=== PATIENT | female | born 1950 | race Caucasian/White ===

== ENCOUNTER → 2020-04-24 11:55 | Outpatient (BNVA) | payer MEDICARE, SELFPAY | PROVIDERS: Family Provider Family Medicine; PCP Family Medicine; Visit Provider Family Medicine | DX: I10 Essential (primary) hypertension (principal) | CPT/HCPCS: 80053; 85025 ==

== ENCOUNTER → 2021-04-24 10:28 | Outpatient (BNVA) | payer MEDICARE, SELFPAY | PROVIDERS: Family Provider Family Medicine; PCP Family Medicine; Visit Provider Family Medicine | DX: Z00.00 Encounter for general adult medical examination without abnormal findings (principal); I10 Essential (primary) hypertension; F41.9 Anxiety disorder, unspecified; M54.42 Lumbago with sciatica, left side; M54.41 Lumbago with sciatica, right side; G89.29 Other chronic pain | CPT/HCPCS: 80053; 85025 ==

== ENCOUNTER 2022-04-22 17:30 | Observation (INO) | payer MEDICARE, SELFPAY ==
[2022-04-22] VITALS (7 sets, daily range): BP systolic 136–197; BP diastolic 62–98; PULSE 62–76; RESP 14–20; TEMP 36.8; O2SAT 95–98; BMI 15.5
--- NOTE | 2022-04-22 17:34 | XR_ITS ---
WS: [id number] XR chest 1V portable [id number] REASON FOR EXAM: chest pain FINDINGS: Thoracic aorta is calcified without significant tortuosity or ectasia. Normal heart size. Calcified granulomatous disease in both hemithoraces. The lungs are hyperexpanded with significant flattening of the hemidiaphragms. Ill-defined areas of l ucency throughout both lungs compatible with central lobar emphysema. No acute pulmonary parenchymal or pleural abnormality. No significant abnormality of the bony thorax. XR/XR chest 1V portable [id number] IMPRESSION: Obstructive lung disease, central lobar emphysema. No acute abnormality.
--- NOTE | 2022-04-22 17:34 | ECG_ITS ---
[facility] Test Date: 2022-04-22 Pat Name: Lyndsay Jerome Department: Room: Gender: Female Coo: : 1950 Requested By: Slime Ch Order Number: [id number] Ilsa MD: Thompson Henriquez M.D. Measurements Intervals [place] Rate: 70 P: 87 CT: 180 QRS: 91 QRSD: 123 T: 74 QT: 408 QTc: 443 Interpretive Statements SINUS RHYTHM RIGHT BUNDLE BRANCH BLOCK [120+ ms QRS DURATION, UPRIGHT V1, 40+ ms S IN I/aVL/V4/V5/V6] INTERPRETATION BASED ON A DEFAULT AGE OF 40 YEARS No previous ECG available for comparison Electronically Signed On 04-22-2022 21:51:07 CDT by Thompson Henriquez M.D. [email or web address].[employer]/store/NU/[id number] f
--- NOTE | 2022-04-22 17:46 | ED_ITS ---
HPI - General Adult General: Chief complaint: Extremity Problem,Nontraumatic Stated complaint: NUMBNESS ON LEFT SIDE Time Seen by Provider: 04/22/22 17:32 History of Present Illness: Patient is a 71-year-old female with a history of hypertension, anxiety and lower back pain who presents the emergency room with complaints of left shoulder/neck pain, L sided facial numbness nausea and vomiting since 3:30 PM. Since then, patient also reports left-sided facial numbness and left-sided neck pain. Patient says that this is sudden onset. Denies any active chest pain, shortness of breath or dyspnea on exertion or pleuritic chest pain. Denies any diaphoresis, nausea/vomiting, diarrhea, melena/hematochezia, abdominal complaints or complaints at this time. NIHSS score of 0 on arrival. Denies any recent trauma or injuries. Onset:3:30pm Duration:ongoing Location:home Severity:moderate Associated symptoms: Deny chest pain, dyspnea, nausea, rash, palpitations or vomiting Review of Systems Const: Denies: fever(s) or chills Eyes: Denies: change in vision ENMT: Denies: mouth pain Card: Denies: chest pain or palpitations Resp: Denies: dyspnea or non-productive cough GI: Denies: abdominal pain, nausea, vomiting or diarrhea : Denies: dysuria Musc: Reports: neck pain (+L sided neck pain) and extremity pain (+L shoulder pain) Skin/Breast: Denies: rash or new lesions Neuro: Reports: other (+L facial numbness); Denies: weakness in extremities Psych: Reports: other (Normal mood) Pro/Lymph: Denies: easy bruising PFS ED PFSH: Medical History Anxiety Chronic low back pain Hypertension Social History Smoking and tobacco status: current every day smoker Alcohol intake: never Physical Exam Const: COMMON NORMALS: alert HENMT: COMMON NORMALS: atraumatic HEAD & SCALP: atraumatic MOUTH: moist mucous membranes not abnormal Eye: COMMON NORMALS: EOMs intact bilaterally and conjunctivae normal CONJUNCTIVA: Yes conjunctivae normal Neck/C-Spine: COMMON NORMALS: full ROM and supple Resp: COMMON NORMALS: normal respiratory effort and clear to auscultation bilaterally AUSCULTATION: clear to auscultation bilaterally Cardio: COMMON NORMALS: regular rate RATE: regular rate GI: COMMON NORMALS: Soft to palpation and non-tender PALPATION: Yes Soft to palpation OTHER: No focal TTP. NO guarding rebound, guarding, rigidity. No CVA tenderness to percussion. Neg Ponce/Neg McBurney's point tenderness, no suprabupic tenderness to palpation. Extremity: COMMON NORMALS: full ROM Neuro: SENSORIUM/ORIENTATION: Yes alert MOTOR EXAM: No Abnormal motor stren gth present and Other motor observations present (no focal motor deficits) OTHER: Mental status? Awake, alert, and oriented to self, year, month, location, and situation.? Following simple axial and appendicular commands.? Has appropriate fund of knowledge, comprehension, and insight.? Able to recall and understands pertinent aspects of medical history and current treatment status.? ? Language? Speech is fluent without word-finding difficulties.? Intact naming, expression, medical receptionist medical assistant, and repetition.? ? Cranial nerves? 2,3,4,6: PERRL, EOMI with no nystagmus. 5: Intact sensation to light touch, symmetric? 7: Smile symmetrical, no facial droop.? 8: Hearing grossly intact.? 9,10: Normal palate movement.? 11: Normal strength in trapezius bilaterally 12: Tongue protrudes midline.? ? Motor examination? Normal bulk & tone. Strength as follows (R/L): Delts (5/5), Biceps (5/5), Triceps (5/5), Wrist ext (5/5), hip flexors (5/5), plantarflexors (5/5), dorsiflexors (5/5). Sensation? Light Touch: Grossly intact and equal in upper and lower extremities bila terally? Romberg: Negative.? Distal joint position sense intact ? Coordination? Xlwjhp-jh-zprj-finger movements intact without dysmetria or past-pointing.? Rapid fingertaps: preserved amplitude without decriment.? No tremor, myoclonus or truncal ataxia.? ? Gait/stance? Steady, normal narrow base gait with appropriate arm swing and turning.? Tandem gait without hesitation or loss of balance. Psych: COMMON NORMALS: speech normal SPEECH: Yes normal speech MOOD & AFFECT: Yes euthymic mood Course Vital Signs: Vital signs: Vital Signs Temperature 97.8 F 04/23/22 14:14 Pulse Rate 88 04/23/22 16:00 Respiratory Rate 14 04/23/22 16:00 Blood Pressure 190/65 04/23/22 16:00 Pulse Oximetry 98 04/23/22 15:36 Oxygen Delivery Me thod 04/23/22 15:36 MDM - General Adult Medical Decision Making 71-year-old female with a history of hypertension lower back pain presenting to the emergency room with left facial numbness, and left-sided neck pain and left shoulder pain. On exam, patient's NIH stroke scale is 0. On ambulation, patient slightly leans towards the left. Rest of neuro exam is unremarkable. Do not suspect acute stroke at this time as patient has NIH stroke scale 0. Patient has no prior history of strokes. Work-up today showed a white count of 8.5. Sodium 128. Patient received a liter of fluid continues to feel lightheadedness upon standing. Patient had intermittent nausea vomiting on arrival. Patient received Zofran feeling symptomatically improved. Troponin x2 with delta less than 5. EKG is nonischemic. Patient continues to have intermittent lightheadedness. Patient admitted to hospital for further work-up. CT head and CT head and neck negative for any signs of dissection. 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 Disposition: admission Lab Data : 04/23/22 01:39 04/23/22 01:39 Radiology Impressions Chest X-Ray 04/22/22 17:34 IMPRESSION: Obstructive lung disease, central lobar emphysema. No acute abnormality. Head/Neck CTA 04/22/22 20:23 IMPRESSION: No large vessel stenosis or occlusion. IMPRESSION: 1. Right: Approximately 77% stenosis of the right internal carotid artery with calcified plaque. Vertebral artery is patent. 2. Left: Approximately 20% stenosis of the left internal carotid artery with calcified plaque. Mild multifocal stenosis of the left vertebral artery with calcified plaque. REFERENCES: NASCET CRITERIA. The degree of stenosis in the cervical segment of the internal carotid artery is based on NASCET criteria. Normal is no stenosis. Mild is less than 50% stenosis. Moderate is 50-69% stenosis. Severe is 70% to 99% stenosis. Total occlusion is no detectable patent lumen. Cervical Spine CT 04/22/22 22:21 IMPRESSION: No acute abnormality. Laboratory Results WBC 8.5 10^3/uL (4.0-10.0) 04/22/22 17:55 RBC 4.90 10^6/uL (4.1-5.3) 04/22/22 17:55 Hgb 15.5 g/dL (11.5-15.3) H 04/22/22 17:55 Hct 45.5 % (37.0-47.0) 04/22/22 17:55 MCV 92.9 fl (81-99) 04/22/22 17:55 MCH 31.6 pg (28.0-34.0) 04/22/22 17:55 MCHC 34.1 g/dL (30.0-36.0) 04/22/22 17:55 RDW 12.4 % (12.1-15.1) 04/22/22 17:55 Plt Count 237 10^3/cmm (130-400) 04/22/22 17:55 MPV 10.5 fL (7.4-10.4) H 04/22/22 17:55 Neut % (Auto) 57.3 % 04/22/22 17:55 Lymph % (Auto) 27.9 % 04/22/22 17:55 [place] % (Auto) 13.3 % 04/22/22 17:55 Eos % (Auto) 0.6 % 04/22/22 17:55 Baso % (Auto) 0.4 % 04/22/22 17:55 Neut # (Auto) 4.85 10^3/uL (1.8-7.7) 04/22/22 17:55 Lymph # (Auto) 2.4 10^3/uL (0.8-4.8) 04/22/22 17:55 [place] # (Auto) 1.1 10^3/uL (0.2-0.9) H 04/22/22 17:55 Eos # (Auto) 0.1 10^3/uL (0.0-0.8) 04/22/22 17:55 Baso # (Auto) 0.0 10^3/uL (0.0-0.1) 04/22/22 17:55 Nucleated RBC % (auto) 0 % 04/22/22 17:55 Nucleated RBCs # 0.0 /100WBC 04/22/22 17:55 D-Dimer 0.39 ug/mIFEU (0-0.59) 04/22/22 17:55 Sodium 128 mmol/L (136-145) L 04/22/22 17:55 Potassium 4.1 mmol/L (3.5-5.1) 04/22/22 17:55 Chloride 92 mmol/L (98-107) L 04/22/22 17:55 Carbon Dioxide 27 mmol/L (22-29) 04/22/22 17:55 Anion Gap 13.1 (5-19) 04/22/22 17:55 BUN 9 mg/dL (8-23) 04/22/22 17:55 Creatinine 0.5 mg/dL (0.5-0.9) 04/22/22 17:55 GFR Calculation 122.0 mL/min (90-130) 04/22/22 17:55 Glucose 132 mg/dL (65-115) H 04/22/22 17:55 Calculated Osmolality 267 mOsm/kg (285-295) L 04/22/22 17:55 Calcium 8.7 mg/dL (8.5-10.5) 04/22/22 17:55 Troponin T Baseline 15 ng/L (0-10) H 04/22/22 17:55 Troponin T 120 Minute 14.08 ng/L (0-10) H 04/22/22 19:32 Delta Troponin T -0.92 ABS# (0-10) L 04/22/22 19:32 Troponin T Hi Sens 6Hr 18.52 ng/L (0-10) H 04/22/22 01:39 Troponin T Hi Sens 6Hr Delta 0.52 ng/L (0-12) 04/22/22 01:39 Imaging Data Other Imaging: Radiologist's impression: [facility] [address] [place] [address] CT Scan Report Signed Patient: Lyndsay Jerome Unit #: [id number] : 1950 Age/Sex: 71 / F ADM Date: 04/22/22 Loc: ER Room/Bed: Attending Dr: Ordering Provider/Ordering MD: Slime Ch MD Date of Service: 04/22/22 Procedure(s): CT angio headneck* [id number] Accession Number(s): [id number] Report Number: [id number] PROCEDURE INFORMATION: Exam: CTA Head With Contrast, Arteriography Exam date and time: 04/22/2022 8:36 PM Age: 71 years old Clinical indication: Cognitive deficit and headache and weakness; Type not specified; Additional info: Possible dissection TECHNIQUE: Imaging protocol: Computed tomographic angiography of the head with contrast. Exam focused on the arteries. 3D rendering (Not supervised by radiologist): MIP and/or 3D reconstructed images were created by the technologist. Radiation optimization: All CT scans at this facility use at least one of these dose optimization techniques: automated exposure control; mA and/or kV adjustment per patient size (includes targeted exams where dose is matched to clinical indication); or iterative reconstruction. Contrast material: OMNIPAQUE 350; Contrast volume: 80 ml; Contrast route: INTRAVENOUS (IV);? COMPARISON: No relevant prior studies available. RADIATION DOSE METRICS: Total DLP (mGy-cm): 430.1 FINDINGS: ANTERIOR CIRCULATION: Right internal carotid artery: Intracranial segment is patent with no significant stenosis. No aneurysm. Right middle cerebral artery: No occlusion or significant stenosis. No aneurysm.? Right anterior cerebral artery: No occlusion or significant stenosis. No aneurysm.? Left internal carotid artery: Intracranial segment is patent with no significant stenosis. No aneurysm. Left middle cerebral artery: No occlusion or significant stenosis. No aneurysm.? Left anterior cerebral artery: No occlusion or significant stenosis. No aneurysm.? POSTERIOR CIRCULATION: Right vertebral artery: No occlusion or significant stenosis. No aneurysm.? Left vertebral artery: No occlusion or significant stenosis. No aneurysm.? Basilar artery: No occlusion or significant stenosis. No aneurysm. Right posterior cerebral artery: No occlusion or significant stenosis. No aneurysm.? Left posterior cerebral artery: No occlusion or significant stenosis. No aneurysm.? Brain: No definite mass, mass effect, or midline shift. Cerebral ventricles: No ventriculomegaly. Bones/joints: Unremarkable. No acute fracture. Soft tissues: Unremarkable. PROCEDURE INFORMATION: Exam: CTA Neck With Contrast Exam date and time: 04/22/2022 8:36 PM Age: 71 years old Clinical indication: Cognitive deficit and headache and weakness; Type not specified; Additional info: Possible dissection TECHNIQUE: Imaging protocol: Computed tomographic angiography of the neck with contrast. 3D rendering (Not supervised by radiologist): MIP and/or 3D reconstructed images were created by the technologist. Radiation optimization: All CT scans at this facility use at least one of these dose optimization techniques: automated exposure control; mA and/or kV adjustment per patient size (includes targeted exams where dose is matched to clinical indication); or iterative reconstruction. Contrast material: OMNIPAQUE 350; Contrast volume: 80 ml; Contrast route: INTRAVENOUS (IV);? COMPARISON: No relevant prior studies available. RADIATION DOSE METRICS: Total DLP (mGy-cm): 430.1 FINDINGS: Right common carotid artery: No stenosis. No dissection or occlusion. Right internal carotid artery: Approximately 77% stenosis of the right internal carotid artery with calcified plaque. Right external carotid artery: No occlusion or stenosis of the origin.? Left common carotid artery: No stenosis. No dissection or occlusion. Left internal carotid artery: Approximately 20% stenosis of the left internal carotid artery with calcified plaque. Left external carotid artery: No occlusion or stenosis of the origin.? Right vertebral artery: No stenosis. No dissection or occlusion. Left vertebral artery: Mild multifocal stenosis of the left vertebral artery with calcified plaque. Soft tissues: Normal. No significant soft tissue swelling. Bones/joints: No acute fracture. Lungs: Emphysematous changes in bilateral visualized lungs. CT/CT angio headneck* [id number] IMPRESSION: No large vessel stenosis or occlusion. ? ? IMPRESSION: 1. Right: Approximately 77% stenosis of the right internal carotid artery with calcified plaque. Vertebral artery is patent. 2. Left: Approximately 20% stenosis of the left internal carotid artery with calcified plaque. Mild multifocal stenosis of the left vertebral artery with calcified plaque. ? REFERENCES: NASCET CRITERIA. The degree of stenosis in the cervical segment of the internal carotid artery is based on NASCET criteria. Normal is no stenosis. Mild is less than 50% stenosis. Moderate is 50-69% stenosis. Severe is 70% to 99% stenosis. Total occlusion is no detectable patent lumen. ? 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
[2022-04-22 18:04] LABS: Basophils % 0.4 %; Eosinophils # 0.1 10^3/uL (0.0-0.8); Eosinophils % 0.6 %; Hematocrit 45.5 % (37.0-47.0); Hemoglobin 15.5 g/dL (11.5-15.3); Lymphocytes # 2.4 10^3/uL (0.8-4.8); Lymphocytes % 27.9 %; Mean Corpuscular HGB Conc 34.1 g/dL (30.0-36.0); Mean Corpuscular Hemoglobin 31.6 pg (28.0-34.0); Mean Corpuscular Volume 92.9 fl (81-99); Mean Platelet Volume 10.5 fL (7.4-10.4); Monocytes # 1.1 10^3/uL (0.2-0.9); Monocytes % 13.3 %; Neutrophils # 4.85 10^3/uL (1.8-7.7); Neutrophils % 57.3 %; Nucleated Red Blood Cells % 0 %; Platelet Count 237 10^3/cmm (130-400); Red Cell Distribution Width 12.4 % (12.1-15.1); White Blood Count 8.5 10^3/uL (4.0-10.0)
[2022-04-22 18:18] LABS: D Dimer 0.39 ug/mIFEU (0-0.59)
[2022-04-22 18:27] LABS: Troponin(5th) Baseline 15 ng/L (0-10)
[2022-04-22 18:28] LABS: Anion Gap 13.1 (5-19); Blood Urea Nitrogen 9 mg/dL (8-23); Calcium 8.7 mg/dL (8.5-10.5); Carbon Dioxide 27 mmol/L (22-29); Chloride 92 mmol/L (98-107); Creatinine Clr Calc Pharmacy 39.8268; Glucose 132 mg/dL (65-115); Osmolality Calculated 267 mOsm/kg (285-295); Potassium 4.1 mmol/L (3.5-5.1); Sodium 128 mmol/L (136-145)
[2022-04-22] MEDS: ondansetron 2 mg/ML SDV 2 mL 4 MG IVP (18:29)
--- NOTE | 2022-04-22 19:34 | ECG_ITS ---
[facility] Test Date: 2022-04-22 Pat Name: Lyndsay Jerome Department: Room: Gender: Female Editor Sound: : 1950 Requested By: Slime Ch Order Number: [id number] Ilsa MD: Thompson Henriquez M.D. Measurements Intervals [place] Rate: 63 P: 86 [place]: 185 QRS: 89 QRSD: 121 T: 76 QT: 442 QTc: 453 Interpretive Statements SINUS RHYTHM POSSIBLE LEFT ATRIAL ENLARGEMENT [-0.1mV P-WAVE IN V1/V2] RIGHT BUNDLE BRANCH BLOCK [120+ ms QRS DURATION, UPRIGHT V1, 40+ ms S IN I/aVL/V4/V5/V6] Compared to ECG 04/22/2022 17:58:50 No significant changes Electronically Signed On 04-22-2022 21:51:51 CDT by Thompson Henriquez M.D. [email or web address].[employer]/store/OM/[id number]
[2022-04-22 20:07] LABS: Troponin 5 2HR 14.08 ng/L (0-10)
[2022-04-22 20:09] LABS: Troponin 5 2HR Delta -0.92 ABS# (0-10)
--- NOTE | 2022-04-22 20:23 | CTR_ITS ---
PROCEDURE INFORMATION: Exam: CTA Head With Contrast, Arteriography Exam date and time: 04/22/2022 8:36 PM Age: 71 years old Clinical indication: Cognitive deficit and headache and weakness; Type not specified; Additional info: Possible dissection TECHNIQUE: Imaging protocol: Computed tomographic angiography of the head with contrast. Exam focused on the arteries. 3D rendering (Not supervised by radiologist): MIP and/or 3D reconstructed images were created by the technologist. Radiation optimization: All CT scans at this facility use at least one of these dose optimization techniques: automated exposure control; mA and/or kV adjustment per patient size (includes targeted exams where dose is matched to clinical indication); or iterative reconstruction. Contrast material: OMNIPAQUE 350; Contrast volume: 80 ml; Contrast route: INTRAVENOUS (IV); COMPARISON: No relevant prior studies available. RADIATION DOSE METRICS: Total DLP (mGy-cm): 430.1 FINDINGS: ANTERIOR CIRCULATION: Right internal carotid artery: Intracranial segment is patent with no significant stenosis. No aneurysm. Right middle cerebral artery: No occlusion or significant stenosis. No aneurysm. Right anterior cerebral artery: No occlusion or significant stenosis. No aneurysm. Left internal carotid artery: Intracranial segment is patent with no significant stenosis. No aneurysm. Left middle cerebral artery: No occlusion or significant stenosis. No aneurysm. Left anterior cerebral artery: No occlusion or significant stenosis. No aneurysm. POSTERIOR CIRCULATION: Right vertebral artery: No occlusion or significant stenosis. No aneurysm. Left vertebral artery: No occlusion or significant stenosis. No aneurysm. Basilar artery: No occlusion or significant stenosis. No aneurysm. Right posterior cerebral artery: No occlusion or significant stenosis. No aneurysm. Left posterior cerebral artery: No occlusion or significant stenosis. No aneurysm. Brain: No definite mass, mass effect, or midline shift. Cerebral ventricles: No ventriculomegaly. Bones/joints: Unremarkable. No acute fracture. Soft tissues: Unremarkable. PROCEDURE INFORMATION: Exam: CTA Neck With Contrast Exam date and time: 04/22/2022 8:36 PM Age: 71 years old Clinical indication: Cognitive deficit and headache and weakness; Type not specified; Additional info: Possible dissection TECHNIQUE: Imaging protocol: Computed tomographic angiography of the neck with contrast. 3D rendering (Not supervised by radiologist): MIP and/or 3D reconstructed images were created by the technologist. Radiation optimization: All CT scans at this facility use at least one of these dose optimization techniques: automated exposure control; mA and/or kV adjustment per patient size (includes targeted exams where dose is matched to clinical indication); or iterative reconstruction. Contrast material: OMNIPAQUE 350; Contrast volume: 80 ml; Contrast route: INTRAVENOUS (IV); COMPARISON: No relevant prior studies available. RADIATION DOSE METRICS: Total DLP (mGy-cm): 430.1 FINDINGS: Right common carotid artery: No stenosis. No dissection or occlusion. Right internal carotid artery: Approximately 77% stenosis of the right internal carotid artery with calcified plaque. Right external carotid artery: No occlusion or stenosis of the origin. Left common carotid artery: No stenosis. No dissection or occlusion. Left internal carotid artery: Approximately 20% stenosis of the left internal carotid artery with calcified plaque. Left external carotid artery: No occlusion or stenosis of the origin. Right vertebral artery: No stenosis. No dissection or occlusion. Left vertebral artery: Mild multifocal stenosis of the left vertebral artery with calcified plaque. Soft tissues: Normal. No significant soft tissue swelling. Bones/joints: No acute fracture. Lungs: Emphysematous changes in bilateral visualized lungs. CT/CT angio headneck* [id number] IMPRESSION: No large vessel stenosis or occlusion. IMPRESSION: 1. Right: Approximately 77% stenosis of the right internal carotid artery with calcified plaque. Vertebral artery is patent. 2. Left: Approximately 20% stenosis of the left internal carotid artery with calcified plaque. Mild multifocal stenosis of the left vertebral artery with calcified plaque. REFERENCES: NASCET CRITERIA. The degree of stenosis in the cervical segment of the internal carotid artery is based on NASCET criteria. Normal is no stenosis. Mild is less than 50% stenosis. Moderate is 50-69% stenosis. Severe is 70% to 99% stenosis. Total occlusion is no detectable patent lumen.
[2022-04-22] MEDS: sodium chloride 0.9% 500 ML IV (20:50)
[2022-04-22] MEDS: iohexol 350 mg/mL 100 mL Btl IV (20:55)
--- NOTE | 2022-04-22 22:21 | CTR_ITS ---
PROCEDURE INFORMATION: Exam: CT Cervical Spine Without Contrast Exam date and time: 04/22/2022 10:36 PM Age: 71 years old Clinical indication: Other: Paresthesia TECHNIQUE: Imaging protocol: Computed tomography of the cervical spine without contrast. Radiation optimization: All CT scans at this facility use at least one of these dose optimization techniques: automated exposure control; mA and/or kV adjustment per patient size (includes targeted exams where dose is matched to clinical indication); or iterative reconstruction. COMPARISON: CT angio headneck* [id number] 04/22/2022 8:36 PM RADIATION DOSE METRICS: Total DLP (mGy-cm): 149.87 FINDINGS: Bones/joints: There is multilevel uncovertebral and facet hypertrophy with neural foramina narrowing. No acute fracture. Lungs: Emphysematous changes in the visualized lung apices. Soft tissues: Unremarkable. CT/CT cervical spin wo con* [id number] IMPRESSION: No acute abnormality.
--- NOTE | 2022-04-22 22:21 | USCV_ITS ---
Lyndsay Jerome Age: 71 Gender: F : 1950 Exam Date: 04/22/2022 22:53 Ordering Phys: Adonay Fatima MD Technologist: FINESSE Exam Location: [facility] [place] Indication: CVA. BP: 141 / 64 HR: 72 Rhythm: Sinus Technical Quality: Adequate MEASUREMENTS (Male / Female) Normal Values 2D ECHO LV Diastolic Diameter PLAX 2.4 cm 4.2 - 5.9 / 3.9 - 5.3 cm LV Systolic Diameter PLAX 1.5 cm IVS Diastolic Thickness 1.3 cm 0.6 - 1.0 / 0.6 - 0.9 cm IVS Systolic Thickness 1.7 cm LVPW Diastolic Thickness 0.8 cm 0.6 - 1.0 / 0.6 - 0.9 cm LVPW Systolic Thickness 1.3 cm LVOT Diameter 1.5 cm LV Ejection Fraction 2D Teich 69.2 % LV Ejection Fraction MOD 2C 73.2 % LV Ejection Fraction 2C AL 73.8 % LA Diameter 2.1 cm LA Width 2.2 cm LA Height 3.5 cm RA Width 2.0 cm RA Height 2.8 cm Aorta at Sinotubular Diameter 2.5 cm IVC Diameter 1.2 cm M-MODE Aortic Annulus Diameter 2.5 cm LA Ao Ratio MM 0.8 MV E Point Septal Separation 0.3 cm DOPPLER AV Peak Velocity 99.0 cm/s LVOT Peak Velocity 100.0 cm/s AV Area Cont Eq vti 2.2 cm squared AV Area Cont Eq pk 1.8 cm squared MV Area PHT 2.7 cm squared Mitral E to A Ratio 1.1 MV E' Velocity 50.0 cm/s Mitral E to MV E' Ratio 24.0 Mitral E to LV E' Lateral Ratio 25.3 Mitral E to LV E' Septal Ratio 23.4 TR Peak Velocity 249.0 cm/s TR Peak Gradient 24.8 mmHg TV Peak E Velocity 52.0 cm/s Right Atrial Pressure 5.0 mmHg Pulmonary Artery Systolic Pressu 29.8 mmHg PV Peak Velocity 74.0 cm/s RV Acceleration Time 0.1 s RV Ejection Time 0.4 s RV AcT/ET 0.3 FINDINGS Left Ventricle Normal left ventricular size, systolic function and wall thickness, with no regional wall motion abnormalities. Left ventricular ejection fraction is estimated at 70 -75 %. Grade II diastolic dysfunction, moderately elevated filling pressures. Right Ventricle Normal right ventricular size and systolic function. Right ventricular systolic pressure 28 mmHg. Right Atrium Normal right atrial size. Left Atrium Normal left atrial size. Mitral Valve Mild mitral annular calcification. Mildly thickened mitral valve. No mitral valve stenosis. No mitral valve regurgitation. Aortic Valve Probably tricuspid aortic valve. No aortic valve stenosis. No aortic valve regurgitation. Tricuspid Valve Structurally normal tricuspid valve. No tricuspid valve stenosis. Mild tricuspid valve regurgitation. Pulmonic Valve Structurally normal pulmonic valve. No pulmonary valve stenosis. Trace pulmonary valve regurgitation. Pericardium No pericardial effusion. Aorta Normal-sized aortic root. IVC Normal IVC dimension with >50% respiratory change of the inferior vena cava. CONCLUSIONS 1. Normal left ventricular size, systolic function and wall thickness, with no regional wall motion abnormalities. Left ventricular ejection fraction is estimated at 70 -75 %. Grade II diastolic dysfunction, moderately elevated filling pressures. 2. Normal right ventricular size and systolic function. 3. Pulmonary pressure estimated at 28 mmHg. 4. Mild tricuspid valve regurgitation. 5. No prior similar studies to compare. Lyn Cardoza MD (Electronically Signed) Final Date: 23 April 2022 12:42 S
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
--- NOTE | 2022-04-22 22:54 | PC.NURSE ---
report to EAMON Tobin on Med surg
[2022-04-23] VITALS (10 sets, daily range): BP systolic 131–190; BP diastolic 65–76; PULSE 65–88; RESP 14–16; TEMP 36.5–36.8; O2SAT 93–98
--- NOTE | 2022-04-23 00:43 | PC.NURSE ---
Patient received from ED via stretcher. Patient transferred to bed x3 assist. Tolerated well. Patient was then assisted up to BSC x1 assist. Patient felt very light. Noted patient to appear very emaciated and frail. Weighed patient and obtained 61.[address] Fatima and received telephone order for dietary consult.
[2022-04-23] MEDS: atorvastatin 40 mg Tablet PO (00:59)
[2022-04-23] MEDS: sodium chloride 0.9% 1,000 ML 75 ML IV (00:59)
[2022-04-23 02:25] LABS: Basophils % 0.2 %; Eosinophils % 0.1 %; Lymphocytes # 1.6 10^3/uL (0.8-4.8); Lymphocytes % 18.6 %; Mean Corpuscular HGB Conc 34.1 g/dL (30.0-36.0); Mean Corpuscular Volume 93.8 fl (81-99); Mean Platelet Volume 11.4 fL (7.4-10.4); Monocytes # 0.9 10^3/uL (0.2-0.9); Monocytes % 10.2 %; Neutrophils # 6.15 10^3/uL (1.8-7.7); Neutrophils % 70.3 %; Nucleated Red Blood Cells % 0 %; Platelet Count 207 10^3/cmm (130-400); Red Blood Count 4.37 10^6/uL (4.1-5.3); Red Cell Distribution Width 12.4 % (12.1-15.1); White Blood Count 8.8 10^3/uL (4.0-10.0)
[2022-04-23 02:54] LABS: Estmated Average Glucose 126
[2022-04-23 02:58] LABS: Troponin 5 6HR 18.52 ng/L (0-10)
[2022-04-23 03:01] LABS: Anion Gap 16.9 (5-19); Blood Urea Nitrogen 9 mg/dL (8-23); Calcium 8.3 mg/dL (8.5-10.5); Carbon Dioxide 22 mmol/L (22-29); Chloride 93 mmol/L (98-107); Chol HDL Ratio 2.38 mg/dL (0.0-4.40); Cholesterol 138 mg/dL (0-200); Glucose 106 mg/dL (65-115); HDL Cholesterol 58 mg/dL (60-100); LDL Cholesterol Calculated 71 mg/dL (50-129); LDL HDL Ratio 1.22 RATIO (0.00-3.22); Osmolality Calculated 265 mOsm/kg (285-295); Potassium 3.9 mmol/L (3.5-5.1); Sodium 128 mmol/L (136-145); Thyroid Stimulating Hormone 1.03 uIU/mL (0.27-4.20); Triglycerides 43 mg/dL (0-150)
[2022-04-23 03:08] LABS: Troponin 5 6HR Delta 0.52 ng/L (0-12)
--- NOTE | 2022-04-23 06:31 | PC.NURSE ---
Assisted patient up to BSC with max assist. Patient continues to favor her left side. No facial droop observed, speech clear and appropriate, however, does c/o dizziness with any movement. Patient is back to bed with max assist x1.
[2022-04-23] MEDS: pantoprazole DR 40 mg Tablet PO (08:51)
--- NOTE | 2022-04-23 10:56 | PC.CHAP ---
Pastoral Care Encounter/Spiritual Assessment Type of Contact [] Declined nurse supervisor visit [] Patient/Family/Request visit [] Outpatient visit [] Follow-up visit [] Physician referral [] Code/Alert x[] Routine visit [] Staff referral [] Actively dying [] Patient sleeping [] Family support [] [] Out of room [] Palliative care [] [] Receiving care in room [] Pre-surgical visit [] Trauma [] Long length of stay [] ICU visit [] Other: Relational/Emotional Strength [x] Patient feels connected with others/family/visitors/staff [] Distress [] Loneliness/isolation [] Abandonment Spirituality of Patient [x] Person of Shereen [] Attends Gnosticism of their Shereen [x] Believes in Prayer [] Reads Bible or Yazidism materials [] There are Spiritual issues to be addressed It Recruiter Interventions [xx] Prayer [] Active listening [] Non-anxious presence [] Spiritual/emotional support [] Crisis/trauma care [] Spiritual counseling [] Bereavement support [] Provided bereavement packet [] Provided Bible/devotional materials [] Provided toy/stuffed animal, coloring book to patient or family member [] Provided Communion [] Anointing/[place] [] Salvation [x] Completed spiritual assessment [] Other: Impact on Illness or Injury [] Angry [] Fearful [] Anxious [] Often cries [] Exhaustion [] Unable to work [] Unable to attend oriental orthodox [] Unable to walk/stand [] Unable to read [] Unable to drive [] Unable to eat/drink [] Unable to sleep [] Unable to be with family [] Patient intubated [] Other: Summary Time spent with patient 10 min
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
--- NOTE | 2022-04-23 13:45 | PC.NURSE ---
Physician requested [address] Stringer. Follow up appointment made for 05/06/22 at 1130.
== END 2022-04-23 16:40 | disposition home or self-care (01) ==
LOC: ER 21:47 → MEDSURG 22:39
PROVIDERS: Admitting Provider Family Medicine; Emergency Provider Emergency Medicine; PCP Family Medicine; Visit Provider Student in an Organized Health Care Education/Training Program
DX: I63.9 Cerebral infarction, unspecified (principal); I65.21 Occlusion and stenosis of right carotid artery; M54.12 Radiculopathy, cervical region; J43.2 Centrilobular emphysema; I10 Essential (primary) hypertension; I34.0 Nonrheumatic mitral (valve) insufficiency; Z88.0 Allergy status to penicillin; Z88.2 Allergy status to sulfonamides; Z88.1 Allergy status to other antibiotic agents
CPT/HCPCS: 36415; 70496; 70498; 71045; 72125; 80048; 80061; 83036; 84443; 84484; 85025; 85378; 93005; 93306; 96361; 96374; 97161; 97165; 97530; 99285; G0378; J2405; J7030; J7040; Q9967

== ENCOUNTER → 2022-05-23 11:07 | Outpatient (BNVA) | payer MEDICARE, SELFPAY | PROVIDERS: PCP Family Medicine; Visit Provider Thoracic Surgery (Cardiothoracic Vascular Surgery) | DX: I65.21 Occlusion and stenosis of right carotid artery (principal); F17.210 Nicotine dependence, cigarettes, uncomplicated | CPT/HCPCS: 99203 ==

== ENCOUNTER → 2022-06-26 13:53 | Outpatient (BNVA) | payer MEDICARE, SELFPAY | PROVIDERS: PCP Family Medicine; Visit Provider Thoracic Surgery (Cardiothoracic Vascular Surgery) | DX: I65.21 Occlusion and stenosis of right carotid artery (principal); F17.210 Nicotine dependence, cigarettes, uncomplicated; I10 Essential (primary) hypertension | CPT/HCPCS: 99213 ==

== ENCOUNTER → 2022-08-22 09:17 | Outpatient (BNVA) | payer MEDICARE, SELFPAY | PROVIDERS: PCP Family Medicine; Visit Provider Nurse Practitioner Family | DX: R19.7 Diarrhea, unspecified (principal); R63.4 Abnormal weight loss | CPT/HCPCS: 80053; 83690; 85025 ==

== ENCOUNTER → 2022-10-01 14:33 | Outpatient (BNVA) | payer MEDICARE, SELFPAY | PROVIDERS: PCP Family Medicine; Visit Provider Thoracic Surgery (Cardiothoracic Vascular Surgery) | DX: I65.21 Occlusion and stenosis of right carotid artery (principal); F17.210 Nicotine dependence, cigarettes, uncomplicated | CPT/HCPCS: 99213 ==

== ENCOUNTER 2022-11-06 12:09 | Outpatient (CLI) | payer MEDICARE, SELFPAY ==
--- NOTE | 2022-11-06 12:29 | CT_ITS ---
WS: [id number] CT ANGIOGRAM CAROTID ARTERIES HISTORY: BILATERAL CAROTID STENOSIS TECHNIQUE: CT angiogram is performed of the carotid arteries. During arterial injection imaging is ob tained from the skull base to the aortic arch in 1.25 mm imaging. Coronal and sagittal reformats are submitted, MIP imaging also reviewed. Additional multiplanar reformats of the carotid arteries are quintana bmitted. NASCET criteria utilized. All CT scans at [facility] use at least one of these dose optimization techniques: automated exposure control; mA and/or kV adjustment per patient size (includ es targeted exams where dose is matched to clinical indication); or iterative reconstruction. CONTRAST: Omnipaque 350; 70 mL IV. DLP: 177.15 mGy.cm COMPARISON: 04/22/2022 Right carotid: Common carotid artery: Arises normally from the innominate. Mild scattered plaque. Internal carotid artery: Focal plaque burden at the bifurcation with narrowing of the lumen high-grad e stenosis involving the bifurcation and origin of the ICA estimated at 86%.. Mild progression since the prior examination of 77%. External carotid artery: Moderate stenosis origin ECA. Left carotid: Common carotid artery: Normally arises from the arch. Scattered plaque and intimal thickening but no high-grade stenosis. Increasing plaque towards the bifurcation. Internal carotid artery: Focal calcified plaque with mild narrowing proximal ICA. External carotid artery: Patent. Right vertebral artery: Unremarkable. Left vertebral artery: Dominant. Scattered intermittently visualized calcified plaque with no high-gr pauline stenosis or occlusion. Subclavian arteries: Atherosclerotic disease but no stenosis. Upper thorax: Chronic emphysema. Thyroid gland: Bilateral subcentimeter thyroid nodules. Calcifications are noted bilaterally also in the thyroid. Osseous structures: Mild cervical spondylosis. Skull base: Negative. CT/CT angio neck 86893 IMPRESSION: 1. RIGHT cervical carotid artery stenosis involving the bifurcation and proxim al ICA 86% with mild progression since the prior study. 2. Less than 50% stenosis LEFT ICA with no progression. 3. Otherwise mild atherosclerotic disease within the vertebral arteries and th e subclavian arteries. No additional high-grade stenoses. 4. Chronic emphysema.
[2022-11-06 13:07] LABS: Blood Urea Nitrogen 8 mg/dL (8-23)
[2022-11-06] MEDS: iohexol 350 mg/mL 500 mL Btl (per mL) IV (13:25)
== END 2022-11-06 12:10 | disposition home or self-care (01) ==
PROVIDERS: PCP Family Medicine; Visit Provider Thoracic Surgery (Cardiothoracic Vascular Surgery)
DX: I65.23 Occlusion and stenosis of bilateral carotid arteries (principal); J43.9 Emphysema, unspecified
CPT/HCPCS: 70498; 82565; 84520; Q9967

== ENCOUNTER → 2022-11-14 13:54 | Outpatient (BNVA) | payer MEDICARE, SELFPAY | PROVIDERS: PCP Family Medicine; Visit Provider Thoracic Surgery (Cardiothoracic Vascular Surgery) | DX: I65.21 Occlusion and stenosis of right carotid artery (principal); F17.210 Nicotine dependence, cigarettes, uncomplicated; I10 Essential (primary) hypertension | CPT/HCPCS: 99213 ==

== ENCOUNTER → 2023-01-21 10:58 | Outpatient (BNVA) | payer MEDICARE, SELFPAY | PROVIDERS: PCP Family Medicine; Visit Provider Family Medicine | DX: I10 Essential (primary) hypertension (principal); I65.21 Occlusion and stenosis of right carotid artery | CPT/HCPCS: 80053; 80061 ==

== ENCOUNTER → 2023-02-13 13:00 | Outpatient (BNVA) | payer MEDICARE, SELFPAY | PROVIDERS: PCP Family Medicine; Visit Provider Thoracic Surgery (Cardiothoracic Vascular Surgery) | DX: I65.21 Occlusion and stenosis of right carotid artery (principal); F17.210 Nicotine dependence, cigarettes, uncomplicated; I10 Essential (primary) hypertension | CPT/HCPCS: 99213 ==

== ENCOUNTER 2023-03-04 10:15 | Inpatient (IN) | payer MEDICARE, SELFPAY ==
[2023-02-27 10:31] VITALS: BMI 13.1
[2023-02-27 11:01] LABS: Basophils % 0.5 %; Eosinophils # 0.1 10^3/uL (0.0-0.8); Eosinophils % 0.7 %; Hematocrit 48.4 % (37.0-47.0); Hemoglobin 16.2 g/dL (11.5-15.3); Lymphocytes # 2.1 10^3/uL (0.8-4.8); Lymphocytes % 25.3 %; Mean Corpuscular HGB Conc 33.5 g/dL (30.0-36.0); Mean Corpuscular Hemoglobin 31.9 pg (28.0-34.0); Mean Corpuscular Volume 95.3 fl (81-99); Mean Platelet Volume 10.8 fL (7.4-10.4); Monocytes # 0.7 10^3/uL (0.2-0.9); Monocytes % 8.5 %; Neutrophils % 64.4 %; Nucleated Red Blood Cells % 0 %; Platelet Count 222 10^3/cmm (130-400); Red Blood Count 5.08 10^6/uL (4.1-5.3); Red Cell Distribution Width 13.5 % (12.1-15.1); White Blood Count 8.1 10^3/uL (4.0-10.0)
[2023-02-27 11:09] LABS: Add Urine Microscopic? NO; Charge for UA Resulting for Rev
[2023-02-27 11:13] LABS: Specific Gravity, Urine 1.005 (1.005-1.030); Urine Appearance Clear (CLEAR); pH Urine 7 (5-7)
[2023-02-27 11:14] LABS: Bilirubin Urine Neg (Negative); Blood Urine Neg (Negative); Glucose Urine UA Norm (Normal); Ketones Urine Negative (Negative); Leukocyte Esterase Urine Negative (Negative); Nitrate Urine Negative (Negative); Protein Urine Neg (Negative); Urine Color Light yellow (Yellow); Urobilinogen Urine Norm (Negative)
[2023-02-27 11:15] LABS: Blood Urea Nitrogen 13 mg/dL (8-23); Calcium 9.4 mg/dL (8.5-10.5); Carbon Dioxide 28 mmol/L (22-29); Chloride 97 mmol/L (98-107); Creatinine Clr Calc Pharmacy 33.2543; Glucose 97 mg/dL (65-115); Osmolality Calculated 278 mOsm/kg (285-295); Sodium 134 mmol/L (136-145)
--- NOTE | 2023-02-27 15:53 | ANES.PREANE2 ---
Pre-Anesthetic Assessment Height/Weight: Height 1.57 m Weight 32.659 kg Operation Date: 03/04/23 07:00 Proposed Procedures p right carotid 54617,I65.29(Right) - Marcus Doty MD Familial anesthetic complications: none Was Beta Chan taken within 24 hours: Yes Was Clonidine taken within 24 hours: N/A Social Tobacco and No alcohol Exam alert, oriented x 3 and regular rate & rhythm rhonchi Airway Submandibular: within normal limits Cervical ROM: within normal limits Mallampati: Class I Dentition: false (upper) Pulmonary Chronic Obstructive Pulmonary Disease CV/HEM Hypertension and Peripheral Vascular Disease CCESSION #: [id number] CT/CT angio neck [id number] IMPRESSION: ? 1.? RIGHT cervical carotid artery stenosis involving the bifurcation and proximal ICA 86% with mild progression since the prior study. 2.? Less than 50% stenosis LEFT ICA with no progression. 3.? Otherwise mild atherosclerotic disease within the vertebral arteries and the subclavian arteries. No additional high-grade stenoses. 4.? Chronic emphysema. Metabolic Hyperlipidemia [facility] [place] Lower Back Pain and Osteoarthritis/DJD Neuropsych Anxiety Anesthetic Plan ASA status: 3 Anesthesia: General Other: A.line Medications/Allergies Home Medications Medication Instructions Recorded Confirmed Last Taken Type cetirizine 10 mg capsule (Zyrtec) 10 mg PO DAILY #90 caps 04/24/21 02/27/23 04/22/22 08:00 Rx diazepam 5 mg tablet 5 mg PO TID PRN sleep 60 days #180 04/30/22 02/27/23 02/26/23 Rx tabs atorvastatin 40 mg tablet 20 mg PO BEDTIME #45 tabs 05/23/22 02/27/23 02/26/23 Rx clopidogrel 75 mg tablet (Plavix) 75 mg PO DAILY #90 tabs 05/23/22 02/27/23 02/26/23 Rx cholestyramine-aspartame 4 gram 1 g PO DAILY #231 grams 10/17/22 02/27/23 Unknown Rx oral powder (Cholestyramine Light) metoprolol tartrate 50 mg tablet 25 mg PO BID #60 tabs 12/16/22 02/27/23 02/27/23 Rx Allergies Allergy/AdvReac Type Severity Reaction Status Date / Time aspirin Allergy NA Verified 02/27/23 10:09 Penicillins Allergy NA Verified 02/27/23 10:09 Sulfa (Sulfonamide Allergy NA Verified 02/27/23 10:09 Antibiotics) tramadol [From Ultram] Allergy ALGY-Hives Verified 02/27/23 10:09 [facility] Anesthesia Medical History Anxiety Chronic low back pain Hypertension Family History Father CAD (coronary artery disease) Mother CAD (coronary artery disease) Hypertension Brother CAD (coronary artery disease) Hypertension Grandmother Stroke Denies family history of Diabetes Cancer Social History Smoking and tobacco status: current every day smoker cigarettes Packs smoked per day: 0.5 Years cigarettes smoked: 55 Alcohol intake: never Substance/Drug Use: never Lives independently: Yes Household members: spouse Housing: House Marital status: Number of children: 1 Pets and animals: No Data Anesthesia 02/27/23 10:40 02/27/23 10:40 Short CBC 02/27/23 Range/Units 10:40 WBC 8.1 (4.0-10.0) 10^3/uL Hgb 16.2 H (11.5-15.3) g/dL Hct 48.4 H (37.0-47.0) % MCV 95.3 (81-99) fl Plt Count 222 (130-400) 10^3/cmm Neut % (Auto) 64.4 % Neut # (Auto) 5.20 (1.8-7.7) 10^3/uL BMP 02/27/23 10:40 Sodium 134 L Potassium 5.0 Chloride 97 L Carbon Dioxide 28 BUN 13 Creatinine 0.7 Glucose 97 Calcium 9.4 Urine 02/27/23 Range/Units 10:55 Urine Color Light yellow (Yellow) Urine Appearance Clear (CLEAR) Urine pH 7 (5-7) Ur Specific [place] 1.005 (1.005-1.030) Urine Protein Neg (Negative) Urine Glucose (UA) Norm (Normal) Urine Ketones Negative (Negative) Urine Nitrate Negative (Negative) Urine Bilirubin Neg (Negative) Ur Leukocyte Esterase Negative (Negative) Blood Bank 02/27/23 10:40 Blood Type A Positive Rho(D) Type Positive Antibody Screen Negative Cardiac Studies: Echocardiogram 04/22/22
[2023-03-04 06:05] VITALS: BP 192/86; PULSE 69; RESP 17; TEMP 36.6; O2SAT 95
--- NOTE | 2023-03-04 06:11 | ECG_ITS ---
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 Measurements Intervals [place] Rate: 68 P: 85 CO: 179 QRS: 16 QRSD: 126 T: 69 QT: 400 QTc: 428 Interpretive Statements SINUS RHYTHM INDETERMINATE AXIS RIGHT BUNDLE BRANCH BLOCK [120+ ms QRS DURATION, UPRIGHT V1, 40+ ms S IN I/aVL/V4/V5/V6] Compared to ECG 04/22/2022 19:34:43 Indeterminate axis now present Electronically Signed On 03-04-2023 17:42:09 CDT by Thompson Henriquez M.D. [id number]
--- NOTE | 2023-03-04 06:15 | P.HPUD_ITS ---
Surgery/Procedure H&P Update DATE OF PROCEDURE: March 04, 2023 DATE H&P PERFORMED: 02/13/23 H&P UPDATE INFORMATION: I have reviewed H&P completed within last 30 days, I have examined patient prior to procedure and Changes to prior documentation as noted here CHANGES TO PREVIOUS DOCUMENTATION: I again carefully discussed with Ms. Bennett and her daughter who has arrived from [place], [place] as well as her , the details, recommendations, and risks of carotid endarterectomy. I specifically discussed the risks for stroke, temporary or permanent hoarseness, deviation of the tongue, asymmetry of the face, infection, major bleeding, pain after surgery, and need for long-term surveillance. They appear to be well versed as to the indication and risk of the surgery. Ms. Jerome and her family wish to proceed. Unfortunately, she c ontinues to smoke. There has been no substantial weight gain since her last visit with us. 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 PLANNED PROCEDURE: Operation Date: 03/04/23 07:00 Proposed Procedures p right carotid 40120,I65.29(Right) - Marcus Doty MD
[2023-03-04] MEDS: sodium chloride 0.9% 1,000 ML 30 ML IV (06:30)
--- NOTE | 2023-03-04 06:42 | P.ANESUD_ITS ---
Pre-Anesthetic Update Pre-Anesthetic Assessment: Date of Surgery/Procedure: 03/04/23 Preop Mariah gnosis: Right carotid artery stenosis Proposed Procedure: Operation Date: 03/04/23 07:00 Proposed Procedures p right carotid 06870,I65.29(Right) - Marcus Doty MD Any changes to Pre-Anesthetic Assessment?: No Last Intake: Intake Last Liquid Date 03/03/23 Last Liquid Time 20:00 Last Solid Date 03/03/23 Last Solid Time 18:00 Vitals: Temperature 97.8 F 03/04/23 06:05 Temperature Source Temporal Artery S can 03/04/23 06:05 Pulse Rate 69 03/04/23 06:05 Respiratory Rate 17 03/04/23 06:05 Blood Pressure 192/86 03/04/23 06:05 Blood Pressure Macey n 121 03/04/23 06:05 Pulse Oximetry 95 03/04/23 06:05 Oxygen Delivery Me thod Room Air 03/04/23 06:05 Exam: Pre-Anes Outpt Exam: alert, oriented x 3, clear to auscultation bilaterally and regular rate & rhythm Cardiac Studies: Echocardiogram 04/22/22
[2023-03-04] MEDS: vancomycin 1,000 MG in sodium chloride 0.9% 250 ML 250 MG IV (06:59)
[2023-03-04] MEDS: vancomycin 1,000 MG SDV 1000 MG (07:53)
[2023-03-04] MEDS: heparin,porcine 1,000 unit/mL INJ 1 mL 1000 UNIT IRRIGATION (07:57)
[2023-03-04] MEDS: lidocaine 2% INJ 20 mL 5 ML INJECTION (07:59)
--- NOTE | 2023-03-04 08:07 | SUR.OPER ---
0700 pre op assessment shows equal upper body strength, equal lower body strength, midline tongue, right pupil reactive, left pupil cloudy and pink, pt states this is normal for her.
[2023-03-04 09:08] VITALS: BP 115/42; PULSE 61; O2SAT 99
--- NOTE | 2023-03-04 11:28 | P.OP_ITS ---
Operative Report Date of procedure: March 04, 2023 Pre-op diagnosis: Preop Diagnosis Right carotid artery stenosis Post-op diagnosis: same Procedure done: Right carotid endarterectomy with patch angioplasty Implants: Hemashield patch Specimens removed/disposition: Carotid plaque Surgeon: Marcus Doty Anesthesia: General Estimated blood loss (mL): 50 Complications: None: Neurologically intact immediately postop Condition: stable Disposition: ICU Brief History: The patient is a very pleasant 72-year-old female with a long history of tobacco use. She had a CVA which was right hemispheric with left-sided weakness in the fall of last year. She was found to have a high-grade right ICA stenosis. With physical therapy she is also recovered to near baseline. We originally radha eduled for endarterectomy in September though she had a substantial gastroenteritis at that time requiring us to delay surgery. Because of the time interval involved, we repeated her CTA which revealed her original lesion had now increased from 77% stenosis to 86% stenosis. Details of risk of carotid endarterectomy were discussed very carefully. The recommendation to consider intervention to reduce her statistical risk related to this high-grade lesion and prior right hemispheric CVA were carefully discussed. All complications were carefully reviewed. She and family wish to proceed. She was therefore likely admitted today for planned endarterectomy. Procedure: Ms. Jerome was placed on the OR table and underwent general endotracheal ane sthesia with a neurological monitoring endotracheal tube as well as placement of a right radial arterial line. Bihemispheric monitoring pads were placed as well as grounding and sensing pads for nerve conduction evaluation during neck dissection.The entire upper chest and right neck were sterilely prepped and draped. Incision was made along the anterior border of the sternomastoid muscle and carried down to the platysma with cautery. Dissection from this point forward was carried out utilizing Metzenbaum scissors and limited use of bipolar cautery. The internal jugular vein was dissected free and the facial vein was ligated, oversewn, and divided. Dissection was continued down through the ansa cervicalis with preservation of major branches. Minor branches were divided if required to allow for adequate exposure. Nerve conduction evaluation was performed throughout the dissection for protection of the recurrent nerve. We subsequently reached the common carotid artery. Dissection was then continued proximally to distally across the bifurcation. Vessel loops were placed around the common carotid artery, internal carotid artery, and external carotid artery. Distally, the base of the hypoglossal nerve could be identified and was protected. Care was taken during this dissection to avoid injury to the vagus nerve. The patient was then heparinized with 10,000 units. The systolic blood pressure was elevated to 160. Following this, in a rapid sequenced fashion, the distal internal carotid artery was clamped followed by clamping of the common carotid artery and external carotid artery. #11 scalpel blade was used to open the common carotid artery proximally. Tafoya scissors were then utilized to extend this arteriotomy across the distal common carotid artery and ulcerated very stenotic plaque and continue this further at the bifurcation across the calcific plaque in the internal carotid artery until we had reached normal intima. The internal carotid artery clamp was briefly flashed with evidence of brisk back bleeding, therefore we elected not to shunt. It should be noted that bi-hemispheric oximetry was recorded throughout the procedure. Next, a freer elevator was utilized to create a dissection plane the plaque from intima at the proximal portion of the arteriotomy. This was then divided with a #11 scalpel blade. This plaque was then further dissected along the intimal plane proximally to distally across the bifurcation. Utilizing an everting technique, plaque was removed from the external carotid artery with brisk flow. This plaque was then dissected free up the internal carotid artery to a feathered edge. Heparinized saline solution was utilized to remove any loose debris. Next, a Hemashield patch was brought into the field and sewn into position utilizing a running 6-0 Prolene suture, thereby completing our patch angioplasty. At the completion of the patch, the external carotid artery was opened followed by the common carotid artery and finally the internal carotid artery, thereby reestablishing cerebral flow. Areas of extravasation were repaired with 6-0 Prolene suture. After 5 minutes, heparin was reversed with protamine. Hemostasis was confirmed. The wound was irrigated with antibiotic solution. A small, flat, Delfin-Azevedo drain was placed in the wound and connected to bulb suction. Sponge and needle count was correct. The wound was then closed in 2 layers of 3-0 Vicryl suture. Skin was reapproximated in a subcuticular manner with 4-0 Monocryl suture. A pressure dressing was then applied. The patient was awakened from anesthesia and spontaneous movement of all extremities as well as movement to command was noted. The patient was then transferred to the ICU in stable condition. I did agency legal counsel with the family at completion of the procedure. Ms. Jerome will be monitored in the ICU for the next 24 hours.
[2023-03-04 11:48] VITALS: PULSE 61; O2SAT 94
[2023-03-04] MEDS: pantoprazole 40 mg SDV IVP (11:58)
--- NOTE | 2023-03-04 12:10 | ANE.PACU2 ---
Inpatient post-anesthesia follow up: Airway intact: Yes Vital signs: Temperature 97.8 F Pulse Rate 61 Respiratory Rate 17 Blood Pressure 115/42 Pulse Oximetry 94 Oxygen Delivery Me thod [ Nasal Cannula Current Rate & Del georgette] Oxygen Delivery Me thod Oxymask Oxygen Flow Rate [ Current Rate 2 & Delivery] Fraction of Inspir ed Oxygen Hydration adequate: Yes Nausea and vomiting: Yes Pain level: 1 Mental status: Baseline
[2023-03-04] MEDS: clopidogrel 75 mg Tablet PO (13:54)
[2023-03-04] MEDS: aspirin 81 mg Chew Tablet PO (13:54)
[2023-03-04 16:40] VITALS: TEMP 36.6
[2023-03-04 22:00] VITALS: PULSE 60
[2023-03-05] MEDS: sodium chloride 0.9% 1,000 ML 100 ML IV (05:39)
--- NOTE | 2023-03-05 06:57 | P.DS_ITS ---
Discharge Providers Date of Admission: 03/04/23 10:15 Date of Discharge: March 05, 2023 Attending Provider at Admission: Marcus Doty MD Attending Provider at Discharge: Marcus Doty MD Primary Care Provider: Jelly Stringer MD Reason for Visit Reason for Visit: I65.29 Brief History: Ms. Jerome is a 72-year-old female with an 86% right ICA stenosis and status post right hemispheric CVA last fall. She did have left-sided weakness which has mostly resolved with physical therapy. Consideration for carotid endarterectomy to reduce her statistical increased risk for stroke related to this high-grade lesion was carefully discussed, particularly in light of her prior CVA. Details and risk of surgery were carefully reviewed with her and her family. She wished to proceed. Hospital Course Hospital Course Ms. Jerome was electively admitted on March 04 and underwent right carotid endarterectomy with patch angioplasty. Postoperatively, she convalesced in the ICU where she remained hemodynamically and neurologically intact. She has had low JACQUES drain output. JACQUES drain was discontinued this morning. Surgical site is clean and dry without evidence for swelling or fluid collection. Face is symmetrical. Voice quality is normal. Tongue is midline with protrusion. She has equal strength bilaterally. She is tolerating a diet well without difficulties. Postop discomfort is under good control. She will be discharged to home later today with activity restrictions. She will be scheduled for follow-up at [facility] in 1 week. At the time of discharge, she is in stable condition. Physical Exam Const: COMMON NORMALS: patient oriented x3 Neck/C-Spine: COMMON NORMALS: full ROM and no lymphadenopathy OTHER: Right neck incision is clean, dry, and intact. There is no fluid collection. No evidence for infection. Resp: COMMON NORMALS: normal respiratory effort and clear to auscultation bilaterally AUSCULTATION: clear to auscultation bilaterally Cardio: COMMON NORMALS: regular rate and S1 normal heart sound present RATE: regular rate HEART SOUNDS: S1 normal heart sound present Extremity: COMMON NORMALS: no clubbing, cyanosis or edema Neuro: COMMON NORMALS: patient oriented x3, moves all extremities, no focal motor deficits and no sensory deficits noted Urinary Catheter Management: Sifuentes: Cath Placed During This Visit: yes, but has since been removed by the nurse Reason for Continuing Indwelling Catheter: Accurate Measurement of Urinary Output in Critically Ill Patients Urinary Catheter Date of Insertion: 03/04/23 Urinary Catheter Time of Insertion: 07:25 Date Urinary Catheter Removed: 03/05/23 Time Urinary Catheter Discontinued: 04:00 Discharge Data Studies Completed and Pending Pending at discharge Category Date Time Status Leukocyte Reduced RBC Routine Lab 02/27/23 10:40 Results Type and Screen - Cardiac Routine Lab 02/27/23 10:40 Results Type and Screen Routine Lab 02/27/23 10:40 Results Pathology: Surgical [PTH] Routine Pth 03/04/23 11:45 Received Laboratory Results WBC 8.1 10^3/uL (4.0-10.0) 02/27/23 10:40 RBC 5.08 10^6/uL (4.1-5.3) 02/27/23 10:40 Hgb 16.2 g/dL (11.5-15.3) H 02/27/23 10:40 Hct 48.4 % (37.0-47.0) H 02/27/23 10:40 MCV 95.3 fl (81-99) 02/27/23 10:40 MCH 31.9 pg (28.0-34.0) 02/27/23 10:40 MCHC 33.5 g/dL (30.0-36.0) 02/27/23 10:40 RDW 13.5 % (12.1-15.1) 02/27/23 10:40 Plt Count 222 10^3/cmm (130-400) 02/27/23 10:40 MPV 10.8 fL (7.4-10.4) H 02/27/23 10:40 Neut % (Auto) 64.4 % 02/27/23 10:40 Lymph % (Auto) 25.3 % 02/27/23 10:40 [place] % (Auto) 8.5 % 02/27/23 10:40 Eos % (Auto) 0.7 % 02/27/23 10:40 Baso % (Auto) 0.5 % 02/27/23 10:40 Neut # (Auto) 5.20 10^3/uL (1.8-7.7) 02/27/23 10:40 Lymph # (Auto) 2.1 10^3/uL (0.8-4.8) 02/27/23 10:40 [place] # (Auto) 0.7 10^3/uL (0.2-0.9) 02/27/23 10:40 Eos # (Auto) 0.1 10^3/uL (0.0-0.8) 02/27/23 10:40 Baso # (Auto) 0.0 10^3/uL (0.0-0.1) 02/27/23 10:40 Nucleated RBC % (auto) 0 % 02/27/23 10:40 Nucleated RBCs # 0.0 /100WBC 02/27/23 10:40 Sodium 134 mmol/L (136-145) L 02/27/23 10:40 Potassium 5.0 mmol/L (3.5-5.1) 02/27/23 10:40 Chloride 97 mmol/L (98-107) L 02/27/23 10:40 Carbon Dioxide 28 mmol/L (22-29) 02/27/23 10:40 Anion Gap 14.0 (5-19) 02/27/23 10:40 BUN 13 mg/dL (8-23) 02/27/23 10:40 Creatinine 0.7 mg/dL (0.5-0.9) 02/27/23 10:40 GFR Calculation Not Reportable 02/27/23 10:40 Glucose 97 mg/dL (65-115) 02/27/23 10:40 Calculated Osmolality 278 mOsm/kg (285-295) L 02/27/23 10:40 Calcium 9.4 mg/dL (8.5-10.5) 02/27/23 10:40 Urine Color Light yellow (Yellow) 02/27/23 10:55 Urine Appearance Clear (CLEAR) 02/27/23 10:55 Urine pH 7 (5-7) 02/27/23 10:55 Ur Specific [place] 1.005 (1.005-1.030) 02/27/23 10:55 Urine Protein Neg (Negative) 02/27/23 10:55 Urine Glucose (UA) Norm (Normal) 02/27/23 10:55 Urine Ketones Negative (Negative) 02/27/23 10:55 Urine Blood Neg (Negative) 02/27/23 10:55 Urine Nitrate Negative (Negative) 02/27/23 10:55 Urine Bilirubin Neg (Negative) 02/27/23 10:55 Urine Urobilinogen Norm mg/dL (Negative) 02/27/23 10:55 Ur Leukocyte Esterase Negative (Negative) 02/27/23 10:55 Blood Type A Positive 02/27/23 10:40 Rho(D) Type Positive 02/27/23 10:40 Antibody Screen Negative 02/27/23 10:40 Crossmatch See Detail 02/27/23 10:40 Procedures Performed Right carotid endarterectomy with patch angioplasty on March 04, 2023 Vitals Last Vital Signs Temp 97.8 F 03/04/23 16:40 Pulse 60 03/04/23 22:00 Resp 17 03/04/23 06:05 BP 115/42 03/04/23 09:08 Pulse Ox 94 03/04/23 11:48 O2 Del Method Nasal Cannula 03/04/23 11:48 O2 Flow Rate 2 03/04/23 11:48 Discharge Plan Discharge Patient Disposition: Home Condition: Stable Prescriptions: New hydrocodone-acetaminophen 5-325 mg Tablet 1 tab PO Q8H PRN (Reason: Moderate Pain) Qty: 12 0RF Continued Zyrtec 10 mg capsule 10 mg PO DAILY Qty: 90 2RF diazepam 5 mg tablet 5 mg PO TID PRN (Reason: sleep) 60 Days Qty: 180 1RF Plavix 75 mg tablet 75 mg PO DAILY Qty: 90 3RF atorvastatin 40 mg tablet 20 mg PO BEDTIME Qty: 45 3RF Cholestyramine Light 4 gram powder 1 g PO DAILY Qty: 231 12RF Rx Instructions: administer w/meal; avoid other meds within 1hr before or 4-6hr after dose metoprolol tartrate 50 mg tablet 25 mg PO BID Qty: 60 2RF Discharge Orders: Discharge Order (Routine); Ordered 03/05/23 Ordered By: Marcus Doty Referrals: Marcus Doty MD [Physician] - 1 week Discharge Diet: Usual diet Discharge Activity: Limit activity as instructed Patient Instructions: Opioid Safety Activity Restrictions/Additional Instructions: May remove bandage in 2 days May begin daily showers in 3 days Dry incision carefully after showers. May re-cover if desired to prevent irritation from clothing. No swimming or tub baths x 2 weeks No ointments on incision Report drainage, redness, heat, increased pain, or swelling to clinic No heavy lifting, pulling, or pushing, x2 weeks Discharge Attestations Time Spent in Discharge Care*: less than 30 min Specific Discharge Activities: educating patient, educating and/or supporting family/caregiver, discussing with insurance case manager/social workers/dc planners, documenting/other paperwork and evaluating patient/reviewing data Time Spent in Smoking Cessation: 3 to 10 minutes Again, discussion concerning her substantial tobacco use was reviewed along with this deleterious effects, particularly early postoperative period. She stated understanding, though it is doubtful that she will substantially abstain. Status at Discharge: Cognitive status at discharge: cognitively intact , Behavioral status at discharge: cooperative , Functional status at discharge: independent ambulation , Overall status at discharge: patient is back to baseline Quality Metrics Clinical Quality Measures [ No reported AMI, CVA or VTE this stay] Coding Level of Care Code Acute Code for Chg Fwd Diagnoses
[2023-03-05 07:56] LABS: Glucose Point of Care 72 mg/dL (70-110)
[2023-03-05 09:44] VITALS: PULSE 60
== END 2023-03-05 09:54 | disposition home or self-care (01) | DRG 38 ==
LOC: ICU 10:15
PROVIDERS: Admitting Provider Thoracic Surgery (Cardiothoracic Vascular Surgery); PCP Family Medicine; Visit Provider Thoracic Surgery (Cardiothoracic Vascular Surgery)
PROC: 03CK0ZZ Extirpation of Matter from Right Internal Carotid Artery, Open Approach (ICD-10-PCS; CPT 35301; principal; 2023-03-04 07:00)
DX: I65.21 Occlusion and stenosis of right carotid artery (principal); I69.954 Hemiplegia and hemiparesis following unspecified cerebrovascular disease affecting left non-dominant side; I10 Essential (primary) hypertension; J43.9 Emphysema, unspecified; G89.29 Other chronic pain; M47.816 Spondylosis without myelopathy or radiculopathy, lumbar region; F17.210 Nicotine dependence, cigarettes, uncomplicated; Z79.02 Long term (current) use of antithrombotics/antiplatelets
CPT/HCPCS: 36415; 36416; 51702; 80048; 81003; 82962; 85025; 86850; 86900; 86920; 88304; 93005; 96376; C9113; J0131; J1100; J1200; J1644; J2371; J2405; J2704; J3010; J3370; J3490; J7030

== ENCOUNTER → 2023-03-13 09:31 | Outpatient (BNVA) | payer MEDICARE, SELFPAY | PROVIDERS: PCP Family Medicine; Visit Provider Thoracic Surgery (Cardiothoracic Vascular Surgery) | DX: I65.23 Occlusion and stenosis of bilateral carotid arteries (principal); Z98.890 Other specified postprocedural states; I10 Essential (primary) hypertension; F17.210 Nicotine dependence, cigarettes, uncomplicated | CPT/HCPCS: 99024 ==

== ENCOUNTER 2023-04-29 12:15 | Outpatient (CLI) | payer MEDICARE, SELFPAY ==
--- NOTE | 2023-04-29 12:45 | USCV_ITS ---
Lyndsay Jerome Age: 72 Gender: F : 1950 Exam Date: 04/29/2023 13:08 Ordering Phys: Marcus Doty MD (Andy) ([email or web address] [place]) Technologist: Exam Location: [facility] [place] Indication: hx of rt endart Risk Factors: Previous Vascular Surgery: Right Brachial BP: / Left Brachial BP: / Right Left Velocity (cm/s) Spectral Plaque Velocity (cm/s) Spectral Plaque Syst/Diast Broadening Syst/Diast Broadening 49.70/ 10.10 Prox CCA 86.20 / 16.30 58.30/ 12.40 Mid CCA 77.70 / 15.50 64.50/ 11.70 Distal CCA 66.80 / 17.90 52.00/ 10.90 Prox ICA 68.35 / 16.30 58.25/ 12.85 Mid ICA 80.80 / 18.60 66.00/ 15.50 Distal ICA 87.00 / 16.30 46.60 ECA 55.90 1.02 ICA/CCA 1.01 Antegrade Vertebral Antegrade 63.70/ 11.70 cm/s 60.60/ 13.20 cm/s Bi Subclavian Juniata 57.50 66.00 CONCLUSIONS Right ICA stenosis <50%. Mild atheromatous plaque right carotid bulb/ICA. Left ICA stenosis <50%. Mild atheromatous plaque left carotid bulb/ICA. Normal antegrade Doppler flow noted in the right vertebral artery. Normal antegrade Doppler flow noted in the left vertebral artery. Jun Ngo MD (Electronically Signed) Final Date: 29 April 2023 15:50 S
== END 2023-04-29 12:16 | disposition home or self-care (01) ==
PROVIDERS: PCP Family Medicine; Visit Provider Thoracic Surgery (Cardiothoracic Vascular Surgery)
DX: I65.23 Occlusion and stenosis of bilateral carotid arteries (principal)
CPT/HCPCS: 93880

== ENCOUNTER → 2023-05-08 10:29 | Outpatient (BNVA) | payer MEDICARE, SELFPAY | PROVIDERS: PCP Family Medicine; Visit Provider Thoracic Surgery (Cardiothoracic Vascular Surgery) | DX: Z98.890 Other specified postprocedural states (principal) | CPT/HCPCS: 99024 ==

== ENCOUNTER 2023-10-20 11:22 | Outpatient (CLI) | payer MEDICARE, SELFPAY ==
--- NOTE | 2023-10-20 11:45 | USCV_ITS ---
Lyndsay Jerome Age: 73 Gender: F : 1950 Exam Date: 10/20/2023 11:34 Ordering Phys: Marcus Doty MD (Andy) ([email or web address] [place]) Technologist: TIFFANI Exam Location: [facility] [place] Indication: bilateral carotid stenosis Risk Factors: Previous Vascular Surgery: Right Brachial BP: / Left Brachial BP: / Right Left Velocity (cm/s) Spectral Plaque Velocity (cm/s) Spectral Plaque Syst/Diast Broadening Syst/Diast Broadening 45.50/ 9.40 Prox CCA 54.10 / 11.80 46.60/ 13.80 Mid CCA 51.30 / 14.70 53.10/ 12.70 Hetro Distal CCA 39.10 / 10.90 Hema 68.40/ 14.90 Prox ICA 56.40 / 17.10 Hema 54.20/ 18.10 Mid ICA 91.40 / 24.00 Hetro 64.90/ 17.00 Distal ICA 83.10 / 18.90 67.30 ECA 63.00 1.30 ICA/CCA 2.30 Antegrade Vertebral Antegrade 55.90/ 10.20 cm/s 56.50/ 14.10 cm/s Tri Subclavian Tri 101.5 68.20 0 FINDINGS Comparison:. 04/29/23 No significant elevation of systolic or diastolic velocities. Diffuse bilateral scattered calcified plaque and intimal thickening throughout the common carotid arteries and extending through the bifurcation. Antegrade vertebral arteries. CONCLUSIONS Bilateral ICA stenosis less than 50%. Dr. Edwige Mak DO (Electronically Signed) Final Date: 21 October 2023 08:58 S
== END 2023-10-20 11:23 | disposition home or self-care (01) ==
LOC: RAD 11:22
PROVIDERS: PCP Family Medicine; Visit Provider Thoracic Surgery (Cardiothoracic Vascular Surgery)
DX: I65.23 Occlusion and stenosis of bilateral carotid arteries (principal)
CPT/HCPCS: 93880

== ENCOUNTER → 2023-12-01 15:24 | Outpatient (BNVA) | payer MEDICARE, SELFPAY | PROVIDERS: PCP Family Medicine; Visit Provider Thoracic Surgery (Cardiothoracic Vascular Surgery) | DX: Z98.890 Other specified postprocedural states (principal); F17.210 Nicotine dependence, cigarettes, uncomplicated | CPT/HCPCS: 99213 ==

== ENCOUNTER → 2024-01-08 10:30 | Outpatient (BNVA) | payer MEDICARE, SELFPAY | PROVIDERS: PCP Family Medicine; Visit Provider Nurse Practitioner Family | DX: I10 Essential (primary) hypertension (principal); F41.9 Anxiety disorder, unspecified; R63.4 Abnormal weight loss; M54.42 Lumbago with sciatica, left side; M54.41 Lumbago with sciatica, right side; G89.29 Other chronic pain; M54.2 Cervicalgia; J44.9 Chronic obstructive pulmonary disease, unspecified; F17.200 Nicotine dependence, unspecified, uncomplicated; E03.9 Hypothyroidism, unspecified; E78.5 Hyperlipidemia, unspecified | CPT/HCPCS: 80053; 80061; 84443; 85025 ==

== ENCOUNTER → 2024-01-20 10:06 | Outpatient (BNVA) | payer MEDICARE, SELFPAY | PROVIDERS: PCP Family Medicine; Visit Provider Nurse Practitioner Family | DX: J44.9 Chronic obstructive pulmonary disease, unspecified (principal) | CPT/HCPCS: 71046 ==

== ENCOUNTER → 2024-08-26 14:32 | Outpatient (BNVA) | payer MEDICARE, SELFPAY | PROVIDERS: PCP Family Medicine; Visit Provider Internal Medicine Cardiovascular Disease | DX: R07.9 Chest pain, unspecified (principal) | CPT/HCPCS: 93005 ==

== ENCOUNTER → 2024-10-19 11:33 | Outpatient (BNVA) | payer OTHER, SELFPAY | PROVIDERS: PCP Family Medicine; Visit Provider Nurse Practitioner Family | DX: I10 Essential (primary) hypertension (principal); F41.9 Anxiety disorder, unspecified; E78.5 Hyperlipidemia, unspecified | CPT/HCPCS: 80053; 80061; 84443; 85025 ==

== ENCOUNTER → 2025-05-26 11:36 | Outpatient (BNVA) | payer OTHER, SELFPAY | PROVIDERS: PCP Family Medicine; Visit Provider Nurse Practitioner Family | DX: J43.9 Emphysema, unspecified (principal); J84.10 Pulmonary fibrosis, unspecified | CPT/HCPCS: 71046 ==

== ENCOUNTER 2025-07-15 09:24 | Inpatient (IN) | payer OTHER, SELFPAY ==
[2025-07-15] VITALS (7 sets, daily range): BP systolic 141–174; BP diastolic 71–88; PULSE 106–122; RESP 15–17; TEMP 36.9–37.7; O2SAT 90–93; BMI 11.3; BMI 11.5
--- OUTSIDE RECORDS SUMMARY | 2025-07-15 09:29 | XMS_ITS | Clinical Summary ---
Author Organization [facility] Address [address] [address] Phone Care Team Providers Care Information Support Project Manager Name Role Phone Jelly Stringer MD Primary Care Provider [phone] Allergies Active Allergy Reactions Criticality Noted Date Comments Aspirin Abdominal Pain Low 10/16/2018 Penicillins Rash Medium 10/16/2018 Sulfa (Sulfonamide Antibiotics) Unknown 03/2019 Tramadol Hives High 10/16/2018 Medications diazePAM (VALIUM) 5 mg tablet Take 5 mg by mouth every 6 hours as needed for Anxiety. 10/16/2018 Active lisinopriL (PRINIVIL) 20 mg tablet Take 20 mg by mouth daily. 10/16/2018 Active baclofen (LIORESAL) 10 mg tablet Take 1 Tablet (10 mg) by mouth 3 times daily as needed for Pain. 30 Tablet 0 10/16/2018 Active Immunizations Immunization Administration Dates Next Due (PFIZER ALLIE)(12 YR UP PRIMA RY SERIES) COVID-19 VACCINE - EMERGENCY USE AUTHORIZATION, MRNA, ALLIE(PF) 30 MCG/0.3 ML IM SUSP 01/29/2022 (PFIZER)(12 YR UP) COVID-19 VACCINE - EMERGENCY USE AUTHORIZATION, MRNA, [id number](PF) 30 MCG/0.3 ML IM SUSP 06/18/2021,11/23/2020,11/02/2020 (Pfizer Bivalent)(12 Yr Up) COVID-19 Vaccine - Emergency Use Authorization, MRNA, Lnp-S(Pf) 30 Mcg/0.3 Ml Susp 06/11/2022 Influenza Seasonal Unspecifi ed Formulation IM 06/20/1999 Social History Tobacco Use Types Packs/Day Years Used Date Smoking Tobacco: Every Day Cigarettes Smokeless Tobacco: Never Alcohol Use Standard Drinks/Week Comments Yes 0 (1 standard drink = 0.6 oz pur e alcohol) Comments Unknown Sex and Gender Information Value Date Recorded Sex Assigned at Not on file Legal Sex Female 2:09 PM ROD GREASER Gender Identity Not on file Sexual Orientation Not on file Last Filed Vital Signs Vital Sign Reading Time Taken Comments Blood Pressure 112/80 10/16/2018 3:40 PM ROD GREASER Pulse 80 10/16/2018 3:40 PM ROD GREASER Temperature 36.8 C (98.2 F) 10/16/2018 3:40 PM ROD GREASER Respiratory Rate 18 10/16/2018 3:40 PM ROD GREASER Oxygen Saturation - - Inhaled Oxygen Concentration - - Weight 39.7 kg (87 lb 9.6 oz) 10/16/2018 1:11 PM ROD GREASER Height 157.5 cm (5' 2 ) 10/16/2018 1:11 PM ROD GREASER Body Mass Index 16.02 10/16/2018 1:11 PM ROD GREASER Plan of Treatment Health Maintenance Due Date Last Done Comments DTAP/TDAP/TD VACCINES (1 - Tdap) 1970 PNEUMOCOCCAL VACCINE 50+ YEA RS (1 of 2 - PCV) 1970 BREAST CANCER SCREENING 1991 COLORECTAL SCREENING 1996 Colorectal Cancer Screening 1996 FIT-DNA Q 3 years 1996 FIT/FOBT Q 1 year 1996 Flex Sig/CT Colonography Q 5 years 1996 ZOSTER VACCINE (1 of 2) 2001 OSTEOPOROSIS SCREENING 2016 INFLUENZA VACCINE (#1) 2025 06/20/1999 COVID-19 Vaccine (5 - 2024-2 6 season) 2025 06/11/2022, 01/29/2022, 06/18/2021, Additional history exists RSV VACCINE (60+ or ) (1 - 1-dose 75+ series) 2026 Insurance [facility] MCR Care Teams Information Support Project Manager Relationship Specialty Start Date End Date Jelly Stringer MD [address] [facility] [address] [place] [address] PCP - General Family Practice 01/29/22
--- OUTSIDE RECORDS SUMMARY | 2025-07-15 09:30 | XMS_ITS | Clinical Summary ---
Author Organization [facility] Address [address] [address] Phone Care Team Providers Care Vocational Nurse Name Role Phone Curtis Wilkinson DO Primary Care Provider [phone] Allergies Active Allergy Reactions Criticality Noted Date Comments Aspirin Abdominal Pain Low 10/16/2018 Penicillins Rash Medium 10/16/2018 Sulfa (Sulfonamide Antibiotics) Unknown 03/2019 Tramadol Hives High 10/16/2018 Medications lisinopril (PRINIVIL) 20 mg tablet Take 20 mg by mouth daily. Active diazePAM (VALIUM) 5 mg tablet Take 5 mg by mouth every 6 hours as needed for Anxiety. Active baclofen (LIORESAL) 10 mg tablet Take 1 Tablet (10 mg) by mouth 3 times daily as needed for Pain. 30 Tablet 10/16/2018 Active Immunizations Immunization Administration Dates Next Due ([employer])(12 YR UP) COVID-19 VACCINE - EMERGENCY USE AUTHORIZATION, MRNA, [id number](PF) 30 MCG/0.3 ML IM SUSP 11/23/2020,11/02/2020 Influenza Seasonal Unspecified Formulation IM Social History Tobacco Use Types Packs/Day Years Used Date Smoking Tobacco: Every Day Cigarettes Smokeless Tobacco: Never Alcohol Use Standard Drinks/Week Comments Yes 0 (1 standard drink = 0.6 oz pur e alcohol) occasional Comments Unknown Sex and Gender Information Value Date Recorded Sex Assigned at Not on file Legal Sex Female 4:23 AM ROUTE SALES PERSON Gender Identity Not on file Sexual Orientation Not on file Last Filed Vital Signs Vital Sign Reading Time Taken Comments Blood Pressure 112/80 10/16/2018 3:40 PM ROUTE SALES PERSON Pulse 80 10/16/2018 3:40 PM ROUTE SALES PERSON Temperature 36.8 C (98.2 F) 10/16/2018 3:40 PM ROUTE SALES PERSON Respiratory Rate 18 10/16/2018 3:40 PM ROUTE SALES PERSON Oxygen Saturation 98% 10/16/2018 3:40 PM ROUTE SALES PERSON Inhaled Oxygen Concentration - - Weight 39.7 kg (87 lb 9.6 oz) 10/16/2018 1:11 PM ROUTE SALES PERSON Height 157.5 cm (5' 2 ) 10/16/2018 1:11 PM ROUTE SALES PERSON Body Mass Index 16.02 10/16/2018 1:11 PM ROUTE SALES PERSON Plan of Treatment Health Maintenance Due Date [...] INFLUENZA VACCINE (#1) 2025 06/20/1999 COVID-19 Vaccine (3 - 2024- season) 2025, 11/02/2020 RSV VACCINE (60+ or ) (1 - 1-dose 75+ series) 2026 Insurance [facility] [address] MCR Care Teams Vocational Nurse Relationship Specialty Start Date End Date Curtis Wilkinson DO [address] [place], [place] [id number] PCP - General Family Practice 09/19/14
--- OUTSIDE RECORDS SUMMARY | 2025-07-15 09:30 | XMS_ITS | Encounter Summary ---
Author Organization [facility] Address [address] [place] [address] Care Team Providers Care Social Research Assistant Name Role Phone Curtis Wilkinson DO Primary Care Provider [phone] Encounter Details Date Type Department Care Team (Late st Contact Info) Description 09/19/2014 Ancillary Orders [facility] [place] Admitting [address] [place] [address] Curtis Wilkinson DO [address] [place] [address] Bronchitis (Primary Dx) Social History Tobacco Use Types Packs/Day Years Used Date Smoking Tobacco: Never Assessed Comments Unknown Sex and Gender Information Value Date Recorded Sex Assigned at Not on file Legal Sex Female 4:23 AM CALL WORKER PERSON Gender Identity Not on file Sexual Orientation Not on file documented as of this encounter Plan of Treatment Not on file documented as of this encounter Results * XR CHEST PA AND LATERAL (09/19/2014 10:51 AM CALL WORKER PERSON) Anatomical Region Laterality Modality Chest Computed Radiogr aphy 09/19/2014 10:4 4 AM CALL WORKER PERSON Narrative 09/19/2014 10:56 AM CALL WORKER PERSON PROCEDURE XR CHEST, 2 views, 19 September 2014 COMPARISON Current: PA and lateral chest Prior: no previous studies available for comparison DESCRIPTION Frontal view of the chest shows no infiltrate or atelectasis and the cardiomediastinal silhouette appears normal. There is hyperinflation with flattening of the diaphragm. There is atherosclerosis of the aortic arch. On the lateral view, no infiltrate or spine sign is seen. Costophrenic angles are blunted by hyperinflation posteriorly. IMPRESSION 1. COPD changes 2. no acute infiltrate or congestion Procedure Note Alfredo Begum MD - 09/19/2014 PROCEDURE XR CHEST, 2 views, 19 September 2014 COMPARISON Current: PA and lateral chest Prior: no previous studies available for comparison DESCRIPTION Frontal view of the chest shows no infiltrate or atelectasis and the cardiomediastinal silhouette appears normal. There is hyperinflation with flattening of the diaphragm. There is atherosclerosis of the aortic arch. On the lateral view, no infiltrate or spine sign is seen. Costophrenic angles are blunted by hyperinflation posteriorly. IMPRESSION 1. COPD changes 2. no acute infiltrate or congestion Curtis Wilkinson DO DIAGNOSTIC IMAGING ORDERABLES Fi nal Result documented in this encounter Visit Diagnoses Diagnosis Bronchitis- Primary Bronchitis, not specified as acute or chronic Bronchitis Bronchitis, not specified as acute or chronic documented in this encounter Care Teams Social Research Assistant Relationship Specialty Start Date End Date Curtis Wilkinson DO [address] [place] [address] PCP - General Family Practice 09/19/14 documented as of this encounter
--- OUTSIDE RECORDS SUMMARY | 2025-07-15 09:30 | XMS_ITS | Encounter Summary ---
Author Organization [facility] Address [address] [place] [address] Care Team Providers Care Silk Screen Cutter Name Role Phone Curtis Wilkinson DO Primary Care Provider [phone] Encounter Details Date Type Department Care Team (Latest Contact Info) Description 06/20/1999 [facility] [address] [place] [address] [place] [address] Cervicalgia (Primary Dx); Need vaccination-viral disease Social History Tobacco Use Types Packs/Day Years Used Date Smoking Tobacco: Never Assessed Comments Unknown Sex and Gender Information Value Date Recorded Sex Assigned at Not on file Legal Sex Female 4:23 AM BOAT WORKER Gender Identity Not on file Sexual Orientation Not on file documented as of this encounter Plan of Treatment Not on file documented as of this encounter Visit Diagnoses Diagnosis Cervicalgia- Primary Need vaccination-viral disease Need for prophylactic vaccination and inoculation against other viral diseases documented in this encounter Care Teams Silk Screen Cutter Relationship Specialty Start Date End Date Curtis Wilkinson DO [address] [place] [address] PCP - General Family Practice 09/19/14 documented as of this encounter
--- OUTSIDE RECORDS SUMMARY | 2025-07-15 09:30 | XMS_ITS | Encounter Summary ---
Author Organization [facility] Address [address] [place] [address] Care Team Providers Care Cyber Operator Name Role Phone Curtis Wilkinson DO Primary Care Provider [phone] Encounter Details Date Type Department Care Team (Late st Contact Info) Description 12/15/2001 Outpatient Historical [facility] [address] [place] [phone] Social History Tobacco Use Types Packs/Day Years Used Date Smoking Tobacco: Never Assessed Comments Unknown Sex and Gender Information Value Date Recorded Sex Assigned at Not on file Legal Sex Female 4:23 AM MANAGER NICU Gender Identity Not on file Sexual Orientation Not on file documented as of this encounter Plan of Treatment Not on file documented as of this encounter Visit Diagnoses Not on filedocumented in this encounter Care Teams Cyber Operator Relationship Specialty Start Date End Date Curtis Wilkinson DO [address] [place] [address] PCP - General Family Practice 09/19/14 documented as of this encounter
--- OUTSIDE RECORDS SUMMARY | 2025-07-15 09:30 | XMS_ITS | Encounter Summary ---
Author Organization [facility] Address [address] [place] [address] Care Team Providers Care Turfgrass Technician Name Role Phone Curtis Wilkinson DO Primary Care Provider [phone] Encounter Details Date Type Department Care Team (Late st Contact Info) Description 01/29/2016 Ancillary Orders [facility] Admitting [address] [place] [phone] Curtis Wilkinson DO [address] [place] [address] Social History Tobacco Use Types Packs/Day Years Used Date Smoking Tobacco: Never Assessed Comments Unknown Sex and Gender Information Value Date Recorded Sex Assigned at Not on file Legal Sex Female 4:23 AM IT INFRASTRUCTURE ARCHITECT Gender Identity Not on file Sexual Orientation Not on file documented as of this encounter Plan of Treatment Not on file documented as of this encounter Visit Diagnoses Not on filedocumented in this encounter Care Teams Turfgrass Technician Relationship Specialty Start Date End Date Curtis Wilkinson DO [address] [place], [place] [address] PCP - General Family Practice 09/19/14 documented as of this encounter
--- NOTE | 2025-07-15 10:08 | CTR_ITS ---
PROCEDURE INFORMATION: Exam: CT Abdomen And Pelvis With Contrast Exam date and time: 07/15/2025 11:12 AM Age: 74 years old Clinical indication: Abdominal pain; Generalized; Prior surgery; Surgery date: 6+ months; Surgery type: Appy; PT arrives pov w C/O 'staggering around' yesterday and was worried that she had another stroke. PT was did not notice any slurring or loss of words yesterday at time of event. PT states that today she is hurting in her back, shaking, and nauseated, states that she has been stubling around d/t her back pain. PT has equal charge preparation technician strength and facial symmetry. PT denies new loss of vision, PT is blind in left eye; Additional info: Abdominal pain, can't eat, nausea, weight loss TECHNIQUE: Imaging protocol: Computed tomography of the abdomen and pelvis with contrast. Radiation optimization: All CT scans at this facility use at least one of these dose optimization techniques: automated exposure control; mA and/or kV adjustment per patient size (includes targeted exams where dose is matched to clinical indication); or iterative reconstruction. Contrast material: OMNI 350; Contrast volume: 100 ml; Contrast route: INTRAVENOUS (IV); COMPARISON: CR XR chest 1V portable [id number] 07/15/2025 10:50 AM RADIATION DOSE METRICS: Total DLP (mGy-cm): 278.37 FINDINGS: Lungs: Lungs appear hyperinflated suggestive of COPD. There are dependent hypoventilatory changes and atelectasis lower lobes no pleural effusions. Calcified granulomas demonstrated right lower lobe. Coronary arteries: Coronary artery calcification is present Liver: Liver demonstrates a 9 mm cysts segment 1 had a 8 mm cyst in the posteroinferior right liver lobes. Gallbladder and biliary ducts: Unremarkable. No calcified stones. No ductal dilation. Pancreas: Unremarkable. No ductal dilation. Spleen: Unremarkable. No splenomegaly. Adrenal glands: Normal. No mass. Kidneys and ureters: Unremarkable. No hydronephrosis. Stomach and bowel: Stomach is fluid-filled and distended. There is demonstration of a distal partial obstruction pattern transition appears to be within the pelvic loops of small bowel. There is demonstration of a concentric area of swirling of the small bowel mesentery on image 23 series 5 coronal image on axial image 57 series 3 past this point of apparent transition there is decompressed appearance to the distal small bowel including terminal ileum and colon. Appendix: No evidence of appendicitis. Intraperitoneal space: The possibility of a distal small bowel obstruction related to internal hernia can not be excluded and should be considered. Further surgical evaluation recommended. There is small amount of free fluid present in the pelvis no free air. Vasculature: Unremarkable. No abdominal aortic aneurysm. Lymph nodes: Unremarkable. No enlarged lymph nodes. Urinary bladder: Unremarkable as visualized. Reproductive: There are findings of myomatous uterus. Bones/joints: Unremarkable. No acute fracture. Soft tissues: Unremarkable. CT/CT abdomen pelvis w con* [id number] IMPRESSION: Findings most suggestive of a distal high-grade small bowel obstruction secondary to but could represent an internal hernia in the right pelvis involving the pelvic ileum as above noted with decompressed appearance of the terminal ileum colon further surgical evaluation recommended Findings of hyperinflation and emphysema with atelectasis lower lobes Findings of liver cysts. Myomatous uterus
--- NOTE | 2025-07-15 10:08 | XR_ITS ---
WS: [id number] Exam: XR chest 1V portable [id number] Date/Time of Exam: 07/15/2025 10:20 AM Reason For Exam: sob/weight loss Comparison 05/26/2025. Lungs are hyperinflated and clear. Normal cardiomediastinal silhouette. No pleural effusion. Bony structures are intact. Surgical clips in the RIGHT neck. XR/XR chest 1V portable [id number] IMPRESSION: 1. Marked pulmonary hyperinflation. No acute process.
--- NOTE | 2025-07-15 10:09 | ED_ITS ---
Documented by User: SOURAV Jimenez 07/15/25 13:44 HPI - General Adult 2 General: Chief complaint: Back Pain/Injury Stated complaint: NV / low rt abd pain Time Seen by Provider: 07/15/25 09:58 Source: patient and family () Mode of arrival: wheelchair Limitations: no limitations History of Present Illness: Patient is a 74-year-old female presents to ED today along with her for medical evaluation. When asked what brings her to the emergency department today-she looks at her who tells me that she continues to lose weight and won't eat anything . She saw her PCP Dr. Stringer back in February for malnutrition. She was placed on Mirtazapine but states this medication does not help. She states she does not eat because she feels nauseous and often times has abdominal pain with eating. She did have some vomiting this morning. also states that patient, over the past week or so, has been intermittently staggering around their house. Patient states this is intermittent and sometimes she seems to ambulate normally. She tells me it is because when she stands up her legs feel like Jell-O. She is not having any acute neurologic or motor deficits upon arrival. Patient tells me she is an everyday smoker. She states she feels short of breath when she attempts to smoke but otherwise has not noticed dyspnea. She has been encouraged to wear oxygen in the past but refuses. She tells me she takes [place] breathing treatments for COPD. Onset (ago): week(s) Pain Consistency: intermittent Exacerbating factors: eating Associated symptoms: Reports dyspnea ( only when attempting to smoke ) and nausea; Deny chest pain, confusion, headache(s), rash, palpitations, syncope or vomiting Treatments prior to arrival: none Related Data Home Medications ?Medication ?Instructions ?Recorded ?Confirmed metoprolol tartrate 50 mg tablet 25 mg PO BID PRN high blood 07/15/25 07/15/25 pressure mirtazapine 15 mg tablet 15 mg PO BEDTIME PRN rest/ap petite 07/15/25 07/15/25 Previous Rx's ?Medication ?Instructions ?Recorded amlodipine 5 mg tablet 5 mg PO DAILY high blood pre ssure 10/19/24 #90 tabs diazepam 5 mg tablet 5 mg PO TID PRN sleep 30 day s #90 07/03/25 tabs hydrocodone 5 mg-acetaminophen 325 0.5 tab PO Q6H PRN Moderate Pain 05/17/25 mg tablet 30 days #60 tabs ipratropium bromide 0.02 % 2.5 ml inhalation QID PRN C OPD 05/26/25 solution for inhalation #150 mL ipratropium bromide 17 2 puff inhalation QID #12.9 grams 05/26/25 mcg/actuation HFA aerosol inhaler (Atrovent HFA) tiotropium bromide 18 mcg capsule 1 cap inhalation GENOVEVA LY COPD #120 05/26/25 with inhalation device (Spiriva inhalations with HandiHaler) Allergies Allergy/AdvReac Type Severity Reaction Status Date / Time aspirin Allergy NA Verified 07/15/25 09:27 Penicillins Allergy NA Verified 07/15/25 09:27 Sulfa (Sulfonamide Allergy NA Verified 07/15/25 09:27 Antibiotics) tramadol (From Ultram) Allergy ALGY-Hives Verified 07/15/25 09:27 Review of Systems 2 Const: Reports: change in appetite and change in weight; Denies: fever(s), chills or body aches Eyes: Denies: change in vision, blurry vision, photophobia, floaters or seeing flashes Card: Denies: chest pain, palpitations, irregular heart rhythm, lightheadedness, syncope or dyspnea on exertion Resp: Reports: dyspnea ( only when attempting to smoke ); Denies: productive cough, non-productive cough, wheezing or pain on inspiration GI: Reports: abdominal pain and nausea; Denies: vomiting, hematemesis, heartburn, diarrhea or change in bowel habits : Denies: flank pain, dysuria or hematuria Musc: Denies: neck pain, back pain, extremity pain, extremity swelling or joint pain Skin/Breast: Denies: rash Neuro: Denies: headache(s), numbness in extremities, weakness in extremities, sensory changes, dizziness, confusion, Slurred speech present or difficulty communicating thoughts PFSH ED 2 PFSH: Medical History Right-sided extracranial carotid artery stenosis Anxiety Chronic low back pain Hypertension Family History Father CAD (coronary artery disease) Mother CAD (coronary artery disease) Hypertension Brother CAD (coronary artery disease) Hypertension Grandmother Stroke Denies family history of Diabetes Cancer Social History Smoking and tobacco/nicotine status: current every day tobacco/nicotine user cigarettes Packs smoked per day: 0.5 Years cigarettes smoked: 55 Alcohol intake: never Substance/Drug Use: never Lives independently: Yes Household members: spouse Housing: House Marital status: Number of children: 1 Pets and animals: No Physical Exam 2 Const: COMMON NORMALS: no acute distress, patient oriented x3, no limitations and alert GENERAL APPEARANCE: cooperative and frail appearing NUTRITIONAL APPEARANCE: cachectic ORIENTATION/CONSCIOUSNESS: Yes awake, Yes oriented to person, Yes oriented to place and Yes oriented to time OTHER: pt weighs 61 pounds-she is extremely cachectic appearing HENMT: COMMON NORMALS: normocephalic and atraumatic HEAD & SCALP: normal to inspection, normocephalic and atraumatic FACE & SINUS: normal facial exam and face symmetric Neck/C-Spine: COMMON NORMALS: no lymphadenopathy Resp: COMMON NORMALS: normal respiratory effort and clear to auscultation bilaterally AUSCULTATION: clear to auscultation bilaterally Cardio: COMMON NORMALS: regular rhythm RATE: tachycardic RHYTHM: regular rhythm GI: COMMON NORMALS: Soft to palpation INSPECTION: Yes normal to inspection AUSCULTATION: Yes Hypoactive bowel sounds present PALPATION: Yes Soft to palpation, Yes Tenderness to palpation present (GI) (diffusely), No Guarding due to palpation present (GI) and No Rigid due to palpation : COMMON NORMALS: Yes no CVA tenderness BLADDER/KIDNEY EXAM: Yes no CVA tenderness Back/Pelvis: COMMON NORMALS: no CVA tenderness THORACIC SPINE/UPPER BACK: N o thoracic spinal tenderness LUMBAR SPINE/LOWER BACK: Yes lumbar spinal tenderness (chronic-at baseline) Extremity: COMMON NORMALS: normal to inspection and capillary refill normal GENERAL: Yes normal exam except as noted Neuro: MONICA COMA SCALE: document GCS findings [place] coma scale eye opening: Spontaneous Monica coma scale verbal response: Orientated [place] coma scale motor response: Obey commands [place] coma scale total score: 15 COMMON NORMALS: patient oriented x3, CN's II-XII intact bilaterally, moves all extremities, no focal motor deficits and no sensory deficits noted S ENSORIUM/ORIENTATION: Yes alert, Yes oriented to person, Yes oriented to place and Yes oriented to time Skin: COMMON NORMALS: no rashes or lesions noted GENERAL SKIN EXAM: no rashes or lesions noted Course 2 Vital Signs: Vital signs: Vital Signs Temperature 98.5 F 07/15/25 09:27 Pulse Rate 111 H 07/15/25 12:53 Respiratory Rate 16 07/15/25 09:27 Blood Pressure 152/71 07/15/25 12:53 Pulse Oximetry 92 07/15/25 12:53 Oxygen Delivery Me thod Room Air 07/15/25 12:53 MDM - General Adult Medical Decision Making Patient is a 74-year-old extremely frail and cachectic appearing patient here with her with a main complaint that she is not able to eat secondary to nausea and abdominal pain. She did have a few episodes of vomiting this morning. She has reported decreased flatulence. She has had an issue with malnutrition and difficulty eating in the past. She has had a steady weight loss over the course of the year. CT scan was obtained today for further evaluation based on her complaint and physical findings of abdominal pain. She was found to have a distal high-grade bowel obstruction. Dr. Nichole has been consulted on and is evaluating patient here in the emergency department. Requested admission to hospitalist so I have spoken to Dr. Smith who will admit. CXR showing hyperinflation. Blood work showing a white count of 14.2. Her lactic is normal. Chemistry nonactionable. UA does not appear infected. Dr. Phillips aware of patient and will place admit orders. NG tube has been ordered at the request of general surgery. Medical Records I reviewed the patient's medical records. Lab Data I reviewed the patient's lab results. 07/15/25 10:03 07/15/25 10:03 Radiology Impressions Abdomen/Pelvis CT 07/15/25 10:08 IMPRESSION: Findings most suggestive of a distal high-grade small bowel obstruction secondary to but could represent an internal hernia in the right pelvis involving the pelvic ileum as above noted with decompressed appearance of the terminal ileum colon further surgical evaluation recommended Findings of hyperinflation and emphysema with atelectasis lower lobes Findings of liver cysts. Myomatous uterus ADDENDUM: 07/15/25 1233 COMMENT: THIS REPORT CONTAINS FINDINGS THAT MAY BE CRITICAL TO PATIENT CARE. The exam findings were verbally communicated by me to AMMON BECKFORD via telephone conference at 12:29 PM FILTER TENDER on 07/15/2025. The findings were acknowledged and understood. For findings are also suggestive of heavy calcification of the origin of the celiac artery and superior mesenteric artery suggesting a component of focal stenoses in this mesenteric branches therefore chronic mesenteric insufficiency should be a diagnosis of consideration. Chest X-Ray 07/15/25 13:38 IMPRESSION: 1. Enteric tube enters the stomach but the tip is not visible. The chest is otherwise unchanged since the most recent exam performed on the same day. Laboratory Results WBC 14.20 10^3/uL (3.29-11.43) H 07/15/25 10:03 RBC 5.50 10^6/uL (3.85-5.65) 07/15/25 10:03 Hgb 16.80 g/dL (11.27-16.99) 07/15/25 10:03 Hct 49.8 % (36-47) H 07/15/25 10:03 MCV 90.5 fl (85-98) 07/15/25 10:03 MCH 30.5 pg (27-33) 07/15/25 10:03 MCHC 33.7 g/dL (30-55) 07/15/25 10:03 RDW 13.9 % (12.1-15.1) 07/15/25 10:03 Plt Count 185 10^3/cmm (157-399) 07/15/25 10:03 MPV 10.4 fL (7.4-10.4) 07/15/25 10:03 Neut % (Auto) 86.5 % 07/15/25 10:03 Lymph % (Auto) 4.9 % 07/15/25 10:03 [place] % (Auto) 7.9 % 07/15/25 10:03 Eos % (Auto) 0.0 % 07/15/25 10:03 Baso % (Auto) 0.2 % 07/15/25 10:03 Neut # (Auto) 12.28 10^3/uL (1.8-7.7) H 07/15/25 10:03 Lymph # (Auto) 0.7 10^3/uL (0.8-4.8) L 07/15/25 10:03 [place] # (Auto) 1.1 10^3/uL (0.2-0.9) H 07/15/25 10:03 Eos # (Auto) 0.0 10^3/uL (0.0-0.8) 07/15/25 10:03 Baso # (Auto) 0.0 10^3/uL (0.0-0.1) 07/15/25 10:03 Nucleated RBC % (auto) 0 % 07/15/25 10:03 Nucleated RBCs # 0.0 /100WBC 07/15/25 10:03 Sodium 130 mmol/L (136-145) L 07/15/25 10:03 Potassium 4.9 mmol/L (3.5-5.1) 07/15/25 10:03 Chloride 90 mmol/L (98-107) L 07/15/25 10:03 Carbon Dioxide 26 mmol/L (22-29) 07/15/25 10:03 Anion Gap 18.9 (5-19) 07/15/25 10:03 BUN 21 mg/dL (8-23) 07/15/25 10:03 Creatinine 0.6 mg/dL (0.5-0.9) 07/15/25 10:03 GFR Calculation Not Reportable 07/15/25 10:03 Glucose 154 mg/dL (65-115) H 07/15/25 10:03 Calculated Osmolality 276 mOsm/kg (285-295) L 07/15/25 10:03 Lactic Acid 1.8 mmol/L (0.5-2.2) 07/15/25 10:03 Calcium 9.9 mg/dL (8.5-10.5) 07/15/25 10:03 Total Bilirubin 0.7 mg/dL (0.15-1.2) 07/15/25 10:03 AST 33 U/L (0-32) H 07/15/25 10:03 ALT 11 U/L (0-33) 07/15/25 10:03 Alkaline Phosphatase 86 U/L (35-105) 07/15/25 10:03 Total Protein 7.9 g/dL (6.6-8.7) 07/15/25 10:03 Albumin 4.1 g/dL (3.5-5.2) 07/15/25 10:03 Globulin 3.8 g/dL (1.3-4.6) 07/15/25 10:03 Lipase 14 U/L (13-60) 07/15/25 10:03 Procalcitonin 0.21 ng/mL (0-0.5) 07/15/25 10:03 Urine Color Yellow (Yellow) 07/15/25 10:49 Urine Appearance Clear (CLEAR) 07/15/25 10:49 Urine pH 7.0 (5-7) 07/15/25 10:49 Ur Specific [place] 1.017 (1.005-1.030) 07/15/25 10:49 Urine Protein 2+ (Negative) A 07/15/25 10:49 Urine Glucose (UA) Trace (Normal) H 07/15/25 10:49 Urine Ketones Trace (Negative) 07/15/25 10:49 Urine Blood Non-haemolysed trace (Negative) 07/15/25 10:49 Urine Nitrate Negative (Negative) 07/15/25 10:49 Urine Bilirubin Negative (Negative) 07/15/25 10:49 Urine Urobilinogen 1.0 mg/dL (Negative) 07/15/25 10:49 Ur Leukocyte Esterase Negative (Negative) 07/15/25 10:49 Urine RBC 0-2 /hpf (0-2) 07/15/25 10:49 Urine WBC 0-5 /hpf (0-5) 07/15/25 10:49 Ur Squamous Epith Cells 0-5 /hpf (0-5) 07/15/25 10:49 Amorphous Sediment Not Reportable 07/15/25 10:49 Urine Bacteria None seen /hpf (NONE) 07/15/25 10:49 Hyaline Casts 2.05 /lpf 07/15/25 10:49 All radiology interpretation(s) finalized by discharge Discharge Plan Discharge Patient Disposition: Admitted As Inpatient Admit Provider: Jennifer Smith Clinical Impression: SBO (small bowel obstruction) Condition: Stable Coding Level of Care Code ED Kick Press Operator for Chg Fwd Documented by User: Rogelio Phillips MD 07/15/25 15:17 HPI - General Adult 2 General: Chief complaint: Back Pain/Injury Stated complaint: NV / low rt abd pain Time Seen by Provider: 07/15/25 09:58 Related Data Home Medications ?Medication ?Instructions ?Recorded ?Confirmed metoprolol tartrate 50 mg tablet 25 mg PO BID PRN high blood 07/15/25 07/15/25 pressure mirtazapine 15 mg tablet 15 mg PO BEDTIME PRN rest/ap petite 07/15/25 07/15/25 Previous Rx's ?Medication ?Instructions ?Recorded amlodipine 5 mg tablet 5 mg PO DAILY high blood pre ssure 10/19/24 #90 tabs diazepam 5 mg tablet 5 mg PO TID PRN sleep 30 day s #90 02/10/25 tabs hydrocodone 5 mg-acetaminophen 325 0.5 tab PO Q6H PRN Moderate Pain 05/17/25 mg tablet 30 days #60 tabs ipratropium bromide 0.02 % 2.5 ml inhalation QID PRN C OPD 05/26/25 solution for inhalation #150 mL ipratropium bromide 17 2 puff inhalation QID #12.9 grams 05/26/25 mcg/actuation HFA aerosol inhaler (Atrovent HFA) tiotropium bromide 18 mcg capsule 1 cap inhalation GENOVEVA LY COPD #120 05/26/25 with inhalation device (Spiriva inhalations with HandiHaler) Allergies Allergy/AdvReac Type Severity Reaction Status Date / Time aspirin Allergy NA Verified 07/15/25 09:27 Penicillins Allergy NA Verified 07/15/25 09:27 Sulfa (Sulfonamide Allergy NA Verified 07/15/25 09:27 Antibiotics) tramadol (From Ultram) Allergy ALGY-Hives Verified 07/15/25 09:27 PFSH ED 2 PFSH: Medical History Right-sided extracranial carotid artery stenosis Anxiety Chronic low back pain Hypertension Family History Father CAD (coronary artery disease) Mother CAD (coronary artery disease) Hypertension Brother CAD (coronary artery disease) Hypertension Grandmother Stroke Denies family history of Diabetes Cancer Social History Smoking and tobacco/nicotine status: current every day tobacco/nicotine user cigarettes Packs smoked per day: 0.5 Years cigarettes smoked: 55 Alcohol intake: never Substance/Drug Use: never Lives independently: Yes Household members: spouse Housing: House Marital status: Number of children: 1 Pets and animals: No Physical Exam 2 Neuro: MONICA COMA SCALE: document GCS findings [place] coma scale total score: 15 Course 2 Vital Signs: Vital signs: Vital Signs Temperature 98.5 F 07/15/25 09:27 Pulse Rate 111 H 07/15/25 12:53 Respiratory Rate 16 07/15/25 09:27 Blood Pressure 152/71 07/15/25 12:53 Pulse Oximetry 92 07/15/25 12:53 Oxygen Delivery Me thod Room Air 07/15/25 12:53 MDM - General Adult Medical Decision Making Patient is a 74-year-old extremely frail and cachectic appearing patient here with her with a main complaint that she is not able to eat secondary to nausea and abdominal pain. She did have a few episodes of vomiting this morning. She has reported decreased flatulence. She has had an issue with malnutrition and difficulty eating in the past. She has had a steady weight loss over the course of the year. CT scan was obtained today for further evaluation based on her complaint and physical findings of abdominal pain. She was found to have a distal high-grade bowel obstruction. Dr. Nichole has been consulted on and is evaluating patient here in the emergency department. Requested admission to hospitalist so I have spoken to Dr. Smith who will admit. CXR showing hyperinflation. Blood work showing a white count of 14.2. Her lactic is normal. Chemistry nonactionable. UA does not appear infected. Dr. Phillips aware of patient and will place admit orders. NG tube has been ordered at the request of general surgery. Saw patient with above midlevel agree with her history and physical will admit this time for small bowel obstruction. Lab Data 07/15/25 10:03 07/15/25 10:03 Radiology Impressions Abdomen/Pelvis CT 07/15/25 10:08 IMPRESSION: Findings most suggestive of a distal high-grade small bowel obstruction secondary to but could represent an internal hernia in the right pelvis involving the pelvic ileum as above noted with decompressed appearance of the terminal ileum colon further surgical evaluation recommended Findings of hyperinflation and emphysema with atelectasis lower lobes Findings of liver cysts. Myomatous uterus ADDENDUM: 07/15/25 1233 COMMENT: THIS REPORT CONTAINS FINDINGS THAT MAY BE CRITICAL TO PATIENT CARE. The exam findings were verbally communicated by me to AMMON BECKFORD via telephone conference at 12:29 PM FILTER TENDER on 07/15/2025. The findings were acknowledged and understood. For findings are also suggestive of heavy calcification of the origin of the celiac artery and superior mesenteric artery suggesting a component of focal stenoses in this mesenteric branches therefore chronic mesenteric insufficiency should be a diagnosis of consideration. Chest X-Ray 07/15/25 13:38 IMPRESSION: 1. Enteric tube enters the stomach but the tip is not visible. The chest is otherwise unchanged since the most recent exam performed on the same day. Laboratory Results WBC 14.20 10^3/uL (3.29-11.43) H 07/15/25 10:03 RBC 5.50 10^6/uL (3.85-5.65) 07/15/25 10:03 Hgb 16.80 g/dL (11.27-16.99) 07/15/25 10:03 Hct 49.8 % (36-47) H 07/15/25 10:03 MCV 90.5 fl (85-98) 07/15/25 10:03 MCH 30.5 pg (27-33) 07/15/25 10:03 MCHC 33.7 g/dL (30-55) 07/15/25 10:03 RDW 13.9 % (12.1-15.1) 07/15/25 10:03 Plt Count 185 10^3/cmm (157-399) 07/15/25 10:03 MPV 10.4 fL (7.4-10.4) 07/15/25 10:03 Neut % (Auto) 86.5 % 07/15/25 10:03 Lymph % (Auto) 4.9 % 07/15/25 10:03 [place] % (Auto) 7.9 % 07/15/25 10:03 Eos % (Auto) 0.0 % 07/15/25 10:03 Baso % (Auto) 0.2 % 07/15/25 10:03 Neut # (Auto) 12.28 10^3/uL (1.8-7.7) H 07/15/25 10:03 Lymph # (Auto) 0.7 10^3/uL (0.8-4.8) L 07/15/25 10:03 [place] # (Auto) 1.1 10^3/uL (0.2-0.9) H 07/15/25 10:03 Eos # (Auto) 0.0 10^3/uL (0.0-0.8) 07/15/25 10:03 Baso # (Auto) 0.0 10^3/uL (0.0-0.1) 07/15/25 10:03 Nucleated RBC % (auto) 0 % 07/15/25 10:03 Nucleated RBCs # 0.0 /100WBC 07/15/25 10:03 Sodium 130 mmol/L (136-145) L 07/15/25 10:03 Potassium 4.9 mmol/L (3.5-5.1) 07/15/25 10:03 Chloride 90 mmol/L (98-107) L 07/15/25 10:03 Carbon Dioxide 26 mmol/L (22-29) 07/15/25 10:03 Anion Gap 18.9 (5-19) 07/15/25 10:03 BUN 21 mg/dL (8-23) 07/15/25 10:03 Creatinine 0.6 mg/dL (0.5-0.9) 07/15/25 10:03 GFR Calculation Not Reportable 07/15/25 10:03 Glucose 154 mg/dL (65-115) H 07/15/25 10:03 Calculated Osmolality 276 mOsm/kg (285-295) L 07/15/25 10:03 Lactic Acid 1.8 mmol/L (0.5-2.2) 07/15/25 10:03 Calcium 9.9 mg/dL (8.5-10.5) 07/15/25 10:03 Total Bilirubin 0.7 mg/dL (0.15-1.2) 07/15/25 10:03 AST 33 U/L (0-32) H 07/15/25 10:03 ALT 11 U/L (0-33) 07/15/25 10:03 Alkaline Phosphatase 86 U/L (35-105) 07/15/25 10:03 Total Protein 7.9 g/dL (6.6-8.7) 07/15/25 10:03 Albumin 4.1 g/dL (3.5-5.2) 07/15/25 10:03 Globulin 3.8 g/dL (1.3-4.6) 07/15/25 10:03 Lipase 14 U/L (13-60) 07/15/25 10:03 Procalcitonin 0.21 ng/mL (0-0.5) 07/15/25 10:03 Urine Color Yellow (Yellow) 07/15/25 10:49 Urine Appearance Clear (CLEAR) 07/15/25 10:49 Urine pH 7.0 (5-7) 07/15/25 10:49 Ur Specific [place] 1.017 (1.005-1.030) 07/15/25 10:49 Urine Protein 2+ (Negative) A 07/15/25 10:49 Urine Glucose (UA) Trace (Normal) H 07/15/25 10:49 Urine Ketones Trace (Negative) 07/15/25 10:49 Urine Blood Non-haemolysed trace (Negative) 07/15/25 10:49 Urine Nitrate Negative (Negative) 07/15/25 10:49 Urine Bilirubin Negative (Negative) 07/15/25 10:49 Urine Urobilinogen 1.0 mg/dL (Negative) 07/15/25 10:49 Ur Leukocyte Esterase Negative (Negative) 07/15/25 10:49 Urine RBC 0-2 /hpf (0-2) 07/15/25 10:49 Urine WBC 0-5 /hpf (0-5) 07/15/25 10:49 Ur Squamous Epith Cells 0-5 /hpf (0-5) 07/15/25 10:49 Amorphous Sediment Not Reportable 07/15/25 10:49 Urine Bacteria None seen /hpf (NONE) 07/15/25 10:49 Hyaline Casts 2.05 /lpf 07/15/25 10:49 Discharge Plan Discharge Patient Disposition: Admitted As Inpatient Admit Provider: Jennifer Smith Clinical Impression: SBO (small bowel obstruction) Condition: Stable Coding Level of Care Code ED Kick Press Operator for Hong Gupta
[2025-07-15 10:13] LABS: Hematocrit 49.8 % (36-47); Hemoglobin 16.80 g/dL (11.27-16.99); Mean Corpuscular HGB Conc 33.7 g/dL (30-55); Mean Corpuscular Hemoglobin 30.5 pg (27-33); Mean Corpuscular Volume 90.5 fl (85-98); Nucleated Red Blood Cells % 0 %; Platelet Count 185 10^3/cmm (157-399); Red Blood Count 5.50 10^6/uL (3.85-5.65); White Blood Count 14.20 10^3/uL (3.29-11.43)
--- NOTE | 2025-07-15 10:35 | ECG_ITS ---
[employer] Test Date: 2025-07-15 Pat Name: Lyndsay Jerome Department: Room: Gender: Female Piano Case Maker: : 1950 Requested By: Francie Retana Order Number: [id number] Rosenbaum MD: Fanny Angel M.D. Measurements Intervals [place] Rate: 106 P: 84 AR: 128 QRS: 261 QRSD: 119 T: 78 QT: 330 QTc: 439 Interpretive Statements SINUS TACHYCARDIA POSSIBLE RIGHT ATRIAL ENLARGEMENT [0.25mV P-WAVE] LEFT ATRIAL ENLARGEMENT [-0.15mV P-WAVE IN V1/V2] INDETERMINATE AXIS RIGHT BUNDLE BRANCH BLOCK [120+ ms QRS DURATION, UPRIGHT V1, 40+ ms S IN I/aVL/V4/V5/V6] LEFT POSTERIOR FASCICULAR BLOCK [QRS AXIS > 109, INFERIOR Q] POSSIBLE ANTERIOR MYOCARDIAL INFARCTION , OF INDETERMINATE AGE [30 ms Q WAVE IN V3/V4, OR R < 0.2 mV IN V4].Compared to ECG 08/26/2024 14:41:51 Left posterior fascicular block now present. Myocardial infarct finding now present. Sinus rhythm no longer present Electronically Signed On 07-15-2025 18:49:34 CLEAN ROOM ASSEMBLER by Fanny Angel M.D. [email or web address]
[2025-07-15 10:36] LABS: Lactic Sepsis W/Reflex 1.8 mmol/L (0.5-2.2)
[2025-07-15 10:47] LABS: Procalcitonin 0.21 ng/mL (0-0.5)
[2025-07-15 10:55] LABS: Glucose Urine UA Trace (Normal); Nitrate Urine Negative (Negative); Specific Gravity, Urine 1.017 (1.005-1.030)
[2025-07-15 10:57] LABS: Add Urine Microscopic? YES
[2025-07-15 10:58] LABS: Alanine Aminotransferase 11 U/L (0-33); Albumin Level 4.1 g/dL (3.5-5.2); Alkaline Phosphatase 86 U/L (35-105); Anion Gap 18.9 (5-19); Aspartate Amino Transferase 33 U/L (0-32); Blood Urea Nitrogen 21 mg/dL (8-23); Calcium 9.9 mg/dL (8.5-10.5); Carbon Dioxide 26 mmol/L (22-29); Chloride 90 mmol/L (98-107); Globulin 3.8 g/dL (1.3-4.6); Glucose 154 mg/dL (65-115); Lipase 14 U/L (13-60); Osmolality Calculated 276 mOsm/kg (285-295); Potassium 4.9 mmol/L (3.5-5.1); Sodium 130 mmol/L (136-145); Total Protein 7.9 g/dL (6.6-8.7)
[2025-07-15] MEDS: iohexol 350 mg/mL 500 mL Btl (per mL) IV (11:15)
--- NOTE | 2025-07-15 13:37 | P.CONIM_ITS ---
Providers/Reason For Consult 2 Consulting Physician/Specialty*: General Surgery Reason for Consult*: Small bowel obstruction Primary Care Provider: Jelly Stringer MD History of Present Illness History of Present Illness Lyndsay Jerome is a 74 year old female who presented to the hospital with abdominal pain nausea and vomiting for the last week. Has continued to have small bowel movements, she has been losing weight over the last 3 to 6 months. Has history of COPD, hypertension, chronic low back pain and she does take opiates for this. CT scan in the ER showed evidence of a possible high-grade SBO with a transition point distal ileum and the possibility of a internal hernia at the level of the pelvis. Review of Systems 2 General: Reports: 10 or more systems reviewed and unremarkable except in HPI and below Medications/Allergies Home Medications ?Medication ?Instructions ?Recorded ?Confirmed ?Last Taken ?Type amlodipine 5 mg tablet 5 mg PO DAILY high blood pre ssure 10/19/24 07/15/25 07/14/25 Rx #90 tabs diazepam 5 mg tablet 5 mg PO TID PRN sleep 30 day s #90 02/10/25 07/15/25 Unknown Rx tabs hydrocodone 5 mg-acetaminophen 325 0.5 tab PO Q6H PRN Moderate Pain 05/17/25 07/15/25 Unknown Rx mg tablet 30 days #60 tabs ipratropium bromide 0.02 % 2.5 ml inhalation QID PRN C OPD 05/26/25 07/15/25 Unknown Rx solution for inhalation #150 mL ipratropium bromide 17 2 puff inhalation QID #12.9 grams 05/26/25 07/15/25 Unknown Rx mcg/actuation HFA aerosol inhaler (Atrovent HFA) tiotropium bromide 18 mcg capsule 1 cap inhalation GENOVEVA LY COPD #120 05/26/25 07/15/25 Unknown Rx with inhalation device (Spiriva inhalations with HandiHaler) metoprolol tartrate 50 mg tablet 25 mg PO BID PRN high blood 07/15/25 07/15/25 Unknown History pressure mirtazapine 15 mg tablet 15 mg PO BEDTIME PRN rest/ap petite 07/15/25 07/15/25 Unknown History Allergies Allergy/AdvReac Type Severity Reaction Status Date / Time aspirin Allergy NA Verified 07/15/25 09:27 Penicillins Allergy NA Verified 07/15/25 09:27 Sulfa (Sulfonamide Allergy NA Verified 07/15/25 09:27 Antibiotics) tramadol (From Ultram) Allergy ALGY-Hives Verified 07/15/25 09:27 PFSH Acute 2 PFSH: Medical History (Updated 07/15/25 @ 13:38 by SOURAV Jimenez) Right-sided extracranial carotid artery stenosis Anxiety Chronic low back pain Hypertension Family History Father CAD (coronary artery disease) Mother CAD (coronary artery disease) Hypertension Brother CAD (coronary artery disease) Hypertension Grandmother Stroke Denies family history of Diabetes Cancer Social History Smoking and tobacco/nicotine status: current every day tobacco/nicotine user cigarettes Packs smoked per day: 0.5 Years cigarettes smoked: 55 Alcohol intake: never Substance/Drug Use: never Lives independently: Yes Household members: spouse Housing: House Marital status: Number of children: 1 Pets and animals: No Vitals/I&O/Wt Last Vital Signs Temp 98.5 F 07/15/25 09:27 Pulse 111 H 07/15/25 12:53 Resp 16 07/15/25 09:27 BP 152/71 07/15/25 12:53 Pulse Ox 92 07/15/25 12:53 O2 Del Method Room Air 07/15/25 12:53 07/14/25 07/15/25 07/15/25 22:59 06:59 14:59 Intake Total 0 / 0 Balance 0 / 0 Weight last 48 hrs Weight 62 lb Physical Exam 2 Narrative: Abdominal exam is benign abdomen soft very mildly distended minimally tender especially in the lower abdomen Data 07/15/25 10:03 07/15/25 10:03 A&P Assessment and plan 1. SBO (small bowel obstruction): Plan: After complete history, physical examination and review of all available clinical data the following is my assessment. Patient has had evidence of SBO. Per my personal interpretation of the imaging I do not see any significant amount of decompressed bowel in the pelvis the small bowel to me looks almost globally dilated, and NG tube was placed at the bedside obtaining some bilious output and undigested food. Her vitals are stable except for mild tachycardia that has resolved by the time of my evaluation. She does have a white count of 14 but a normal lactate level. With this findings I think we should start with conservative management of SBO, we will proceed with NG tube decompression. After 24 to 48 hours of NG tube decompression I will plan to do a Gastrografin trial to see if there is any evidence of small bowel obstruction depending on the results we will decide if the patient is in need of surgery. Will continue to monitor white count continue to monitor the lactate will replace electrolytes as needed and proceed with antibiotic therapy for prophylaxis of bacterial translocation. Patient shows understanding agrees with plan PDMP PDMP Reviewed: Not Reviewed Coding Level of Care Code Acute Code for Chg Fwd Diagnoses SBO (small bowel obstruction) K56.609
--- NOTE | 2025-07-15 13:38 | XR_ITS ---
WS: [id number] Exam: XR chest 1V portable [id number] Date/Time of Exam: 07/15/2025 1:38 PM Reason For Exam: ng placement Comparison with the latest exam on the same day at 10:53 a.m. An enteric tube has been placed and enters the stomach but the tip is not visible. The lungs are hyperinflated and clear. Normal cardiomediastinal silhouette. Bony structures are intact. Radiographic contrast seen in the kidneys. XR/XR chest 1V portable [id number] IMPRESSION: 1. Enteric tube enters the stomach but the tip is not visible. The chest is oth erwise unchanged since the most recent exam performed on the same day.
--- NOTE | 2025-07-15 14:41 | P.HP_ITS ---
Providers/Chief Complaint 2 Admitting Physician: Jennifer Smith MD Primary Care Provider: Jelly Stringer MD Chief Complaint: NV / low rt abd pain History of Present Illness Lyndsay Jerome is a 74 year old female with PMH of HTN, carotid artery disease, CVA, COPD, current tobacco use and chronic pain. Patient presented to the ED on 07/15/2025 with a 3-4 day history of progressive abdominal pain, nausea and vomiting (x3 episodes). Abdominal discomfort localized to right aspect of the abdomen. Last BM 2 days ago. Unable to account for flatus. Denies prior history of bowel obstruction or inflammatory bowel disease. Abdominal surgeries included appendectomy. Denies fever, chills, chest pain, shortness of breath, hematemesis, rectal bleeding and dysuria. ED records / work-up reviewed Labs, 07/15/2025 1003 Infection/Inflammation LA 1.8 PCT 0.21 Hemogram WBC 14.2 RBC 5.50 PLT 185 HGB 16.8 HCT 49.8 Chemistry Na 130 K 4.9 Cl 90 Ca 9.9 Glu 154 CO2 26 AG 18.9 BUN 21 Cr 0.6 Liver AST 33 ALT 11 ALP 86 T.Bili 0.7 Alb 4.1 T.Protein 7.9 Pancreas Lipase 14 Urinalysis SG 1.017 protein (2+) glucose (trace) EKG: ST (v-rate 106). QTc 439. CXR, 07/15/25 1020, marked pulmonary hyperinflation. CXR, 07/15/25 1338, enteric tube enters the stomach but the tip is not visible. The chest is otherwise unchanged since the most recent exam performed on the same day. Review of Systems 2 General: Reports: 10 or more systems reviewed and unremarkable except in HPI and below Medications/Allergies Home Medications ?Medication ?Instructions ?Recorded ?Confirmed ?Last Taken ?Type amlodipine 5 mg tablet 5 mg PO DAILY high blood pre ssure 10/19/24 07/15/25 07/14/25 Rx #90 tabs diazepam 5 mg tablet 5 mg PO TID PRN sleep 30 day s #90 02/10/25 07/15/25 Unknown Rx tabs hydrocodone 5 mg-acetaminophen 325 0.5 tab PO Q6H PRN Moderate Pain 05/17/25 07/15/25 Unknown Rx mg tablet 30 days #60 tabs ipratropium bromide 0.02 % 2.5 ml inhalation QID PRN C OPD 05/26/25 07/15/25 Unknown Rx solution for inhalation #150 mL ipratropium bromide 17 2 puff inhalation QID #12.9 grams 05/26/25 07/15/25 Unknown Rx mcg/actuation HFA aerosol inhaler (Atrovent HFA) tiotropium bromide 18 mcg capsule 1 cap inhalation GENOVEVA LY COPD #120 05/26/25 07/15/25 Unknown Rx with inhalation device (Spiriva inhalations with HandiHaler) metoprolol tartrate 50 mg tablet 25 mg PO BID PRN high blood 07/15/25 07/15/25 Unknown History pressure mirtazapine 15 mg tablet 15 mg PO BEDTIME PRN rest/ap petite 07/15/25 07/15/25 Unknown History bisacodyl 5 mg tablet,delayed 5 - 10 mg (1 - 2 x 5 mg) PO BID 07/18/25 Unknown Rx release (Dulcolax (bisacodyl)) PRN constipation #30 ta bs Allergies Allergy/AdvReac Type Severity Reaction Status Date / Time aspirin Allergy NA Verified 07/15/25 09:27 Penicillins Allergy NA Verified 07/15/25 09:27 Sulfa (Sulfonamide Allergy NA Verified 07/15/25 09:27 Antibiotics) tramadol (From Ultram) Allergy ALGY-Hives Verified 07/15/25 09:27 PFSH Acute 2 PFSH: Medical History Right-sided extracranial carotid artery stenosis Anxiety Chronic low back pain Hypertension Family History Father CAD (coronary artery disease) Mother CAD (coronary artery disease) Hypertension Brother CAD (coronary artery disease) Hypertension Grandmother Stroke Denies family history of Diabetes Cancer Social History Smoking and tobacco/nicotine status: current every day tobacco/nicotine user cigarettes Packs smoked per day: 0.5 Years cigarettes smoked: 55 Alcohol intake: never Substance/Drug Use: never Lives independently: Yes Household members: spouse Housing: House Marital status: Number of children: 1 Pets and animals: No Vitals/I&O/Wt Last Vital Signs Temp 98.5 F 07/15/25 09:27 Pulse 111 H 07/15/25 12:53 Resp 16 07/15/25 09:27 BP 152/71 07/15/25 12:53 Pulse Ox 92 07/15/25 12:53 O2 Del Method Room Air 07/15/25 12:53 07/14/25 07/15/25 07/15/25 22:59 06:59 14:59 Intake Total 0 / 0 Balance 0 / 0 Weight last 48 hrs Weight 28.123 kg Physical Exam 2 Narrative: Constitutional: NAD Neurorogic: Awake and alert. Oriented x3. No facial asymmetry, unilateral weakness or speech deficits. Head NC/AT Eyes PERRLA. EOMI. Sclera anicteric. ENT Normal external ears. Hearing intact to normal voice. Normal external nose. No epistaxis. MMM. Respiratory CTAB. No accessory muscle use. On room air. Heart / CV Regular. No murmur. Extremities No edema bilaterally Abdomen / GI Soft. NT. ND. +BS Genitourinary No swanson catheter Musculoskeletal Skin: Data 07/18/25 03:27 07/18/25 03:27 A&P Assessment and plan 1. SBO (small bowel obstruction): 2. Hyponatremia: Plan: # SBO - general surgery consulted in ED (evaluated patient) no surgical intervention at this time We should start with conservative management of SBO, we will proceed with NG tube decompression. After 24 to 48 hours of NG tube decompression I will plan to do a Gastrografin trial to see if there is any evidence of small bowel obstruction depending on the results we will decide if the patient is in need of surgery. - Keep NPO - NGT to LIS - General surgery recommends abx ppx of bacterial translocation will start on ceftriaxone and metronidazole - mIVF NS at 75 - Trend and correct electrolyte abnormalites accordingly - Pain control with IV analgesia sparingly - Anti-emetics # leukocytosis # hyponatremia # COPD # Tobacco dependence with current use Currently smokes 1/2 PPD or less - declined nicotine patch VTE PPx: SCDs, Lovenox PDMP PDMP Reviewed: Not Reviewed Attestations 2 Medical Necessity Statement*: Patient admitted under observation status. Patient will require less than two midnights to manage SBO Coding Level of Care Code 51449 Diagnoses SBO (small bowel obstruction) K56.609 Hyponatremia E87.1
[2025-07-15] MEDS: metroNIDAZOLE IV 500 MG/100 ML PREMIX 100 MG IV ×2 (17:04→23:42)
[2025-07-15] MEDS: cefTRIAXone 1,000 mg SDV 1000 MG IVP (17:04)
--- NOTE | 2025-07-15 17:06 | XRR_ITS ---
PROCEDURE INFORMATION: Exam: XR Abdomen Exam date and time: 07/15/2025 6:33 PM Age: 74 years old Clinical indication: Device placement; Gi device; Nasogastric tube; Additional info: Can be portable for ng position TECHNIQUE: Imaging protocol: Radiologic exam of the abdomen. Views: Frontal supine view of the abdomen. 1 View. Total images: 3 COMPARISON: 1. CT abdomen pelvis w con* [id number] 07/15/2025 11:12 AM 2. CR XR chest 1V portable [id number] 07/15/2025 1:50 PM 3. CR XR chest 1V portable [id number] 07/15/2025 10:50 AM 4. CR XR chest 2V* [id number] 05/26/2025 11:39 AM FINDINGS: Tubes, catheters and devices: Enteric tube projects over the stomach, the intended location. Heart/Mediastinum: Normal heart size. Lungs: Marked hyperaerated-hyperlucent lungs suggesting generalized emphysema. Pleural spaces: No pathologic pleural thickening, significant pleural effusion or pneumothorax. Gastrointestinal tract: No pathologic bowel distension or bowel wall thickening. Vasculature: Vascular structures demonstrate atherosclerosis. Bones/joints: Moderate generalized degenerative changes of the vertebral column, including multilevel osteophytes, degenerative disc height loss, and facet arthrosis, consistent with patient age. Qualitative demineralization of bones (osteopenia) limiting evaluation for nondisplaced fractures. Soft tissues: Soft tissues are normal as visualized, demonstrating no masses or swelling/induration. XR/XR abdomen 1V* [id number] IMPRESSION: 1. Enteric tube projects over the stomach, the intended location. No adjustment recommended. 2. Moderate age-appropriate degenerative spinal changes. Other chronic/non-acute findings as described above. COMMENTS: Qualitative demineralization of bones (osteopenia) limiting evaluation for nondisplaced fractures.
[2025-07-16] VITALS (7 sets, daily range): BP systolic 101–179; BP diastolic 58–75; PULSE 77–97; RESP 13–16; TEMP 36.8–37.4; O2SAT 91–95
--- NOTE | 2025-07-16 00:01 | XRR_ITS ---
PROCEDURE INFORMATION: Exam: XR Chest Exam date and time: 07/16/2025 1:24 AM Age: 74 years old Clinical indication: Device placement; Ng tube; Check S/P ng placement; Additional info: Ng tube placement TECHNIQUE: Imaging protocol: Radiologic exam of the chest. Views: 1 view. COMPARISON: CR XR chest 1V portable [id number] 07/15/2025 1:50 PM FINDINGS: Tubes, catheters and devices: Enteric feeding tube terminates in the stomach. Lungs: Emphysema with hyperinflation, concerning for COPD. Pleural spaces: Unremarkable. No pleural effusion. No pneumothorax. Heart/Mediastinum: Unremarkable. No cardiomegaly. Bones/joints: Unremarkable. XR/XR chest 1V portable [id number] IMPRESSION: 1. Emphysema with hyperinflation, concerning for COPD. 2. Enteric feeding tube terminates in the stomach.
[2025-07-16] MEDS: morphine 4 mg/mL SDV 1 mL 2 MG IVP (00:34)
[2025-07-16] MEDS: acetaminophen 1,000 MG/100 ML PIGGYBACK 400 MG IV ×3 (01:20→16:28)
[2025-07-16 04:22] LABS: Hematocrit 38.7 % (36-47); Hemoglobin 13.10 g/dL (11.27-16.99); Mean Corpuscular HGB Conc 33.9 g/dL (30-55); Mean Corpuscular Hemoglobin 30.8 pg (27-33); Mean Corpuscular Volume 91.1 fl (85-98); Nucleated Red Blood Cells % 0 %; Platelet Count 176 10^3/cmm (157-399); Red Blood Count 4.25 10^6/uL (3.85-5.65); White Blood Count 9.93 10^3/uL (3.29-11.43)
[2025-07-16 04:43] LABS: Anion Gap 14.5 (5-19); Blood Urea Nitrogen 15 mg/dL (8-23); Calcium 7.9 mg/dL (8.5-10.5); Carbon Dioxide 25 mmol/L (22-29); Chloride 95 mmol/L (98-107); Glucose 92 mg/dL (65-115); Lactate (Lactic Acid level) 0.7 mmol/L (0.5-2.2); Magnesium 1.6 mg/dL (1.7-2.3); Osmolality Calculated 272 mOsm/kg (285-295); Potassium 3.5 mmol/L (3.5-5.1); Sodium 131 mmol/L (136-145)
[2025-07-16] MEDS: metroNIDAZOLE IV 500 MG/100 ML PREMIX 100 MG IV ×2 (07:47→16:28)
--- NOTE | 2025-07-16 09:23 | P.PN_ITS ---
Subjective 2 Subjective: Patient doing better this morning, output from the NG tube still looks like intestinal effluent although the effluent has been low. Abdominal pain has improved she says she passed some gas this morning. Vitals/I&O/Wt Last Vital Signs Temp 98.3 F 07/16/25 08:00 Pulse 88 07/16/25 08:28 Resp 14 07/16/25 08:28 BP 116/68 07/16/25 08:00 Pulse Ox 92 07/16/25 08:28 O2 Del Method Room Air 07/16/25 08:28 O2 Flow Rate 2 07/16/25 04:00 07/15/25 07/16/25 07/16/25 22:59 06:59 14:59 Intake Total 600 / 600 1365 / 1965 200.000 / 200.000 Output Total 850 / 850 300 / 1150 Balance -250 / -250 1065 / 815 200.000 / 200.000 Weight last 48 hrs Weight 63 lb Weight 63 lb Weight 62 lb Physical Exam 2 Narrative: Abdominal exam is benign the abdomen is soft mildly tender to palpation there is bowel sounds Data 07/16/25 03:55 07/16/25 03:55 A&P Assessment and plan 1. SBO (small bowel obstruction): Plan: Patient appears to be improving with conservative management of small bowel obstruction, we will continue decompression for additional 24 hours and I will plan to do a Gastrografin trial tomorrow morning to evaluate for GI patency. Patient shows understanding and agrees with the plan. She is cleared to ambulate if the patient wants to ambulate the tube can be disconnected from the wall while she is walking PDMP PDMP Reviewed: Not Reviewed Attestations 2 Medical Necessity Statement*: Per medical team Coding Level of Care Code Acute Code for Chg Fwd Diagnoses SBO (small bowel obstruction) K56.609
--- NOTE | 2025-07-16 09:56 | P.PN_ITS ---
Subjective 2 Subjective: Patient is seen this morning on the medical floor. She is a 74-year-old female who presented to the ER yesterday with complaint of nausea and vomiting. Found to have SBO, NG tube was placed, with intermittent suctioning. Upon seeing her this morning, she reports feeling fairly better. She denies any more vomiting, and reports passing gas. She is looking forward to the NG tube removed, so that she could be sent home. Otherwise, she denies any new complaints. General surgery is currently following, and expertly directing care. Vitals/I&O/Wt Last Vital Signs Temp 98.3 F 07/16/25 08:00 Pulse 88 07/16/25 08:28 Resp 14 07/16/25 08:28 BP 116/68 07/16/25 08:00 Pulse Ox 92 07/16/25 08:28 O2 Del Method Room Air 07/16/25 08:28 O2 Flow Rate 2 07/16/25 04:00 07/15/25 07/16/25 07/16/25 22:59 06:59 14:59 Intake Total 600 / 600 1365 / 1965 526.250 / 526.250 Output Total 850 / 850 300 / 1150 Balance -250 / -250 1065 / 815 526.250 / 526.250 Weight last 48 hrs Weight 28.576 kg Weight 28.576 kg Weight 28.123 kg Physical Exam 2 Narrative: General: Very skinny patient lying quietly in bed. Awake and alert. Cooperative. NG tube in place. Chest/Resp: Normal respiratory chest movts; no obvious respiratory distress. CVS: Regular heart rate and rhythm. GI: Non-distended; No obvious organomegaly. Extremities: No obvious pitting pedal edema. Skin: Moderately dry mucous membrane. No obvious new rashes or new skin lesions. Data 07/16/25 03:55 07/16/25 03:55 CXR: Radiologist's impression: IMPRESSION: 1. Emphysema with hyperinflation, concerning for COPD. 2. Enteric feeding tube terminates in the stomach. A&P Assessment and plan 1. SBO (small bowel obstruction): 2. Dehydration determined by examination: 3. Body mass index (BMI) less than 19 in adult: 4. Emphysema of lung: Plan: Currently stable patient. Given apparent dehydration, I will increase the IV fluid rate from 75 cc/h w/ normal saline to 80 cc/h at this time. Continue ongoing intermittent suctioning with NG tube. Otherwise, defer to the general surgeon for continued expert advice. Further plans to be adjusted as clinical picture evolves. Treat concomitant symptoms empirically. PDMP PDMP Reviewed: Not Reviewed Attestations 2 Medical Necessity Statement*: Patient admitted for apparent severe clinical condition, as outlined in the Assessment & Plan section above. Patient will need up to 2 midnight stay, estimated, at least, to adequately and appropriately treat and optimally control above-named clinical conditions,. Coding Level of Care Code Acute Code for Chg Fwd Diagnoses SBO (small bowel obstruction) K56.609 Dehydration determined by examination E86.0 Body mass index (BMI) less than 19 in adult Z68.1 Emphysema of lung J43.9
--- NOTE | 2025-07-16 12:22 | PC.CHAP ---
Pastoral Care Encounter/Spiritual Assessment Type of Contact [] Declined online merchandising coordinator visit [] Patient/Family/Request visit [] Outpatient visit [] Follow-up visit [] Physician referral [] Code/Alert [] Routine visit [] Staff referral [] Actively dying [x] Patient sleeping [] Family support [] [] Out of room [] Palliative care [] [] Receiving care in room [] Pre-surgical visit [] Trauma [] Long length of stay [] ICU visit [] Other: Relational/Emotional Strength [] Patient feels connected with others/family/visitors/staff [] Distress [] Loneliness/isolation [] Abandonment Spirituality of Patient [] Person of Shereen [] Attends Catholic of their Shereen [] Believes in Prayer [] Reads Bible or Rastafarian materials [] There are Spiritual issues to be addressed Warehouse Consultant Interventions [] Prayer [] Active listening [] Non-anxious presence [] Spiritual/emotional support [] Crisis/trauma care [] Spiritual counseling [] Bereavement support [] Provided bereavement packet [] Provided Bible/devotional materials [] Provided toy/stuffed animal, coloring book to patient or family member [] Provided Communion [] Anointing/[place] [] Salvation [] Completed spiritual assessment [] Other: Impact on Illness or Injury [] Angry [] Fearful [] Anxious [] Often cries [] Exhaustion [] Unable to work [] Unable to attend jewish [] Unable to walk/stand [] Unable to read [] Unable to drive [] Unable to eat/drink [] Unable to sleep [] Unable to be with family [] Patient intubated [] Other: Summary Time spent with patient
[2025-07-16] MEDS: ondansetron 2 mg/ML SDV 2 mL 4 MG IVP (13:29)
[2025-07-16] MEDS: cefTRIAXone 1,000 mg SDV 1000 MG IVP (16:26)
[2025-07-17] VITALS (7 sets, daily range): BP systolic 117–148; BP diastolic 57–71; PULSE 76–93; RESP 14–17; TEMP 36.4–36.9; O2SAT 90–99; BMI 11.5
[2025-07-17] MEDS: metroNIDAZOLE IV 500 MG/100 ML PREMIX 100 MG IV ×3 (00:40→16:13)
[2025-07-17 08:38] LABS: Hematocrit 40.5 % (36-47); Hemoglobin 12.90 g/dL (11.27-16.99); Mean Corpuscular HGB Conc 31.9 g/dL (30-55); Mean Corpuscular Hemoglobin 30.6 pg (27-33); Mean Corpuscular Volume 96.0 fl (85-98); Nucleated Red Blood Cells % 0 %; Platelet Count 214 10^3/cmm (157-399); Red Blood Count 4.22 10^6/uL (3.85-5.65); White Blood Count 10.80 10^3/uL (3.29-11.43)
--- NOTE | 2025-07-17 08:46 | P.PN_ITS ---
Subjective 2 Subjective: Patient doing well this morning, has passed some gas abdominal pain is improving. Otherwise stable Vitals/I&O/Wt Last Vital Signs Temp 97.6 F 07/17/25 07:31 Pulse 80 07/17/25 08:08 Resp 16 07/17/25 08:08 BP 117/62 07/17/25 07:31 Pulse Ox 92 07/17/25 08:08 O2 Del Method Nasal Cannula 07/17/25 08:08 O2 Flow Rate 2 07/17/25 08:36 07/16/25 07/17/25 07/17/25 22:59 06:59 14:59 Intake Total 852.000 / 1378.250 100 / 1478.250 998.667 / 998.667 Output Total Balance 852.000 / 1378.250 99 / 1477.250 998.667 / 998.667 Weight last 48 hrs Weight 63 lb Weight 63 lb Weight 63 lb Weight 62 lb Physical Exam 2 Narrative: Abdomen is soft nontender nondistended there is decreased bowel sounds. Data 07/17/25 08:29 07/16/25 03:55 A&P Assessment and plan 1. SBO (small bowel obstruction): Plan: Patient showing adequate progression, labs are unremarkable. I have administered Gastrografin this morning at 8 AM we will obtain follow-up x-rays at noon and at 6 PM. Depending on patient progression we might be able to remove the NG tube and allow her to eat Gastrografin trial is negative we will have to discuss the possibility of surgery PDMP PDMP Reviewed: Not Reviewed Attestations 2 Medical Necessity Statement*: Per medical team Coding Level of Care Code Acute Code for Chg Fwd Diagnoses SBO (small bowel obstruction) K56.609
[2025-07-17 08:59] LABS: Anion Gap 21.7 (5-19); Blood Urea Nitrogen 20 mg/dL (8-23); Calcium 8.1 mg/dL (8.5-10.5); Carbon Dioxide 17 mmol/L (22-29); Chloride 102 mmol/L (98-107); Osmolality Calculated 283 mOsm/kg (285-295); Potassium 3.7 mmol/L (3.5-5.1); Sodium 137 mmol/L (136-145)
[2025-07-17 09:23] LABS: Glucose 39 mg/dL (65-115)
--- NOTE | 2025-07-17 10:19 | P.PN_ITS ---
Subjective 2 Subjective: Patient seen again this morning in the company of the daughter. The nurse reports that she had an episode of hypoglycemia, therefore getting some dextrose infusion. She complains of nothing new. General surgery is giving patient some Gastrografin, after which a plain abdominal x-ray is planned. NG tube is still in place, and barely producing any aspirates. Vitals/I&O/Wt Last Vital Signs Temp 97.6 F 07/17/25 07:31 Pulse 80 07/17/25 08:08 Resp 16 07/17/25 08:08 BP 117/62 07/17/25 07:31 Pulse Ox 92 07/17/25 08:08 O2 Del Method Nasal Cannula 07/17/25 08:08 O2 Flow Rate 2 07/17/25 08:36 07/16/25 07/17/25 07/17/25 22:59 06:59 14:59 Intake Total 852.000 / 1378.250 100 / 3895.946 3032.334 / 1181.334 Output Total Balance 852.000 / 1378.250 99 / 1605.926 4229.334 / 1181.334 Weight last 48 hrs Weight 28.576 kg Weight 28.576 kg Weight 28.576 kg Physical Exam 2 Narrative: General: Awake and alert. NG tube in place. Chest/Resp: Normal respiratory chest movts; no obvious respiratory distress. CVS: Regular heart rate and rhythm. GI: Non-distended; No obvious organomegaly. Extremities: No obvious pitting pedal edema. Skin: No obvious new rashes or new skin lesions. Data 07/17/25 08:29 07/17/25 08:29 A&P Assessment and plan 1. SBO (small bowel obstruction): 2. Hypoglycemia: 3. Dehydration determined by examination: 4. Body mass index (BMI) less than 19 in adult: 5. Hyperlipidemia: 6. Emphysema of lung: Plan: Currently stable patient. For the hyperglycemia, change the IV fluid from normal saline to D5 and half saline +20 mEq of KCl. Continue other ongoing treatment plans. Awaiting further advice from the general surgeon regarding the SBO. Anticipate discharge tomorrow. PDMP PDMP Reviewed: Not Reviewed Attestations 2 Medical Necessity Statement*: Patient admitted for apparent severe clinical condition, as outlined in the Assessment & Plan section above. Patient will need up to 1 more midnight stay, estimated, at least, to adequately and appropriately treat and optimally control above-named clinical conditions,. Coding Level of Care Code Acute Code for Chg Fwd Diagnoses SBO (small bowel obstruction) K56.609 Hypoglycemia E16.2 Dehydration determined by examination E86.0 Body mass index (BMI) less than 19 in adult Z68.1 Hyperlipidemia E78.5 Emphysema of lung J43.9
--- NOTE | 2025-07-17 11:34 | XRR_ITS ---
PROCEDURE INFORMATION: Exam: XR Abdomen Exam date and time: 07/17/2025 12:36 PM Age: 74 years old Clinical indication: Abdominal tenderness and bloating and nausea; Additional info: Sbo; Follow up gastrograffin trial; 4hr film; 120ml gastrograffin administered through ng tube @ [address] Nichole TECHNIQUE: Imaging protocol: Radiologic exam of the abdomen. Views: Frontal supine view of the abdomen. 1 View. COMPARISON: CR (ABDOMEN, ) 07/15/2025 6:33 PM FINDINGS: Tubes, catheters and devices: Enteric feeding tube is identified with side port above the gastroesophageal junction and may require advancement. Gastrointestinal tract: Contrast is seen throughout the large bowel loops. Bones/joints: Degenerative changes of the visualized spine. XR/XR KUB portable [id number] IMPRESSION: As above.
[2025-07-17] MEDS: D5-NS 0.45% + KCL 20 mEq 20 MEQ/1,000 ML BAG 75 MEQ IV (12:38)
--- NOTE | 2025-07-17 14:36 | PM.MISC ---
Miscellaneous Note Purpose of Documentation: Update on patient care Note: I evaluated the patient at the bedside today, she has had bowel movements doing okay no significant abdominal pain no distention. We did a x-ray of the abdomen 4 hours after Gastrografin administration and the Gastrografin was in the colon no evidence of actual bowel obstruction. NG tube has been removed patient will be allowed to have clears will advance to full liquid diet and then to GI soft tomorrow morning. I have explained to the patient that would like her to be on a once a day MiraLAX in the long-term and to continue on a GI soft diet once she leaves the hospital. She shows understanding agrees with plan
[2025-07-17] MEDS: cefTRIAXone 1,000 mg SDV 1000 MG IVP (16:12)
[2025-07-18] VITALS (7 sets, daily range): BP systolic 135–151; BP diastolic 66–80; PULSE 82–101; RESP 15–17; TEMP 36.4–37.1; O2SAT 90–94; BMI 12.9
[2025-07-18] MEDS: D5-NS 0.45% + KCL 20 mEq 20 MEQ/1,000 ML BAG 75 MEQ IV (00:04)
[2025-07-18 03:57] LABS: Hematocrit 38.8 % (36-47); Hemoglobin 12.90 g/dL (11.27-16.99); Mean Corpuscular HGB Conc 33.2 g/dL (30-55); Mean Corpuscular Hemoglobin 30.6 pg (27-33); Mean Corpuscular Volume 91.9 fl (85-98); Nucleated Red Blood Cells % 0 %; Platelet Count 200 10^3/cmm (157-399); Red Blood Count 4.22 10^6/uL (3.85-5.65); White Blood Count 10.63 10^3/uL (3.29-11.43)
[2025-07-18 04:20] LABS: Anion Gap 10.7 (5-19); Blood Urea Nitrogen 8 mg/dL (8-23); Calcium 7.7 mg/dL (8.5-10.5); Carbon Dioxide 25 mmol/L (22-29); Chloride 104 mmol/L (98-107); Glucose 124 mg/dL (65-115); Osmolality Calculated 284 mOsm/kg (285-295); Sodium 137 mmol/L (136-145)
[2025-07-18] MEDS: polyethylene glycol 3350 Pkt 17 gm PO (04:22)
[2025-07-18 04:28] LABS: Potassium 2.7 mmol/L (3.5-5.1)
[2025-07-18] MEDS: metroNIDAZOLE IV 500 MG/100 ML PREMIX 100 MG IV ×2 (08:24)
--- NOTE | 2025-07-18 09:09 | P.DS_ITS ---
Discharge Providers Date of Admission: 07/15/25 14:47 Date of Discharge: July 18, 2025 Attending Provider at Admission: Jennifer Smith MD Attending Provider at Discharge: Ger Dougherty MD Primary Care Provider: Jelly Stringer MD Diagnoses at Discharge Discharge Diagnosis 1. SBO (small bowel obstruction): 2. Hypoglycemia: 3. Dehydration determined by examination: 4. Body mass index (BMI) less than 19 in adult: 5. Hyperlipidemia: 6. Emphysema of lung: Reason for Visit Reason for Visit: NV / low rt abd pain Brief History: Patient is a five 74-year-old female who presented with abdominal pain. Imaging studies revealed apparent SBO. NG tube was passed, with intermittent suctioning. She was rehydrated with normal saline, while general surgery was consulted. Other symptoms were treated empirically. Hospital Course Hospital Course With remarkable return of bowel sounds, NG tube was clamped. Gastrografin was injected into the GI yesterday by general surgery, which showed positive result. Her diet was advanced, which she tolerated. She was able to have remarkable bowel movements between yesterday and today. Patient's hospital stay was complicated by an episode of hypoglycemia, which is probably because of 0 oral intake during the first 48 hours of hospital stay. This was corrected with IV dextrose. Also, this morning, she was hypokalemic, with potassium of 2.7. She will be given 40 mEq of potassium chloride IV, which have escalated the hypokalemia. Given resolution of all other above-mentioned problems, patient is therefore discharged today. Physical Exam Narrative: General: Awake and alert patient. Resp: No obvious respiratory distress or difficulty breathing. Abdomen: Soft. Not distended. Normal bowel sounds. Skin: No obvious rashes or new skin lesions. All other physical findings essentially within normal limits. Discharge Data Studies Completed and Pending Completed Studies During Hospitalization Category Date Time Status CT abdomen pelvis w con* [id number] Urgent Cat Scan 07/15/25 10:08 Completed XR KUB portable [id number] Stat Exams 07/17/25 11:34 Completed XR abdomen 1V* [id number] Routine Exams 07/15/25 17:06 Completed XR chest 1V portable [id number] Stat Exams 07/15/25 13:38 Completed XR chest 1V portable [id number] Stat Exams 07/16/25 00:01 Completed XR chest 1V portable [id number] Urgent Exams 07/15/25 10:08 Completed Pending at discharge Category Date Time Status Basic Metabolic Panel AM LABS Lab 07/19/25 04:00 Ordered CBC Auto Diff [Complete Blood Count w/Auto] AM LABS Lab 07/19/25 04:00 Ordered Radiology Impressions Abdomen/Pelvis CT 07/15/25 10:08 IMPRESSION: Findings most suggestive of a distal high-grade small bowel obstruction second maximilian to but could represent an internal hernia in the right pelvis involving the pelvic ileum as above noted with decompressed appearance of the terminal ileum. Findings of hyperinflation and emphysema with atelectasis lower lobes. Findings of liver cysts. Myomatous uterus . Abdomen X-Ray 07/15/25 17:06 IMPRESSION: Enteric tube projects over the stomach, the intended location. No adjustment recommended. Moderate age-appropriate degenerative spinal changes. Chest X-Ray 07/16/25 00:01 IMPRESSION: Emphysema with hyperinflation, concerning for COPD. Enteric feeding tube terminates in the stomach. KUB X-Ray 07/17/25 11:34 IMPRESSION: Contrast is seen throughout the large bowel loops. Vitals Last Vital Signs Temp 98.6 F 07/18/25 07:22 Pulse 101 H 07/18/25 08:05 Resp 16 07/18/25 08:05 BP 135/66 07/18/25 07:22 Pulse Ox 91 07/18/25 08:05 O2 Del Method Room Air 07/18/25 08:05 O2 Flow Rate 1 07/18/25 04:00 Discharge Plan Discharge Patient Disposition: Home Condition: Stable Prescriptions: New bisacodyl [Dulcolax (bisacodyl)] 5 mg tablet,delayed release (DR/EC) 5 - 10 mg PO BID PRN (Reason: constipation) Qty: 30 0RF Continued ipratropium bromide 0.02 % solution 2.5 ml inhalation QID PRN (Reason: COPD) Qty: 150 2RF Atrovent HFA 17 mcg/actuation HFA aerosol inhaler 2 puff inhalation QID Qty: 12.9 1RF Rx Instructions: use this inhaler until you can get a nebulizer tiotropium bromide [Spiriva with HandiHaler] 18 mcg capsule, w/inhalation device 1 cap inhalation DAILY Qty: 120 3RF Rx Instructions: puncture 1 cap using device; one dose = 2 inhalations amlodipine 5 mg tablet 5 mg PO DAILY Qty: 90 3RF diazepam 5 mg tablet 5 mg PO TID PRN (Reason: sleep) 30 Days Qty: 90 5RF hydrocodone-acetaminophen 5-325 mg tablet 0.5 tab PO Q6H PRN (Reason: Moderate Pain) 30 Days Qty: 60 0RF metoprolol tartrate 50 mg tablet 25 mg PO BID PRN (Reason: high blood pressure) mirtazapine 15 mg tablet 15 mg PO BEDTIME PRN (Reason: rest/appetite) Dining Room Supervisor OK for DC: Surgery Discharge Order = DC NOW: Discharge Order (Routine); Ordered 07/18/25 Ordered By: Ger Dougherty Referrals: Curtis Nichole MD [Physician, General Surgery] - 07/27/25 9:15 am Jelly Stringer MD [Primary Care Provider, Family Practice] Referral Note: We have notified your physician's clinic of the need for a follow-up appointment to be scheduled. If you have not heard from them within the next 2 business days, please call them directly. Discharge Diet: Advance as tolerated and Usual diet Discharge Activity: Resume usual activity Patient Instructions: Opioid Safety, Pain Management, Patient Portal & [facility] Instructions Activity Restrictions/Additional Instructions: Follow-up with your primary care provider within the next 1 to 2 weeks/as needed. May return to ER if symptoms recur, and if is an emergency. Discharge Attestations Time Spent in Discharge Care*: less than 30 min Status at Discharge: Cognitive status at discharge: cognitively intact , Behavioral status at discharge: cooperative , Quality Metrics Clinical Quality Measures [ No reported AMI, CVA or VTE this stay] Coding Level of Care Code Acute Code for Chg Fwd Diagnoses SBO (small bowel obstruction) K56.609 Hypoglycemia E16.2 Dehydration determined by examination E86.0 Body mass index (BMI) less than 19 in adult Z68.1 Hyperlipidemia E78.5 Emphysema of lung J43.9
--- NOTE | 2025-07-18 09:52 | PC.SOCIAL ---
IMM Updated Updated pt on IMM. No questions voiced. Provided pt a copy. Initialed, dated, & timed a copy & placed in chart.
--- NOTE | 2025-07-18 10:00 | P.PN_ITS ---
Subjective 2 Subjective: 74-year-old female admitted with SBO. C urrently doing well gastroenteritis anesthesia was positive patient has had multiple bowel movements since. No abdominal pain, Eliquis doing well Vitals/I&O/Wt Last Vital Signs Temp 98.6 F 07/18/25 07:22 Pulse 101 H 07/18/25 08:05 Resp 16 07/18/25 08:05 BP 135/66 07/18/25 07:22 Pulse Ox 91 07/18/25 08:05 O2 Del Method Room Air 07/18/25 08:05 O2 Flow Rate 1 07/18/25 04:00 07/17/25 07/18/25 07/18/25 22:59 06:59 14:59 Intake Total 160 / 1591.334 957.5 / 2548.834 220 / 220 Output Total 0 / 500 Balance 160 / 1091.334 957.5 / 2048.834 220 / 220 Weight last 48 hrs Weight 70 lb 12.8 oz Weight 63 lb Physical Exam 2 Narrative: Soft nontender nondistended Data 07/18/25 03:27 07/18/25 03:27 A&P Assessment and plan 1. SBO (small bowel obstruction): Plan: Excellent progression from the surgical standpoint. Only if concern this morning was some hypokalemia noted on labs that has been replaced by medical team. From the surgical standpoint after the patient eats lunch and if she tolerates she is cleared for discharge. She should continue on a GI soft diet and she will continue on daily MiraLAX for the next 30 days. I will see her in the office in 2 weeks for a follow-up PDMP PDMP Reviewed: Not Reviewed Attestations 2 Medical Necessity Statement*: Per medical team Coding Level of Care Code Acute Code for Chg Fwd Diagnoses SBO (small bowel obstruction) K56.609
== END 2025-07-18 13:03 | disposition home or self-care (01) | DRG 389 ==
LOC: ER 13:42 → MEDSURG 14:47
PROVIDERS: Emergency Medicine; Nurse Practitioner Gerontology; Surgery; Admitting Provider Internal Medicine; Emergency Provider Physician Assistant; PCP Family Medicine; Visit Provider Family Medicine
DX: K56.609 Unspecified intestinal obstruction, unspecified as to partial versus complete obstruction (principal); E87.1 Hypo-osmolality and hyponatremia; E16.2 Hypoglycemia, unspecified; E86.0 Dehydration; E78.5 Hyperlipidemia, unspecified; J43.9 Emphysema, unspecified; E87.6 Hypokalemia; I10 Essential (primary) hypertension; G89.29 Other chronic pain; M54.50 Low back pain, unspecified; I65.21 Occlusion and stenosis of right carotid artery; F41.9 Anxiety disorder, unspecified; F17.210 Nicotine dependence, cigarettes, uncomplicated
CPT/HCPCS: 36415; 36416; 71045; 74018; 74177; 80048; 80053; 81001; 82962; 83605; 83690; 83735; 84145; 85025; 93005; 94664; 96360; 96372; 99285; J0131; J0696; J1650; J2270; J2405; J3490; J7030; J7040; J7060; J9999; Q9963

== ENCOUNTER → 2025-07-26 11:38 | Outpatient (BNVA) | payer OTHER, SELFPAY | PROVIDERS: PCP Family Medicine; Visit Provider Nurse Practitioner Family | DX: E87.1 Hypo-osmolality and hyponatremia (principal) | CPT/HCPCS: 80048 ==

== ENCOUNTER → 2025-07-27 11:12 | Outpatient (BNVA) | payer OTHER, SELFPAY | PROVIDERS: PCP Family Medicine; Visit Provider Surgery | DX: K56.609 Unspecified intestinal obstruction, unspecified as to partial versus complete obstruction (principal) | CPT/HCPCS: 99214 ==

== ENCOUNTER 2025-08-04 11:55 | Inpatient (IN) | payer OTHER, SELFPAY ==
[2025-08-04] VITALS (12 sets, daily range): BP systolic 144–180; BP diastolic 73–106; PULSE 91–106; RESP 17–18; TEMP 36.6–36.7; O2SAT 90–98; BMI 11.5
--- OUTSIDE RECORDS SUMMARY | 2025-08-04 11:59 | XMS_ITS | Clinical Summary ---
Author Organization [facility] Address [address] [address] Phone Care Team Providers Care Yeast Culture Operator Name Role Phone Jelly Stringer MD Primary Care Provider Allergies Active Allergy Reactions Criticality Noted Date [...] COVID-19 VACCINE - EMERGENCY USE AUTHORIZATION, MRNA, [id number](PF) 30 MCG/0.3 ML IM SUSP 06/18/2021,11/23/2020,11/02/2020 (Pfizer [...] on file Legal Sex Female 2:09 PM TACKER OFF Gender Identity Not on file Sexual Orientation Not on file Last Filed Vital Signs Vital Sign Reading Time Taken Comments Blood Pressure 112/80 10/16/2018 3:40 PM TACKER OFF Pulse 80 10/16/2018 3:40 PM TACKER OFF Temperature 36.8 C (98.2 F) 10/16/2018 3:40 PM TACKER OFF Respiratory Rate 18 10/16/2018 3:40 PM TACKER OFF Oxygen Saturation - - Inhaled Oxygen Concentration - - Weight 39.7 kg (87 lb 9.6 oz) 10/16/2018 1:11 PM TACKER OFF Height 157.5 cm (5' 2 ) 10/16/2018 1:11 PM TACKER OFF Body Mass Index 16.02 10/16/2018 1:11 PM TACKER OFF Plan of Treatment Health Maintenance Due Date [...] (1 - 1-dose 75+ series) 2026 Insurance [facility] MCR Care Teams Yeast Culture Operator Relationship Specialty Start Date End Date Jelly Stringer MD [address] [facility] [address] [place] [address] PCP - General Family Practice 01/29/22
--- OUTSIDE RECORDS SUMMARY | 2025-08-04 11:59 | XMS_ITS | Encounter Summary ---
Author Organization [facility] Address [address] [place] [address] Care Team Providers Care Air Tool Operator Name Role Phone Curtis iWlkinson DO Primary Care Provider [phone] Encounter Details Date Type Department Care Team (Latest Contact Info) Description 06/20/1999 Outpatient [facility] [address] [place] [address] [place] [address] Cervicalgia (Primary Dx); Need vaccination-viral disease Social History Tobacco Use Types Packs/Day Years Used Date Smoking Tobacco: Never Assessed Comments Unknown Sex and Gender Information Value Date Recorded Sex Assigned at Not on file Legal Sex Female 4:23 AM DISABILITY LIAISON OFFICER Gender Identity Not on file Sexual Orientation Not on file documented as of this encounter Plan of Treatment Not on file documented as of this encounter Visit Diagnoses Diagnosis Cervicalgia- Primary Need vaccination-viral disease Need for prophylactic vaccination and inoculation against other viral diseases documented in this encounter Care Teams Air Tool Operator Relationship Specialty Start Date End Date Curtis Wilkinson DO [address] [place] [address] PCP - General Family Practice 09/19/14 documented as of this encounter
--- OUTSIDE RECORDS SUMMARY | 2025-08-04 11:59 | XMS_ITS | Encounter Summary ---
Author Organization [facility] Address [address] [place] [address] Care Team Providers Care Electric Trucker Name Role Phone Curtis Wilkinson DO Primary Care Provider [phone] Encounter Details Date Type Department Care Team (Late st Contact Info) Description 09/19/[address] [facility] Admitting [address] [place] [address] Curtis Wilkinson DO [address] [place] [address] Bronchitis (Primary Dx) Social History Tobacco Use Types Packs/Day Years Used Date Smoking Tobacco: Never Assessed Comments Unknown Sex and Gender Information Value Date Recorded Sex Assigned at Not on file Legal Sex Female 4:23 AM FRENCH CORD BINDER Gender Identity Not on file Sexual Orientation Not on file documented as of this encounter Plan of Treatment Not on file documented as of this encounter Results * XR CHEST PA AND LATERAL (09/19/2014 10:51 AM FRENCH CORD BINDER) Anatomical Region Laterality Modality Chest Computed Radiogr aphy 09/19/2014 10:4 4 AM FRENCH CORD BINDER Narrative 09/19/2014 10:56 AM FRENCH CORD BINDER PROCEDURE XR CHEST, 2 views, 19 September [...] chronic documented in this encounter Care Teams Electric Trucker Relationship Specialty Start Date End Date Curtis Wilkinson DO [address] [place] [address] PCP - General Family Practice 09/19/14 documented as of this encounter
--- OUTSIDE RECORDS SUMMARY | 2025-08-04 11:59 | XMS_ITS | Encounter Summary ---
Author Organization [facility] Address [address] [place] [address] Care Team Providers Care Manager Diesel Name Role Phone Curtis Wilkinson DO Primary Care Provider [phone] Encounter Details Date Type Department Care Team (Late st Contact Info) Description 12/15/[address] [facility] Rheumatology- [facility] [address] [place] [id number] Social History Tobacco Use Types Packs/Day Years Used Date Smoking Tobacco: Never Assessed Comments Unknown Sex and Gender Information Value Date Recorded Sex Assigned at Not on file Legal Sex Female 4:[address]RI[address] Gender Identity Not on file Sexual Orientation Not on file documented as of this encounter Plan of Treatment Not on file documented as of this encounter Visit Diagnoses Not on filedocumented in this encounter Care Teams Manager Diesel Relationship Specialty Start Date End Date Curtis Wilkinson DO [address] [place] [address] PCP - General Family Practice 09/19/14 documented as of this encounter
--- OUTSIDE RECORDS SUMMARY | 2025-08-04 11:59 | XMS_ITS | Clinical Summary ---
Author Organization [facility] Address [address] [address] Phone Care Team Providers Care Community Manager Name Role Phone Curtis Wilkinson DO Primary Care Provider [phone] Allergies Active Allergy Reactions Criticality Noted Date [...] Active Immunizations Immunization Administration Dates Next Due ([employer])(12 YR UP) COVID-19 VACCINE - EMERGENCY USE AUTHORIZATION, MRNA, [id number](PF) 30 MCG/0.3 ML IM SUSP 11/23/2020,11/02/2020 Influenza [...] on file Legal Sex Female 4:23 AM SENIOR EMBEDDED SOFTWARE ENGINEER Gender Identity Not on file Sexual Orientation Not on file Last Filed Vital Signs Vital Sign Reading Time Taken Comments Blood Pressure 112/80 10/16/2018 3:40 PM SENIOR EMBEDDED SOFTWARE ENGINEER Pulse 80 10/16/2018 3:40 PM SENIOR EMBEDDED SOFTWARE ENGINEER Temperature 36.8 C (98.2 F) 10/16/2018 3:40 PM SENIOR EMBEDDED SOFTWARE ENGINEER Respiratory Rate 18 10/16/2018 3:40 PM SENIOR EMBEDDED SOFTWARE ENGINEER Oxygen Saturation 98% 10/16/2018 3:40 PM SENIOR EMBEDDED SOFTWARE ENGINEER Inhaled Oxygen Concentration - - Weight 39.7 kg (87 lb 9.6 oz) 10/16/2018 1:11 PM SENIOR EMBEDDED SOFTWARE ENGINEER Height 157.5 cm (5' 2 ) 10/16/2018 1:11 PM SENIOR EMBEDDED SOFTWARE ENGINEER Body Mass Index 16.02 10/16/2018 1:11 PM SENIOR EMBEDDED SOFTWARE ENGINEER Plan of Treatment Health Maintenance Due Date [...] (1 - 1-dose 75+ series) 2026 Insurance [facility] MCR Care Teams Community Manager Relationship Specialty Start Date End Date Curtis Wilkinson DO [address] [place], [place] [address] PCP - General Family Practice 09/19/14
--- OUTSIDE RECORDS SUMMARY | 2025-08-04 11:59 | XMS_ITS | Encounter Summary ---
Author Organization [facility] Address [address] [place] [address] Care Team Providers Care Rn Traveling Name Role Phone Curtis Wilkinson DO Primary Care Provider [phone] Encounter Details Date Type Department Care Team (Late st Contact Info) Description 01/29/2016 Ancillary Orders [facility] Admitting [address] [place] [phone] Curtis Wilkinson DO [address] [place] [address] Social History Tobacco Use Types Packs/Day Years Used Date Smoking Tobacco: Never Assessed Comments Unknown Sex and Gender Information Value Date Recorded Sex Assigned at Not on file Legal Sex Female 4:23 AM TIE BUYER Gender Identity Not on file Sexual Orientation Not on file documented as of this encounter Plan of Treatment Not on file documented as of this encounter Visit Diagnoses Not on filedocumented in this encounter Care Teams Rn Traveling Relationship Specialty Start Date End Date Curtis Wilkinson DO [address] [place], [place] [address] PCP - General Family Practice 09/19/14 documented as of this encounter
--- NOTE | 2025-08-04 12:34 | XRR_ITS ---
PROCEDURE INFORMATION: Exam: XR Abdomen Exam date and time: 08/04/2025 12:39 PM Age: 74 years old Clinical indication: Abdominal pain; Generalized; Additional info: Abd pain TECHNIQUE: Imaging protocol: Radiologic exam of the abdomen. Views: Frontal supine view of the abdomen. 1 View. COMPARISON: CR (ABDOMEN, ) 07/17/2025 12:36 PM FINDINGS: Lungs: Evaluation of the lung bases is limited by radiographic technique. Gastrointestinal tract: Air distended bowel loops are again noted. Organs: Calcification of the pelvis is likely related to uterine fibroid seen on prior CT. Vasculature: No pneumatosis intestinalis or portal venous gas. Atherosclerotic vascular disease. Bones/joints: Unremarkable. XR/XR abdomen 1V* [id number] IMPRESSION: Dilated distal small bowel loops with some air noted in the colon. Partial small bowel obstruction versus ileus.
--- NOTE | 2025-08-04 12:34 | ED_ITS ---
HPI - Abdominal Pain 2 General: Chief Complaint: Abdominal Pain Stated Complaint: abd pain Time Seen by Provider: 08/04/25 12:34 History of Present Illness: 74-year-old female with a history of sma ll bowel obstruction with admission and recently which resolved with conservative management, anxiety, chronic low back pain, hypertension, hyperlipidemia, hypothyroidism, COPD, and history of CVA who presents to the emergency room with abdominal pain. She says this time she is having a burning in her epigastrium. She is quite tender in her epigastric area. She does not appear distended. She has had nausea and vomiting. She is quite cachectic appearing. Family member who is present says she has lost quite a bit of weight recently Related Data Home Medications ?Medication ?Instructions ?Recorded ?Confirmed metoprolol tartrate 50 mg tablet 25 mg PO BID PRN high blood 07/15/25 08/04/25 pressure mirtazapine 15 mg tablet 15 mg PO BEDTIME PRN rest/ap petite 07/15/25 08/04/25 budesonide-formoterol HFA 80 2 puff inhalation BID 08/04/25 mcg-4.5 mcg/actuation aerosol inhaler (Symbicort) Previous Rx's ?Medication ?Instructions ?Recorded amlodipine 5 mg tablet 5 mg PO DAILY high blood pre ssure 10/19/24 #90 tabs diazepam 5 mg tablet 5 mg PO TID PRN sleep 30 day s #90 02/10/25 tabs hydrocodone 5 mg-acetaminophen 325 0.5 tab PO Q6H PRN Moderate Pain 05/17/25 mg tablet 30 days #60 tabs ipratropium bromide 0.02 % 2.5 ml inhalation QID PRN C OPD 05/26/25 solution for inhalation #150 mL ipratropium bromide 17 2 puff inhalation QID #12.9 grams 05/26/25 mcg/actuation HFA aerosol inhaler (Atrovent HFA) bisacodyl 5 mg tablet,delayed 5 - 10 mg (1 - 2 x 5 mg) PO BID 07/18/25 release (Dulcolax (bisacodyl)) PRN constipation #30 ta bs Allergies Allergy/AdvReac Type Severity Reaction Status Date / Time aspirin Allergy NA Verified 08/04/25 12:12 Penicillins Allergy NA Verified 08/04/25 12:12 Sulfa (Sulfonamide Allergy NA Verified 08/04/25 12:12 Antibiotics) tramadol (From Ultram) Allergy ALGY-Hives Verified 08/04/25 12:12 Review of Systems 2 Narrative: Constitutional symptoms: Negative except as documented in HPI. Skin symptoms: Negative except as documented in HPI. Eye symptoms: Negative except as documented in HPI. ENMT symptoms: Negative except as documented in HPI. Respiratory symptoms: Negative except as documented in HPI. Cardiovascular symptoms: Negative except as documented in HPI. Gastrointestinal symptoms: Negative except as documented in HPI. Genitourinary symptoms: Negative except as documented in HPI. Musculoskeletal symptoms: Negative except as documented in HPI. Neurologic symptoms: Negative except as documented in HPI. Psychiatric symptoms: Negative except as documented in HPI. Endocrine symptoms: Negative except as documented in HPI. PFSH ED 2 PFSH: Medical History (Updated 08/04/25 @ 17:38 by Vidhi Morejon MD) Right-sided extracranial carotid artery stenosis Anxiety Chronic low back pain Hypertension Family History Father CAD (coronary artery disease) Mother CAD (coronary artery disease) Hypertension Brother CAD (coronary artery disease) Hypertension Grandmother Stroke Denies family history of Diabetes Cancer Social History Smoking and tobacco/nicotine status: current every day tobacco/nicotine user cigarettes Packs smoked per day: 0.5 Years cigarettes smoked: 55 Alcohol intake: never Substance/Drug Use: never Lives independently: Yes Household members: spouse Housing: House Marital status: Number of children: 1 Pets and animals: No Physical Exam 2 Narrative: EXAM NARRATIVE: general: Alert, no acute distress. Patient does appear quite cachectic Skin: Warm, dry. Head: Normocephalic, atraumatic. Neck: Supple, trachea midline. Eye: Extraocular movements are intact. Ears, nose, mouth and throat: mucosa moist. Cardiovascular: Regular, Normal peripheral perfusion. Respiratory: Lungs are clear to auscultation, respirations are non-labored, breath sounds are equal, Symmetrical chest wall expansion. Gastrointestinal: Soft, quite tender in epigastric region, Non distended Musculoskeletal: Normal ROM, no deformity. Neurological: Alert and oriented, No focal neurological deficit observed. Psychiatric: Cooperative, appropriate mood & affect. Course 2 Vital Signs: Vital signs: Vital Signs Temperature 98.1 F 08/04/25 12:08 Pulse Rate 97 08/04/25 16:25 Respiratory Rate 18 08/04/25 12:08 Blood Pressure 178/87 08/04/25 16:25 Pulse Oximetry 93 08/04/25 16:25 Oxygen Delivery Me thod Room Air 08/04/25 16:25 MDM - Abdominal Pain Medical Decision Making Medical decision making Patient's reason for coming to the emergency room: Abdominal pain Social determinants: Retired I reviewed the patient's medical record. Recent admission for small bowel obstruction. She had a follow-up on the with Dr. Lopez I reviewed the patient's current home meds no anticoagulation Alternate historians: None Differential diagnosis including but not limited to and based on the above HPI, review of systems and physical exam: In this patient with epigastric pain differential would include cholelithiasis or cholecystitis. Hepatitis. Diverticulitis. Constipation. UTI. colitis. small bowel obstruction. Crohn's flare. pancreatitis. gastritis. peptic ulcer. also concern for acute cardiac event. Orders placed to evaluate differential diagnosis based on the above differential, HPI and physical exam Acute abdominal series: No acute lung process. Dilated small bowel loops indicating partial small bowel obstruction versus ileus. This was reviewed and interpreted by myself the emergency room physician. I also reviewed the radiology report. CT of the abdomen pelvis: Small bowel obstruction with concern for volvulus. This was reviewed and interpreted by myself the emergency room physician. I also reviewed the radiology report. Lab Review: Laboratory results were reviewed and interpreted by myself the emergency room physician. No leukocytosis. No anemia. No renal failure. Urinalysis is negative for infection. Assessment of risk: Level of risk: High risk patient. Elderly. Multiple comorbidities. Hospitalization considerations: Is being admitted. Reexamination: Patient remained stable. No increased work of breathing. No altered mental status. No focal motor deficits. Patient tolerated NG tube fairly well. Consultation: I spoke with Dr. Winn who is on-call for general surgery who saw the patient and agrees with NG tube placement and recommends serial x-rays with Gastrografin. Consultation: I spoke with Dr. Jovel who is on-call for the hospitalist service and who agrees to admission. Assessment and plan: Small bowel obstruction ?NG tube, Zofran. -I discussed the patient with the hospitalist on-call who is admitting the patient. - Discussed findings and plan with patient. Answered any questions. - All laboratory values were reviewed and interpreted personally by myself, the ER physician - All imaging was reviewed and interpreted personally by myself, the ER physician. - Evaluation and treatment of this problem were appropriate in the emergency setting Lab Data 08/04/25 12:41 08/04/25 12:41 Labs/Radiology: Radiology Impressions Abdomen X-Ray 08/04/25 12:34 IMPRESSION: Dilated distal small bowel loops with some air noted in the colon. Partial small bowel obstruction versus ileus. Abdomen/Pelvis CT 08/04/25 13:03 IMPRESSION: 1. Twisting of mesenteric vessels in the right lower quadrant resulting in small bowel volvulus. Dilated small bowel loops consistent with at least partial obstruction. 2. Abdominal aortic aneurysm measuring 1.7 x 1.6 cm. 3. Marked atherosclerotic vascular disease with luminal narrowing of the origin of the celiac axis and SMA . COMMENT: THIS REPORT CONTAINS FINDINGS THAT MAY BE CRITICAL TO PATIENT CARE. The exam findings were verbally communicated by me to VIDHI MOREJON via telephone conference at 01:42 PM CABINETMAKER SUPERVISOR on 08/04/2025. The findings were acknowledged and understood. ADDENDUM: 08/04/25 1415 Addendum: Results were discussed with Dr. Miller regarding the twisting of small bowel in the right lower quadrant. Further evaluation with oral contrast and either sequential radiographs or follow-up CT was discussed to further evaluate the possible obstruction. Chest X-Ray 08/04/25 15:16 IMPRESSION: 1. NG tube is in adequate position. 2. Small bowel distension with air-fluid levels consistent with element of obstruction Laboratory Results WBC 9.07 10^3/uL (3.29-11.43) 08/04/25 12:41 RBC 4.83 10^6/uL (3.85-5.65) 08/04/25 12:41 Hgb 14.90 g/dL (11.27-16.99) 08/04/25 12:41 Hct 45.9 % (36-47) 08/04/25 12:41 MCV 95.0 fl (85-98) 08/04/25 12:41 MCH 30.8 pg (27-33) 08/04/25 12:41 MCHC 32.5 g/dL (30-55) 08/04/25 12:41 RDW 15.0 % (12.1-15.1) 08/04/25 12:41 Plt Count 230 10^3/cmm (157-399) 08/04/25 12:41 MPV 11.4 fL (7.4-10.4) H 08/04/25 12:41 Neut % (Auto) 75.8 % 08/04/25 12:41 Lymph % (Auto) 12.8 % 08/04/25 12:41 [place] % (Auto) 10.4 % 08/04/25 12:41 Eos % (Auto) 0.1 % 08/04/25 12:41 Baso % (Auto) 0.3 % 08/04/25 12:41 Neut # (Auto) 6.88 10^3/uL (1.8-7.7) 08/04/25 12:41 Lymph # (Auto) 1.2 10^3/uL (0.8-4.8) 08/04/25 12:41 [place] # (Auto) 0.9 10^3/uL (0.2-0.9) 08/04/25 12:41 Eos # (Auto) 0.0 10^3/uL (0.0-0.8) 08/04/25 12:41 Baso # (Auto) 0.0 10^3/uL (0.0-0.1) 08/04/25 12:41 Nucleated RBC % (auto) 0 % 08/04/25 12:41 Nucleated RBCs # 0.0 /100WBC 08/04/25 12:41 Sodium 134 mmol/L (136-145) L 08/04/25 12:41 Potassium 4.8 mmol/L (3.5-5.1) 08/04/25 12:41 Chloride 95 mmol/L (98-107) L 08/04/25 12:41 Carbon Dioxide 28 mmol/L (22-29) 08/04/25 12:41 Anion Gap 15.8 (5-19) 08/04/25 12:41 BUN 21 mg/dL (8-23) 08/04/25 12:41 Creatinine 0.7 mg/dL (0.5-0.9) 08/04/25 12:41 GFR Calculation Not Reportable 08/04/25 12:41 Glucose 111 mg/dL (65-115) 08/04/25 12:41 Calculated Osmolality 282 mOsm/kg (285-295) L 08/04/25 12:41 Lactic Acid 1.4 mmol/L (0.5-2.2) 08/04/25 12:41 Calcium 9.8 mg/dL (8.5-10.5) 08/04/25 12:41 Total Bilirubin 0.7 mg/dL (0.15-1.2) 08/04/25 12:41 AST 26 U/L (0-32) 08/04/25 12:41 ALT 12 U/L (0-33) 08/04/25 12:41 Alkaline Phosphatase 63 U/L (35-105) 08/04/25 12:41 C-Reactive Protein 3.0 mg/L (0.0-4.9) 08/04/25 12:41 Total Protein 7.9 g/dL (6.6-8.7) 08/04/25 12:41 Albumin 4.3 g/dL (3.5-5.2) 08/04/25 12:41 Globulin 3.6 g/dL (1.3-4.6) 08/04/25 12:41 Lipase 17 U/L (13-60) 08/04/25 12:41 Urine Color Yellow (Yellow) 08/04/25 13:05 Urine Appearance Clear (CLEAR) 08/04/25 13:05 Urine pH 7.0 (5-7) 08/04/25 13:05 Ur Specific [place] 1.016 (1.005-1.030) 08/04/25 13:05 Urine Protein Trace (Negative) A 08/04/25 13:05 Urine Glucose (UA) Negative (Normal) 08/04/25 13:05 Urine Ketones Trace (Negative) 08/04/25 13:05 Urine Blood Negative (Negative) 08/04/25 13:05 Urine Nitrate Negative (Negative) 08/04/25 13:05 Urine Bilirubin Negative (Negative) 08/04/25 13:05 Urine Urobilinogen 0.2 mg/dL (Negative) 08/04/25 13:05 Ur Leukocyte Esterase 1+ (Negative) A 08/04/25 13:05 Urine RBC 0-2 /hpf (0-2) 08/04/25 13:05 Urine WBC 11-20 /hpf (0-5) H 08/04/25 13:05 Ur Squamous Epith Cells 0-5 /hpf (0-5) 08/04/25 13:05 Amorphous Sediment Not Reportable 08/04/25 13:05 Urine Bacteria None seen /hpf (NONE) 08/04/25 13:05 Hyaline Casts 11.16 /lpf 08/04/25 13:05 All radiology interpretation(s) finalized by discharge Discharge Plan Discharge Patient Disposition: Admitted As Inpatient Admit Provider: Darinel Jovel Clinical Impression: Small bowel obstruction Condition: Stable Coding Level of Care Code ED Gps Field Data Collector for Hong Gupta
--- NOTE | 2025-08-04 12:55 | PC.NURSE ---
attempted to obtain urine sample. pt requesting to use bedside commode. no commode available. EVS notified and working on getting commode.
--- NOTE | 2025-08-04 13:03 | CTR_ITS ---
PROCEDURE INFORMATION: Exam: CT Abdomen And Pelvis With Contrast Exam date and time: 08/04/2025 01:16 PM Age: 74 years old Clinical indication: Abdominal tenderness; Prior surgery; Surgery date: 6+ months; Surgery type: Appy; Additional info: Sbo TECHNIQUE: Imaging protocol: Computed tomography of the abdomen and pelvis with contrast. Radiation optimization: All CT scans at this facility use at least one of these dose optimization techniques: automated exposure control; mA and/or kV adjustment per patient size (includes targeted exams where dose is matched to clinical indication); or iterative reconstruction. Contrast material: OMNIPAQUE 350; Contrast volume: 100 ml; Contrast route: INTRAVENOUS (IV); COMPARISON: CT abdomen pelvis w con* [id number] 07/15/2025 11:12 AM RADIATION DOSE METRICS: Total DLP (mGy-cm): 270.75 FINDINGS: Coronary arteries: Coronary artery calcifications. Liver: Two stable low-attenuation lesions in the liver, similar to the study from 07/15/2025. Gallbladder and biliary ducts: Partially contracted gallbladder. Pancreas: Mild dilatation of the pancreatic duct. Spleen: Normal. No splenomegaly. Adrenal glands: Normal. No mass. Kidneys and ureters: Normal. No hydronephrosis. Stomach and bowel: Dilated small bowel loops, secondary to at least partial obstruction. Appendix: No evidence of appendicitis. Intraperitoneal space: Unremarkable. No free air. No significant fluid collection. Vasculature: Abdominal aortic aneurysm measuring 1.7 x 1.6 cm. Twisting of mesenteric vessels in the right lower quadrant consistent with volvulus. Atherosclerotic vascular disease. Calcification of the origin of the celiac axis and SMA resulting in luminal narrowing. Calcification of the origin of the right and left renal arteries, resulting in a degree of luminal narrowing. Lymph nodes: Unremarkable. No enlarged lymph nodes. Urinary bladder: Unremarkable as visualized. Reproductive: Unremarkable as visualized. Bones/joints: Unremarkable. No acute fracture. Soft tissues: Unremarkable. CT/CT abdomen pelvis w con* [id number] IMPRESSION: 1. Twisting of mesenteric vessels in the right lower quadrant resulting in small bowel volvulus. Dilated small bowel loops consistent with at least partial obstruction. 2. Abdominal aortic aneurysm measuring 1.7 x 1.6 cm. 3. Marked atherosclerotic vascular disease with luminal narrowing of the origin of the celiac axis and SMA . COMMENT: THIS REPORT CONTAINS FINDINGS THAT MAY BE CRITICAL TO PATIENT CARE. The exam findings were verbally communicated by me to AUBRIE CHENEY via telephone conference at 01:42 PM EMPLOYMENT SECURITY OFFICER on 08/04/2025. The findings were acknowledged and understood.
[2025-08-04 13:21] LABS: Hematocrit 45.9 % (36-47); Hemoglobin 14.90 g/dL (11.27-16.99); Mean Corpuscular HGB Conc 32.5 g/dL (30-55); Mean Corpuscular Hemoglobin 30.8 pg (27-33); Mean Corpuscular Volume 95.0 fl (85-98); Nucleated Red Blood Cells % 0 %; Platelet Count 230 10^3/cmm (157-399); Red Blood Count 4.83 10^6/uL (3.85-5.65); White Blood Count 9.07 10^3/uL (3.29-11.43)
[2025-08-04 13:23] LABS: Glucose Urine UA Negative (Normal); Nitrate Urine Negative (Negative); Specific Gravity, Urine 1.016 (1.005-1.030)
[2025-08-04] MEDS: iohexol 350 mg/mL 500 mL Btl (per mL) IV (13:26)
[2025-08-04 13:33] LABS: Alanine Aminotransferase 12 U/L (0-33); Albumin Level 4.3 g/dL (3.5-5.2); Alkaline Phosphatase 63 U/L (35-105); Aspartate Amino Transferase 26 U/L (0-32); Blood Urea Nitrogen 21 mg/dL (8-23); Calcium 9.8 mg/dL (8.5-10.5); Carbon Dioxide 28 mmol/L (22-29); Chloride 95 mmol/L (98-107); Globulin 3.6 g/dL (1.3-4.6); Glucose 111 mg/dL (65-115); Lipase 17 U/L (13-60); Osmolality Calculated 282 mOsm/kg (285-295); Sodium 134 mmol/L (136-145); Total Protein 7.9 g/dL (6.6-8.7)
[2025-08-04 13:34] LABS: Anion Gap 15.8 (5-19); Lactic Sepsis W/Reflex 1.4 mmol/L (0.5-2.2); Potassium 4.8 mmol/L (3.5-5.1)
[2025-08-04 13:40] LABS: UA Slide Review UA Slide Review Perf
--- NOTE | 2025-08-04 15:16 | XRR_ITS ---
PROCEDURE INFORMATION: Exam: XR Chest Exam date and time: 08/04/2025 3:18 PM Age: 74 years old Clinical indication: Device placement; Ng tube; Prior surgery; Surgery date: 6+ months; Surgery type: Right carotid, appendectomy; Additional info: Ng tube placement confirmation TECHNIQUE: Imaging protocol: Radiologic exam of the chest. Views: 1 view. COMPARISON: CR (CHEST, ) 07/16/2025 1:24 AM FINDINGS: Lungs: Unremarkable. No consolidation. Pleural spaces: Unremarkable. No pleural effusion. No pneumothorax. Heart/Mediastinum: Unremarkable. No cardiomegaly. Bones/joints: Right convexity thoracolumbar scoliosis with degenerative changes. Upper abdomen: NG tube present with the side port in the area of the fundus of the stomach and its tip in the area of the body of the stomach. Adequate location. Distended small bowel measuring up to 3.8 cm in diameter with air-fluid levels. XR/XR chest 1V portable [id number] IMPRESSION: 1. NG tube is in adequate position. 2. Small bowel distension with air-fluid levels consistent with element of obstruction
[2025-08-04] MEDS: diatrizoate meglumine 120 mL Sol PO (16:39)
--- NOTE | 2025-08-04 16:48 | P.CONIM_ITS ---
Providers/Reason For Consult 2 Consulting Physician/Specialty*: tim felix MD general surgery Reason for Consult*: SBO and possible SB volvulus on CT scan Requesting Physician: Vidhi Morejon ER provider Attending Physician: Darinel Jovel MD Primary Care Provider: Jelly Stringer MD History of Present Illness History of Present Illness Lyndsay Jerome is a 74 year old female who was admitted for RLQ partial SBO with possible SB volvulus and mesenteric artery calcification c/w possible stenosis. She is quite thin but this is nothing new with stable weight at 63 pounds. She takes miralax daily. She responded to conservative management with NG tube decompression with gastrograffin tube studay done two days later showing contrast in colon within a couple hours. SHe feels this episode is not any worse and probably not as severe as on 09/15/24. She currently denies pain and hears gurgling. She states she has burning sensation in RLQ. She tried to eat roast beef last night and this resulted. She has been trying to eat just soft food and introduced mores solid roast beef yesterday. No F/C/S. She had a couple of episodes of N/V but no blood last night. Last time her WBC was elevated to 14K but today it is normal so far. SHe had right CEA for what sounds like TIA and takes plavix every other day. She has HTN. She smokes daily. SHe lives with her . Only surgery was appy open when she was around 17 yo. 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 She has had back fracture when she hit back area trying to move mattress by herself. She is on daily narcotic for back pain. CT is showing solid stool in distal colon. NG was placed in ER and not much coming out with lightly bile stained fluid. Review of Systems 2 Narrative: Constitutional: denies rigors, singnificant weight gain, increased appetite HEENT: denies chronic cough, blurry vision, excessive tearing, eye pain, flashing lights, odynophagia, painful mastication, change in voice, change in taste, chronic sore throat, hypersalivation Heart: denies racing heart, palpitations, othropnea, PND Lungs: denies hemoptysis, pain with deep inspiration, chronic bronchitis GI: denies hematemesis, hematochezia, dysphagia, tenesmus : denies polyuria, hematuria, painful micturation Musculoskeletal: denies hemarthrosis, Muscle wasting, change in amubation Neuro: denies new onset syncope, dysesthesia, dysequilibrium, ptosis eyelid or face SKin: denies new onset hyperalgia, new rash new cyanosis Endocrine: denies new polyuria, polydipsia, polyphagia, heat intolerance, excessive energy Hem/Onc: denies new petechiae, swollen glands, new excessive epstaxis Psych: denies racing thought Medications/Allergies Home Medications ?Medication ?Instructions ?Recorded ?Confirmed ?Last Taken ?Type amlodipine 5 mg tablet 5 mg PO DAILY high blood pre ssure 10/19/24 08/04/25 08/03/25 Rx #90 tabs diazepam 5 mg tablet 5 mg PO TID PRN sleep 30 day s #90 02/10/25 08/04/25 08/03/25 Rx tabs hydrocodone 5 mg-acetaminophen 325 0.5 tab PO Q6H PRN Moderate Pain 05/17/25 08/04/25 Unknown Rx mg tablet 30 days #60 tabs ipratropium bromide 0.02 % 2.5 ml inhalation QID PRN C OPD 05/26/25 08/04/25 08/03/25 Rx solution for inhalation #150 mL ipratropium bromide 17 2 puff inhalation QID #12.9 grams 05/26/25 08/04/25 Unknown Rx mcg/actuation HFA aerosol inhaler (Atrovent HFA) metoprolol tartrate 50 mg tablet 25 mg PO BID PRN high blood 07/15/25 08/04/25 Unknown History pressure mirtazapine 15 mg tablet 15 mg PO BEDTIME PRN rest/ap petite 07/15/25 08/04/25 Unknown History bisacodyl 5 mg tablet,delayed 5 - 10 mg (1 - 2 x 5 mg) PO BID 07/18/25 08/04/25 08/03/25 Rx release (Dulcolax (bisacodyl)) PRN constipation #30 ta bs budesonide-formoterol HFA 80 2 puff inhalation BID 08/04/25 08/03/25 History mcg-4.5 mcg/actuation aerosol inhaler (Symbicort) Allergies Allergy/AdvReac Type Severity Reaction Status Date / Time aspirin Allergy NA Verified 08/04/25 12:12 Penicillins Allergy NA Verified 08/04/25 12:12 Sulfa (Sulfonamide Allergy NA Verified 08/04/25 12:12 Antibiotics) tramadol (From Ultram) Allergy ALGY-Hives Verified 08/04/25 12:12 PFSH Acute 2 PFSH: Medical History (Updated 08/04/25 @ 17:00 by Chau Felix MD) Right-sided extracranial carotid artery stenosis Anxiety Chronic low back pain Hypertension Family History Father CAD (coronary artery disease) Mother CAD (coronary artery disease) Hypertension Brother CAD (coronary artery disease) Hypertension Grandmother Stroke Denies family history of Diabetes Cancer Social History Smoking and tobacco/nicotine status: current every day tobacco/nicotine user cigarettes Packs smoked per day: 0.5 Years cigarettes smoked: 55 Alcohol intake: never Substance/Drug Use: never Lives independently: Yes Household members: spouse Housing: House Marital status: Number of children: 1 Pets and animals: No Vitals/I&O/Wt Last Vital Signs Temp 98.1 F 08/04/25 12:08 Pulse 97 08/04/25 16:25 Resp 18 08/04/25 12:08 BP 178/87 08/04/25 16:25 Pulse Ox 93 08/04/25 16:25 O2 Del Method Room Air 08/04/25 16:25 08/04/25 08/04/25 08/04/25 06:59 14:59 22:59 Intake Total 0 / 0 Balance 0 / 0 Weight last 48 hrs Weight 63 lb Physical Exam 2 Narrative: Patient is a well developed well nourished and in NAD and is afebrile with vitals stable and is answering questions appropriately with a normal affect and is alert and oriented x3 HEENT: normocephalic with normal external ears and nonicteric, oral mucosa moist and dentition normal for age, trachea midline with no large masses visualized Heart: RRR, no gallops murmurs or rubs, normal PMI with no thrills Lungs: normal excursions, no loud audible wheezing, no subcutaneous emphysema Abdomen: nondistended, no gross hepatosplenomegaly, no masses, no rigidity or rebound, positive loud borborygmi, very skinny and scaphoid abdomen, slightly tender RLQ and no masses and no rebound. Neuro: nonfocal, ORTIZ, grossly normal sensation Musculoskeletal: good muscle tone, no fasciculations, normal gait Skin: pink warm and dry with no rashes or ecchymosis Vascular: good radial pulses, no ulceration, less than 2 second capillary refill in hand : deferred Data 08/04/25 12:41 08/04/25 12:41 Micro: Microbiology 08/04/25 12:41 Blood Culture - Preliminary Blood SPECIMEN COLLECTED 08/04/25 12:43 Blood Culture - Preliminary Blood SPECIMEN COLLECTED A&P Assessment and plan 1. Volvulus of intestine: Plan: Patient is clinically not as symptomatic from volvulus as just 3 weeks ago. She initially was going to leave AMA but daughter and talked patient into staying. Will keep bowel at rest with NG and get repeat xrays with gastrograffin to see it it extends distally. If not then will re evaluate for possible ex lap. I talked to radiologist and she does not see any edema in wall of bowel and sees air and stool in colon. She recommends getting gastrograffin study with delayed film 4 and 8 and 24 hours later to see if it progresses. PDMP PDMP Reviewed: Not Reviewed Coding Level of Care Code 06539 Diagnoses Volvulus of intestine K56.2
[2025-08-04] MEDS: ondansetron 2 mg/ML SDV 2 mL 8 MG IVP (17:25)
--- NOTE | 2025-08-04 19:34 | P.HP_ITS ---
Providers/Chief Complaint 2 Admitting Physician: Darinel Jovel MD Primary Care Provider: Jelly Stringer MD Chief Complaint: abd pain History of Present Illness Lyndsay Jerome is a 74 year old female with prior medical history of HTN, HLD, COPD, SBO, CVA, chronic low back pain, status post carotid endarterectomy, chronic ear pain, tobacco use disorder, anxiety, emphysema, and vision loss presenting with complaints of abdominal pain. Pain is described as epigastric burning and tenderness. Endorses nausea, vomiting, and unexpected weight loss. Pain is still a 9/10 despite reciving medication in the ED. Nausea still persists despite zofran. Will adjust medications conservatively with attention to age and weight considerations as well as GI considerations. Patient is a full code. In the ED, BP 179/84, HR 91, RR 18, T98.1, O2 92% on room air. WBC 9.07, Hgb 14.9, PLT 230. Potassium 4.8. Sodium 134. Chloride 95. AST/ALT WNL. CRP WNL. CXR; NG tube in adequate position, small bowel distention with air-fluid levels consistent with element of obstruction. Abdomen/pelvis CT; twisting of mesenteric vessels in the right lower quadrant resulting in small bowel volvulus, dilated small bowel loops consistent with at least partial obstruction, abdominal aortic aneurysm measuring 1.7 X1 0.6 cm, marked atherosclerotic vascular disease with luminal narrowing of the origin of the celiac axis and SMA, see full results. Abdomen x-ray; dilated distal small bowel loops with some air noted in the colon, partial small bowel obstruction versus ileus, see full results. Review of Systems 2 Const: Reports: change in weight; Denies: fever(s), chills or fatigue Eyes: Denies: change in vision ENMT: Denies: odynophagia Card: Denies: chest pain Resp: Denies: dyspnea GI: Reports: abdominal pain, nausea and vomiting; Denies: dysphagia or hematochezia : Denies: dysuria Skin/Breast: Denies: rash Neuro: Denies: seizure-like activity Pro/Lymph: Denies: easy bruising Medications/Allergies Home Medications ?Medication ?Instructions ?Recorded ?Confirmed ?Last Taken ?Type amlodipine 5 mg tablet 5 mg PO DAILY high blood pre ssure 10/19/24 08/04/25 08/03/25 Rx #90 tabs diazepam 5 mg tablet 5 mg PO TID PRN sleep 30 day s #90 02/10/25 08/04/25 08/03/25 Rx tabs hydrocodone 5 mg-acetaminophen 325 0.5 tab PO Q6H PRN Moderate Pain 05/17/25 08/04/25 Unknown Rx mg tablet 30 days #60 tabs ipratropium bromide 0.02 % 2.5 ml inhalation QID PRN C OPD 05/26/25 08/04/25 08/03/25 Rx solution for inhalation #150 mL ipratropium bromide 17 2 puff inhalation QID #12.9 grams 05/26/25 08/04/25 Unknown Rx mcg/actuation HFA aerosol inhaler (Atrovent HFA) metoprolol tartrate 50 mg tablet 25 mg PO BID PRN high blood 07/15/25 08/04/25 Unknown History pressure mirtazapine 15 mg tablet 15 mg PO BEDTIME PRN rest/ap petite 07/15/25 08/04/25 Unknown History bisacodyl 5 mg tablet,delayed 5 - 10 mg (1 - 2 x 5 mg) PO BID 07/18/25 08/04/25 08/03/25 Rx release (Dulcolax (bisacodyl)) PRN constipation #30 ta bs budesonide-formoterol HFA 80 2 puff inhalation BID 08/04/25 08/03/25 History mcg-4.5 mcg/actuation aerosol inhaler (Symbicort) Allergies Allergy/AdvReac Type Severity Reaction Status Date / Time aspirin Allergy NA Verified 08/04/25 12:12 Penicillins Allergy NA Verified 08/04/25 12:12 Sulfa (Sulfonamide Allergy NA Verified 08/04/25 12:12 Antibiotics) tramadol (From Ultram) Allergy ALGY-Hives Verified 08/04/25 12:12 PFSH Acute 2 PFSH: Medical History Right-sided extracranial carotid artery stenosis Anxiety Chronic low back pain Hypertension Family History Father CAD (coronary artery disease) Mother CAD (coronary artery disease) Hypertension Brother CAD (coronary artery disease) Hypertension Grandmother Stroke Denies family history of Diabetes Cancer Social History (Reviewed 08/04/25 @ 19:36 by Adina Reyes, BI APPLICATION DEVELOPER, READING INTERVENTION TEACHER) Smoking and tobacco/nicotine status: current every day tobacco/nicotine user cigarettes Packs smoked per day: 0.5 Years cigarettes smoked: 55 Alcohol intake: never Substance/Drug Use: never Lives independently: Yes Household members: spouse Housing: House Marital status: Number of children: 1 Pets and animals: No Vitals/I&O/Wt Last Vital Signs Temp 98.1 F 08/04/25 12:08 Pulse 91 08/04/25 18:41 Resp 18 08/04/25 12:08 BP 179/84 08/04/25 18:41 Pulse Ox 92 08/04/25 18:41 O2 Del Method Room Air 08/04/25 18:41 08/04/25 08/04/25 08/04/25 06:59 14:59 22:59 Intake Total 0 / 0 Balance 0 / 0 Weight last 48 hrs Weight 28.576 kg Physical Exam 2 Narrative: HEENT: normocephalic with normal external ears and nonicteric, oral mucosa moist and dentition normal for age, trachea midline with no large masses visualized Heart: RRR, no gallops murmurs or rubs, normal PMI with no thrills Lungs: normal excursions, no loud audible wheezing, no subcutaneous emphysema Abdomen: nondistended, no gross hepatosplenomegaly, no masses, no rigidity or rebound, positive loud borborygmi, very skinny and scaphoid abdomen, slightly tender RLQ and no masses and no rebound. Neuro: nonfocal, ORTIZ, grossly normal sensation Musculoskeletal: good muscle tone, no fasciculations, normal gait Skin: pink warm and dry with no rashes or ecchymosis Vascular: good radial pulses, no ulceration, less than 2 second capillary refill in hand : deferred Data 08/04/25 12:41 08/04/25 12:41 Micro: Microbiology 08/04/25 12:41 Blood Culture - Preliminary Blood SPECIMEN COLLECTED 08/04/25 12:43 Blood Culture - Preliminary Blood SPECIMEN COLLECTED A&P Assessment and plan 1. Small bowel obstruction: Abdomen x-ray; dilated distal small bowel loops with some air noted in the colon, partial small bowel obstruction versus ileus, see full results Abdomen/pelvis CT; twisting of mesenteric vessels in the right lower quadrant resulting in small bowel volvulus, dilated small bowel loops consistent with at least partial obstruction, abdominal aortic aneurysm measuring 1.7 X1 0.6 cm, marked atherosclerotic vascular disease with luminal narrowing of the origin of the celiac axis and SMA, see full results Bowel Rest Avoid NSAIDS KUB every 4 hours initiated in the ED Pain management Intake and output General Surgery consulted, Dr. Chau Miller, recommendations appreciated Conservative management with NG tube placement - CXR; NG tube in adequate position, small bowel distention with air-fluid levels consistent with element of obstruction 2. Volvulus of intestine: As above 3. Hyponatremia: Chronic Sodium 134, chloride 95 IVF Monitoring for dehydration 4. Hypertension: BP 179/84, HR 91 Continue home amlodipine daily BP monitoring 5. COPD (chronic obstructive pulmonary disease): History of nicotine dependence Home inhalers Pulse oximetry Supplemental O2 to keep saturations greater than 92% 6. Weight loss, unintentional: Intake and output Daily weights Supplemental nutrition Dietary consult consideration 7. Hypothyroidism: Continue home levothyroxine 8. Tobacco use disorder: Current daily smoker Nicotine dependence Cessation education 9. Nausea and vomiting: Antiemetics PDMP PDMP Reviewed: Not Reviewed Attestations 2 Medical Necessity Statement*: Patient not expected to stay for greater than 2 midnights. Patient expected to be treated for small bowel obstruction with discharge listed than 2 midnights. Diagnoses Small bowel obstruction K56.609 Volvulus of intestine K56.2 Hyponatremia E87.1 Hypertension I10 COPD (chronic obstructive pulmonary disease) J44.9 Weight loss, unintentional R63.4 Hypothyroidism E03.9 Tobacco use disorder F17.200 Nausea and vomiting R11.2
--- NOTE | 2025-08-04 20:00 | XRR_ITS ---
PROCEDURE INFORMATION: Exam: XR Abdomen Exam date and time: 08/04/2025 8:19 PM Age: 74 years old Clinical indication: Other: F/u sbo; Prior surgery; Surgery date: 6+ months; Surgery type: Appy; 4 hour f/u for sbo gastrograffin trial. ; Additional info: Sbo; Gastrograffin trial; 4hr film TECHNIQUE: Imaging protocol: Radiologic exam of the abdomen. Views: Frontal supine view of the abdomen. 1 View. COMPARISON: CT abdomen pelvis w con* [id number] 08/04/2025 1:16 PM FINDINGS: Gastrointestinal tract: When compared to CT of same day, some contrast material present in the ileum in the right abdomen and pelvis. There remains several loops of gas-filled distended loops of ileum proximal to the site of obstruction in the right mid to upper pelvis just to the right of midline. These measure up to 3.2 cm in diameter. Findings consistent with those of the partial fairly high-grade obstruction. This should be correlated clinically. NG tube remains in place. Contrast seen in the urinary bladder. Bones/joints: Right convexity thoracolumbar scoliosis with degenerative changes. XR/XR KUB portable [id number] IMPRESSION: 1. Contrast material has passed into the ileum in the right abdomen and pelvis. Contrast material has not reached the site of the obstruction. Several loops of air-filled distended loops of small bowel measuring up to 3.2 cm in diameter present between site of obstruction and contrast containing loops. Findings consistent with those of a partial fairly high-grade obstruction but should be correlated clinically.
[2025-08-04] MEDS: HYDROmorphone 0.5 MG/0.5 ML INJ IVP (20:39)
[2025-08-05] VITALS (24 sets, daily range): BP systolic 61–165; BP diastolic 41–77; PULSE 73–128; RESP 14–18; TEMP 36.2–37.2; O2SAT 86–100
--- NOTE | 2025-08-05 | XRR_ITS ---
PROCEDURE INFORMATION: Exam: XR Abdomen Exam date and time: 08/05/2025 12:02 AM Age: 74 years old Clinical indication: Other: Sbo f/u; Prior surgery; Surgery date: 6+ months; Surgery type: Appy; 8 hour f/u sbo gastrograffin trial; Additional info: Sbo; Gastrograffin trial; 8hr film TECHNIQUE: Imaging protocol: Radiologic exam of the abdomen. Views: Frontal supine view of the abdomen. 1 View. COMPARISON: CR (ABDOMEN, ) 08/04/2025 8:19 PM FINDINGS: Tubes, catheters and devices: Feeding tube in the stomach. Gastrointestinal tract: Oral contrast avulsion throughout small bowel. Bones/joints: Unremarkable. XR/XR KUB portable [id number] IMPRESSION: Oral contrast avulsion throughout small bowel.
[2025-08-05] MEDS: HYDROmorphone 0.5 MG/0.5 ML INJ IVP (03:26)
--- NOTE | 2025-08-05 06:00 | XRR_ITS ---
PROCEDURE INFORMATION: Exam: XR Abdomen Exam date and time: 08/05/2025 5:30 PM Age: 74 years old Clinical indication: Abdominal pain; Additional info: Sbo; Gastrograffin trial; 12hr film TECHNIQUE: Imaging protocol: Radiologic exam of the abdomen. Views: Frontal supine view of the abdomen. 1 View. COMPARISON: CR (ABDOMEN, ) 08/05/2025 12:37 PM FINDINGS: Gastrointestinal tract: No definitive colonic contrast. Distribution of contrast appears similar compared to 12:40 p.m.. No definitive antegrade progression of contrast. Multiple dilated segments of small bowel appears similar. Organs: Contrast again noted in the urinary bladder acting systems. Bones/joints: Stable. XR/XR KUB portable [id number] IMPRESSION: Stable radiographic appearance of the abdomen compared to 12:40 p.m. no significant antegrade progression of oral contrast.
[2025-08-05 06:22] LABS: Hematocrit 46.5 % (36-47); Hemoglobin 15.40 g/dL (11.27-16.99); Mean Corpuscular HGB Conc 33.1 g/dL (30-55); Mean Corpuscular Hemoglobin 31.2 pg (27-33); Mean Corpuscular Volume 94.3 fl (85-98); Nucleated Red Blood Cells % 0 %; Platelet Count 243 10^3/cmm (157-399); Red Blood Count 4.93 10^6/uL (3.85-5.65); White Blood Count 4.99 10^3/uL (3.29-11.43)
[2025-08-05 06:40] LABS: Alanine Aminotransferase 9 U/L (0-33); Albumin Level 4.1 g/dL (3.5-5.2); Alkaline Phosphatase 58 U/L (35-105); Anion Gap 21.9 (5-19); Aspartate Amino Transferase 22 U/L (0-32); Blood Urea Nitrogen 29 mg/dL (8-23); Calcium 9.3 mg/dL (8.5-10.5); Carbon Dioxide 23 mmol/L (22-29); Chloride 97 mmol/L (98-107); Globulin 3.1 g/dL (1.3-4.6); Glucose 144 mg/dL (65-115); Magnesium 2.2 mg/dL (1.7-2.3); Osmolality Calculated 292 mOsm/kg (285-295); Potassium 4.9 mmol/L (3.5-5.1); Sodium 137 mmol/L (136-145); Total Protein 7.2 g/dL (6.6-8.7)
--- OUTSIDE RECORDS SUMMARY | 2025-08-05 08:14 | XMS_ITS | Encounter Summary ---
Author Organization [facility] Address [address] [place] [address] Care Team Providers Care Frankfurter Inspector Name Role Phone Curtis Wilkinson DO Primary Care Provider [phone] Encounter Details Date Type Department Care Team (Late st Contact Info) Description 01/29/2016 Ancillary Orders [facility] Admitting [address] [place] [id number] Curtis Wilkinson DO [address] [place] [address] Social History Tobacco Use Types Packs/Day Years Used Date Smoking Tobacco: Never Assessed Comments Unknown Sex and Gender Information Value Date Recorded Sex Assigned at Not on file Legal Sex Female 4:23 AM LAB ASSOCIATE Gender Identity Not on file Sexual Orientation Not on file documented as of this encounter Plan of Treatment Not on file documented as of this encounter Visit Diagnoses Not on filedocumented in this encounter Care Teams Frankfurter Inspector Relationship Specialty Start Date End Date Curtis Wilkinson DO [address] [place], [place] [address] PCP - General Family Practice 09/19/14 documented as of this encounter
--- OUTSIDE RECORDS SUMMARY | 2025-08-05 08:14 | XMS_ITS | Encounter Summary ---
Author Organization [facility] Address [address] [place] [address] Care Team Providers Care Turn Down Attendant Name Role Phone Curtis Wilkinson DO Primary Care Provider [phone] Encounter Details Date Type Department Care Team (Late st Contact Info) Description 12/15/2001 Outpatient Historical [facility] Rheumatology- [facility] [address] [place] [id number] Social History Tobacco Use Types Packs/Day Years Used Date Smoking Tobacco: Never Assessed Comments Unknown Sex and Gender Information Value Date Recorded Sex Assigned at Not on file 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
--- OUTSIDE RECORDS SUMMARY | 2025-08-05 08:14 | XMS_ITS | Clinical Summary ---
Author Organization [facility] Address [address] [address] Phone Care Team Providers Care Deputy Building Guard Name Role Phone Curtis Wilkinson DO Primary Care Provider [phone] Allergies Active Allergy Reactions Criticality Noted Date [...] Active Immunizations Immunization Administration Dates Next Due (YellowPepper)(12 YR UP) COVID-19 VACCINE - EMERGENCY USE AUTHORIZATION, MRNA, [id number](PF) 30 MCG/0.3 ML IM SUSP 11/23/2020,11/02/2020 Influenza [...] on file Legal Sex Female 4:23 AM DIRECTOR OF SOCIAL MEDIA MARKETING Gender Identity Not on file Sexual Orientation Not on file Last Filed Vital Signs Vital Sign Reading Time Taken Comments Blood Pressure 112/80 10/16/2018 3:40 PM DIRECTOR OF SOCIAL MEDIA MARKETING Pulse 80 10/16/2018 3:40 PM DIRECTOR OF SOCIAL MEDIA MARKETING Temperature 36.8 C (98.2 F) 10/16/2018 3:40 PM DIRECTOR OF SOCIAL MEDIA MARKETING Respiratory Rate 18 10/16/2018 3:40 PM DIRECTOR OF SOCIAL MEDIA MARKETING Oxygen Saturation 98% 10/16/2018 3:40 PM DIRECTOR OF SOCIAL MEDIA MARKETING Inhaled Oxygen Concentration - - Weight 39.7 kg (87 lb 9.6 oz) 10/16/2018 1:11 PM DIRECTOR OF SOCIAL MEDIA MARKETING Height 157.5 cm (5' 2 ) 10/16/2018 1:11 PM DIRECTOR OF SOCIAL MEDIA MARKETING Body Mass Index 16.02 10/16/2018 1:11 PM DIRECTOR OF SOCIAL MEDIA MARKETING Plan of Treatment Health Maintenance Due Date [...] (1 - 1-dose 75+ series) 2026 Insurance [facility] MCR Care Teams Deputy Building Guard Relationship Specialty Start Date End Date Curtis Wilkinson DO [address] [place], [place] [id number] PCP - General Family Practice 09/19/14
--- OUTSIDE RECORDS SUMMARY | 2025-08-05 08:14 | XMS_ITS | Encounter Summary ---
Author Organization [facility] Address [address] [place] [address] Care Team Providers Care Roll Clamp Operator Name Role Phone Curtis Wilkinson DO Primary Care Provider [phone] Encounter Details Date Type Department Care Team (Latest Contact Info) Description 06/20/1999 Outpatient Historical [facility] [address] [place] [address] [place] [address] Cervicalgia (Primary Dx); Need vaccination-viral disease Social History Tobacco Use Types Packs/Day Years Used Date Smoking Tobacco: Never Assessed Comments Unknown Sex and Gender Information Value Date Recorded Sex Assigned at Not on file Legal 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
--- OUTSIDE RECORDS SUMMARY | 2025-08-05 08:14 | XMS_ITS | Encounter Summary ---
Author Organization [facility] Address [address] [place] [address] Care Team Providers Care Skidder Runner Name Role Phone Curtis Wilkinson DO Primary Care Provider [phone] Encounter Details Date Type Department Care Team (Late st Contact Info) Description 09/19/2014 Ancillary Orders [facility] Admitting [address] [place] [address] Curtis Wilkinson DO [address] [place] [address] Bronchitis (Primary Dx) Social History Tobacco Use Types Packs/Day Years Used Date Smoking Tobacco: Never Assessed Comments Unknown Sex and Gender Information Value Date Recorded Sex Assigned at Not on file Legal Sex Female 4:23 AM RUBY DEVELOPER Gender Identity Not on file Sexual Orientation Not on file documented as of this encounter Plan of Treatment Not on file documented as of this encounter Results * XR CHEST PA AND LATERAL (09/19/2014 10:51 AM RUBY DEVELOPER) Anatomical Region Laterality Modality Chest Computed Radiogr aphy 09/19/2014 10:4 4 AM RUBY DEVELOPER Narrative 09/19/2014 10:56 AM RUBY DEVELOPER PROCEDURE XR CHEST, 2 views, 19 September [...] chronic documented in this encounter Care Teams Skidder Runner Relationship Specialty Start Date End Date Curtis Wilkinson DO [address] [place] [address] PCP - General Family Practice 09/19/14 documented as of this encounter
--- OUTSIDE RECORDS SUMMARY | 2025-08-05 08:14 | XMS_ITS | Clinical Summary ---
Author Organization [facility] Address [address] [address] Phone Care Team Providers Care Pulmonologist Name Role Phone Jelly Stringer MD Primary Care Provider [phone] Allergies Active Allergy Reactions Criticality Noted Date [...] COVID-19 VACCINE - EMERGENCY USE AUTHORIZATION, MRNA, [id number](PF) 30 MCG/0.3 ML IM SUSP 06/18/2021,11/23/2020,11/02/2020 (Pfizer [...] on file Legal Sex Female 2:09 PM LINING FELLER Gender Identity Not on file Sexual Orientation Not on file Last Filed Vital Signs Vital Sign Reading Time Taken Comments Blood Pressure 112/80 10/16/2018 3:40 PM LINING FELLER Pulse 80 10/16/2018 3:40 PM LINING FELLER Temperature 36.8 C (98.2 F) 10/16/2018 3:40 PM LINING FELLER Respiratory Rate 18 10/16/2018 3:40 PM LINING FELLER Oxygen Saturation - - Inhaled Oxygen Concentration - - Weight 39.7 kg (87 lb 9.6 oz) 10/16/2018 1:11 PM LINING FELLER Height 157.5 cm (5' 2 ) 10/16/2018 1:11 PM LINING FELLER Body Mass Index 16.02 10/16/2018 1:11 PM LINING FELLER Plan of Treatment Health Maintenance Due Date [...] (1 - 1-dose 75+ series) 2026 Insurance [facility] MCR Care Teams Pulmonologist Relationship Specialty Start Date End Date Jelly Stringer MD [address] [facility] [address] [place] [address] PCP - General Family Practice 01/29/22
--- NOTE | 2025-08-05 09:30 | P.PN_ITS ---
Subjective 2 Subjective: Lyndsay Jerome is a 74 year old female with prior medical history of HTN, HLD, COPD, SBO, CVA, chronic low back pain, status post carotid endarterectomy, chronic ear pain, tobacco use disorder, anxiety, emphysema, and vision loss presenting with complaints of abdominal pain. Pain is described as epigastric burning and tenderness. Endorses nausea, vomiting, and unexpected weight loss. Pain is still a 9/10 despite reciving medication in the ED. Nausea still persists despite zofran. Will adjust medications conservatively with attention to age and weight considerations as well as GI considerations. Patient is a full code. In the ED, BP 179/84, HR 91, RR 18, T98.1, O2 92% on room air. WBC 9.07, Hgb 14.9, PLT 230. Potassium 4.8. Sodium 134. Chloride 95. AST/ALT WNL. CRP WNL. CXR; NG tube in adequate position, small bowel distention with air-fluid levels consistent with element of obstruction. Abdomen/pelvis CT; twisting of mesenteric vessels in the right lower quadrant resulting in small bowel volvulus, dilated small bowel loops consistent with at least partial obstruction, abdominal aortic aneurysm measuring 1.7 X1 0.6 cm, marked atherosclerotic vascular disease with luminal narrowing of the origin of the celiac axis and SMA, see full results. Abdomen x-ray; dilated distal small bowel loops with some air noted in the colon, partial small bowel obstruction versus ileus, see full results. 08/05/25: Patient is sitting up in bed r eporting that her pain is still not managed. We were being conservative with 0.5 Dilaudid but will try once dose of morphine to try and get pain under control. Overnight, patient was uncomfortable with her NG tube and pulled it out. Dr. Miller with general surgery was made aware and now patient is going to the OR for assessment. Phosphorus 5.8. Will manage and recheck. Vitals/I&O/Wt Last Vital Signs Temp 98.4 F 08/05/25 11:04 Pulse 86 08/05/25 11:04 Resp 14 08/05/25 11:04 BP 127/70 08/05/25 11:04 Pulse Ox 90 08/05/25 11:04 O2 Del Method Room Air 08/05/25 11:04 O2 Flow Rate 1 08/05/25 08:54 08/04/25 08/05/25 08/05/25 22:59 06:59 14:59 Intake Total 1000 / 1000 Balance 1000 / 1000 Weight last 48 hrs Weight 28.576 kg Weight 28.576 kg Weight 28.576 kg Physical Exam 2 Narrative: HEENT: normocephalic with normal external ears and nonicteric, oral mucosa moist and dentition normal for age, trachea midline with no large masses visualized Heart: RRR, no gallops murmurs or rubs, normal PMI with no thrills Lungs: normal excursions, no loud audible wheezing, no subcutaneous emphysema Abdomen: nondistended, no gross hepatosplenomegaly, no masses, no rigidity or rebound, positive loud borborygmi, very skinny and scaphoid abdomen, slightly tender RLQ and no masses and no rebound. Neuro: nonfocal, ORTIZ, grossly normal sensation Musculoskeletal: good muscle tone, no fasciculations, normal gait Skin: pink warm and dry with no rashes or ecchymosis Vascular: good radial pulses, no ulceration, less than 2 second capillary refill in hand : deferred Data 08/05/25 05:34 08/05/25 05:34 Micro: Microbiology 08/04/25 12:41 Blood Culture - Preliminary Blood SPECIMEN COLLECTED 08/04/25 12:43 Blood Culture - Preliminary Blood SPECIMEN COLLECTED A&P Assessment and plan 1. Small bowel obstruction: Abdomen x-ray; dilated distal small bowel loops with some air noted in the colon, partial small bowel obstruction versus ileus, see full results Abdomen/pelvis CT; twisting of mesenteric vessels in the right lower quadrant resulting in small bowel volvulus, dilated small bowel loops consistent with at least partial obstruction, abdominal aortic aneurysm measuring 1.7 X1 0.6 cm, marked atherosclerotic vascular disease with luminal narrowing of the origin of the celiac axis and SMA, see full results Bowel Rest Avoid NSAIDS KUB every 4 hours initiated in the ED Pain management Intake and output General Surgery consulted, Dr. Chau Miller, recommendations appreciated Initial conservative management with NG tube placement - CXR; NG tube in adequate position, small bowel distention with air-fluid levels consistent with element of obstruction Patient pulled out NG tube overnight on 08/04/2025 Patient is now going to the OR today, 08/05/2025 2. Volvulus of intestine: As above 3. Hyponatremia: Chronic Initial sodium 134, chloride 95 IVF correction Monitoring for dehydration 4. Hypertension: BP 179/84, HR 91 improved to 127/70, HR 86 Continue home amlodipine daily BP monitoring 5. COPD (chronic obstructive pulmonary disease): History of nicotine dependence Home inhalers Pulse oximetry Supplemental O2 to keep saturations greater than 92% 6. Weight loss, unintentional: Intake and output Daily weights Supplemental nutrition Dietary consult consideration 7. Hypothyroidism: Continue home levothyroxine 8. Tobacco use disorder: Current daily smoker Nicotine dependence Cessation education 9. Nausea and vomiting: Antiemetics PDMP PDMP Reviewed: Not Reviewed Attestations 2 Medical Necessity Statement*: Patient not expected to stay for greater than 2 additional midnights. Patient expected to be treated for small bowel obstruction with general surgery with discharge less than 2 midnights. Diagnoses Small bowel obstruction K56.609 Volvulus of intestine K56.2 Hyponatremia E87.1 Hypertension I10 COPD (chronic obstructive pulmonary disease) J44.9 Weight loss, unintentional R63.4 Hypothyroidism E03.9 Tobacco use disorder F17.200 Nausea and vomiting R11.2
--- NOTE | 2025-08-05 09:50 | ECG_ITS ---
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1950 Requested By: Chau Miller Order Number: [id number] Reading MD: DARLEEN FRANKLIN Measurements Intervals Penn Rate: 120 P: 86 WA: 145 QRS: 261 QRSD: 118 T: 78 QT: 329 QTc: 467 Interpretive Statements SINUS TACHYCARDIA INDETERMINATE AXIS LOW QRS VOLTAGE IN PRECORDIAL LEADS [QRS DEFLECTION < 1.0 mV IN CHEST LEADS] RIGHT BUNDLE BRANCH BLOCK [120+ ms QRS DURATION, UPRIGHT V1, 40+ ms S IN I/aVL/V4/V5/V6] LEFT POSTERIOR FASCICULAR BLOCK [QRS AXIS > 109, INFERIOR Q] Compared to ECG 07/15/2025 10:35:39 Low QRS voltage now present Atrial abnormality no longer present Sinus rhythm no longer present Myocardial infarct finding no longer present Electronically Signed On 08-07-2025 23:05:16 [employer] CONTRACT[employer] by DARLEEN FRANKLIN [email or web address]
--- NOTE | 2025-08-05 12:00 | XRR_ITS ---
PROCEDURE INFORMATION: Exam: XR Abdomen Exam date and time: 08/05/2025 12:37 PM Age: 74 years old Clinical indication: Abdominal pain; Acute; Additional info: Sbo TECHNIQUE: Imaging protocol: Radiologic exam of the abdomen. Views: 2 Views. Upright and supine views. COMPARISON: CR XR KUB portable [id number] 08/05/2025 8:[address] abdomen and pelvis dated 08/04/2025. FINDINGS: Gastrointestinal tract: No definite enteric contrast in the colon. There is enteric contrast throughout the dilated small bowel loops. Stable distension of the small bowel loops. Complete small bowel obstruction cannot be excluded. Intraperitoneal space: Normal. No free air. Bones/joints: Unremarkable for age. XR/XR abdomen min 2V [id number] IMPRESSION: Complete small bowel obstruction cannot be excluded. Consider follow-up noncontrast CT abdomen and pelvis.
[2025-08-05] MEDS: HYDROcodone-acetaminophen 5-325 mg Tablet 0.5 TAB PO (13:44)
--- NOTE | 2025-08-05 14:43 | PC.SOCIAL ---
*IMM* Patient received a copy of the important message from Medicare. Copy initialled and dated in chart.
--- NOTE | 2025-08-05 16:00 | XRR_ITS ---
PROCEDURE INFORMATION: Exam: XR Abdomen Exam date and time: 08/05/2025 8:54 AM Age: 74 years old Clinical indication: Other: Sbo; Additional info: Sbo; Gastrograffin trial; 24hr film TECHNIQUE: Imaging protocol: Radiologic exam of the abdomen. Views: Frontal supine view of the abdomen. 1 View. COMPARISON: CR (ABDOMEN, ) 08/05/2025 12:02 AM FINDINGS: Gastrointestinal tract: There is enteric contrast throughout diffusely dilated small bowel loops throughout the abdomen. There appears to be a small amount of contrast in the hepatic flexure of the right colon. Bones/joints: Unremarkable. XR/XR KUB portable [id number] IMPRESSION: Oral contrast throughout dilated small bowel loops. There appears to be a small amount of contrast in the hepatic flexure of the right colon. This can be confirmed with follow-up noncontrast CT abdomen and pelvis, as indicated.
--- NOTE | 2025-08-05 17:51 | W.PM.OPSUD ---
Surgery/Procedure H&P Update DATE OF PROCEDURE: August 05, 2025 DATE H&P PERFORMED: 08/04/25 CHANGES TO PREVIOUS DOCUMENTATION: none PREOP DIAGNOSIS: small bowel obstruction PRIMARY INDICATION FOR PROCEDURE: persistant partial SBO PLANNED PROCEDURE: Operation Date: 08/05/25 19:00 Proposed Procedures p Exploratory Laparotomy Exploration Laparotomy(Not Applicable) - Chau Miller MD
--- NOTE | 2025-08-05 18:50 | P.ANESASSM_ITS ---
Pre-Anesthetic Assessment Height/Weight: Height 1.57 m Weight 28.576 kg Temp Pulse Resp BP Pulse Ox O2 Del Method O2 Flow Rate 99.0 F 128 H 18 143/70 99 Nasal Cannula 2 08/05/25 18:00 08/05/25 18:00 08/05/25 18:00 08/05/25 18:00 08/05/25 18:00 08/05/25 18:00 08/05/25 18:00 Preop Diagnosis: small bowel obstruction Operation Date: 08/05/25 19:00 Proposed Procedures p Exploratory Laparotomy Exploration Laparotomy(Not Applicable) - Chau Miller MD Familial anesthetic complications: none Was Beta Chan taken within 24 hours: N/A Was Clonidine taken within 24 hours: N/A Last intake: Intake Last Liquid Date 08/04/25 Last Liquid Time 14:00 Last Solid Date 08/02/25 Last Solid Time 18:00 Exam alert, oriented x 3, clear to auscultation bilaterally and regular rate & rhythm Pulmonary Chronic Obstructive Pulmonary Disease CV/HEM Hypertension Musc/skel cachexia Neuropsych Cerebrovascular Accident Anesthetic Plan ASA status: 4E Anesthesia: General Risk of > 500 ml blood loss (7ml/kg in children): No Medications/Allergies Home Medications ?Medication ?Instructions ?Recorded ?Confirmed ?Last Taken ?Type amlodipine 5 mg tablet 5 mg PO DAILY high blood pre ssure 10/19/24 08/04/25 08/03/25 Rx #90 tabs diazepam 5 mg tablet 5 mg PO TID PRN sleep 30 day s #90 02/10/25 08/04/25 08/03/25 Rx tabs hydrocodone 5 mg-acetaminophen 325 0.5 tab PO Q6H PRN Moderate Pain 05/17/25 08/04/25 Unknown Rx mg tablet 30 days #60 tabs ipratropium bromide 0.02 % 2.5 ml inhalation QID PRN C OPD 05/26/25 08/04/25 08/03/25 Rx solution for inhalation #150 mL ipratropium bromide 17 2 puff inhalation QID #12.9 grams 05/26/25 08/04/25 Unknown Rx mcg/actuation HFA aerosol inhaler (Atrovent HFA) metoprolol tartrate 50 mg tablet 25 mg PO BID PRN high blood 07/15/25 08/04/25 Unknown History pressure mirtazapine 15 mg tablet 15 mg PO BEDTIME PRN rest/ap petite 07/15/25 08/04/25 Unknown History bisacodyl 5 mg tablet,delayed 5 - 10 mg (1 - 2 x 5 mg) PO BID 07/18/25 08/04/25 08/03/25 Rx release (Dulcolax (bisacodyl)) PRN constipation #30 ta bs budesonide-formoterol HFA 80 2 puff inhalation BID 08/04/25 08/03/25 History mcg-4.5 mcg/actuation aerosol inhaler (Symbicort) Allergies Allergy/AdvReac Type Severity Reaction Status Date / Time aspirin Allergy NA Verified 08/04/25 12:12 Penicillins Allergy NA Verified 08/04/25 12:12 Sulfa (Sulfonamide Allergy NA Verified 08/04/25 12:12 Antibiotics) tramadol (From UltraFigma) Allergy ALGY-Hives Verified 08/04/25 12:12 Current Medications Generic Name Dose Route Start Last Admin Trade Name Freq PRN Reason Stop Dose Admin Hydrocodone Bitart/Acetaminophen 0.5 tab 08/05/25 13:26 08/05/25 13:44 Hydrocodone-Acetaminophen 5-325 Mg Tablet PO 0.5 tab Q8H PRN Administration MODERATE PAIN Albuterol Sulfate 2.5 mg 08/05/25 02:00 08/05/25 13:45 Albuterol 2.5 Mg/0.5 Ml Neb INHALATION Not Given Q6H.RESP TOÑO Amlodipine Besylate 5 mg 08/05/25 05:00 08/05/25 04:39 Amlodipine 5 Mg Tablet PO Not Given DAILY TOÑO Budesonide 0.5 mg 08/05/25 08:00 08/05/25 09:07 Budesonide 0.5 Mg/2 Ml Neb INHALATION Not Given BID.RESPIRATORY TOÑO Calcium Acetate 1,334 mg 08/05/25 12:00 08/05/25 14:34 Calcium Acetate 667 Mg Capsule PO 1,334 mg TIDWM TOÑO Administration Hydromorphone HCl 0.5 mg 08/04/25 20:53 08/05/25 03:26 Hydromorphone 0.5 Mg/0.5 Ml Inj IVP 0.5 mg Q6H PRN Administration PAIN Lactated Ringer's 1,000 mls @ 100 mls/hr 08/05/25 07:15 08/05/25 09:19 Lactated Ringers IV 100 mls/hr .Q10H TOÑO Administration Ipratropium [place] 0.5 mg 08/04/25 20:32 08/05/25 03:04 Ipratropium 0.5 Mg/2.5 Ml Neb INHALATION 0.5 mg QID PRN Administration COPD Prochlorperazine Edisylate 5 mg 08/04/25 20:24 08/05/25 09:20 Prochlorperazine 10 Mg/2 Ml Inj IVP 5 mg Q6H PRN Administration NAUSEA PFSH Anesthesia Medical History (Updated 08/04/25 @ 19:44 by YOVANI Quezada, [employer]) Right-sided extracranial carotid artery stenosis Anxiety Chronic low back pain Hypertension Family History Father CAD (coronary artery disease) Mother CAD (coronary artery disease) Hypertension Brother CAD (coronary artery disease) Hypertension Grandmother Stroke Denies family history of Diabetes Cancer Social History Smoking and tobacco/nicotine status: current every day tobacco/nicotine user cigarettes Packs smoked per day: 0.5 Years cigarettes smoked: 55 Alcohol intake: never Substance/Drug Use: never Lives independently: Yes Household members: spouse Housing: House Marital status: Number of children: 1 Pets and animals: No Data Anesthesia 08/05/25 05:34 08/05/25 05:34 Short CBC 08/04/25 08/05/25 Range/Units 12:41 05:34 WBC 9.07 4.99 (3.29-11.43) 10^3/uL Hgb 14.90 15.40 (11.27-16.99) g/dL Hct 45.9 46.5 (36-47) % MCV 95.0 94.3 (85-98) fl Plt Count 230 243 (157-399) 10^3/cmm Neut % (Auto) 75.8 78.4 % Neut # (Auto) 6.88 3.91 (1.8-7.7) 10^3/uL BMP 08/04/25 08/05/25 12:41 05:34 Sodium 134 L 137 Potassium 4.8 4.9 Chloride 95 L 97 L Carbon Dioxide 28 23 BUN 21 29 H Creatinine 0.7 1.0 H Glucose 111 144 H Calcium 9.8 9.3 Liver Function 08/04/25 08/05/25 Range/Units 12:41 05:34 Total Bilirubin 0.7 0.7 (0.15-1.2) mg/dL AST 26 22 (0-32) U/L ALT 12 9 (0-33) U/L Alkaline Phosphatase 63 58 (35-105) U/L Albumin 4.3 4.1 (3.5-5.2) g/dL Urine 08/04/25 Range/Units 13:05 Urine Color Yellow (Yellow) Urine Appearance Clear (CLEAR) Urine pH 7.0 (5-7) Ur Specific Carey 1.016 (1.005-1.030) Urine Protein Trace A (Negative) Urine Glucose (UA) Negative (Normal) Urine Ketones Trace (Negative) Urine Nitrate Negative (Negative) Urine Bilirubin Negative (Negative) Ur Leukocyte Esterase 1+ A (Negative) Urine RBC 0-2 (0-2) /hpf Urine WBC 11-20 H (0-5) /hpf Coags 08/04/25 12:41 C-Reactive Protein 3.0 ABG 08/05/25 19:50 Specimen Type Arterial Sample Site Brachial, right ABG pH 7.37 ABG pCO2 42.1 ABG pO2 > 556.0 H ABG PO2/FiO2 Ratio 556.000 ABG HCO3 24.3 ABG O2 Saturation > 99.1 ABG Base Excess -1.1 A-a O2 Gradient 8.4 O2 Delivery Device Vent FiO2 100.0 Microbiology 08/04/25 12:41 Blood Culture - Preliminary Blood NEGATIVE TO DATE 08/04/25 12:43 Blood Culture - Preliminary Blood NEGATIVE TO DATE Cardiac Studies: 2 Echocardiogram 04/22/22
[2025-08-05 20:06] LABS: ABG PCO2 42.1 mmHg (35-45); ABG PH Result 7.37 (7.35-7.45); Alveolar-Arterial Oxygen Gradi 8.4 mmHg (5-10); Arterial Blood Gas Hematocrit 41.9 % (37-47); Blood Gas Allen Test Pos; Blood Gas Operator Identificat BD; Blood Gas Sample Site Brachial, right; Blood Gas Sample Type Arterial; Carboxyhemoglobin 0.8 %THgb (0.4-20.1); Glucose Level-ABG 169.0 mg/dL (70-115); HCO3 ABG 24.3 mmol/L (22-26); Ionized Calcium Level - ABG 1.2 mmol/L (1.1-1.4); Methemoglobin 1.2 % (0.4-1.5); Oxygen Saturation ABG > 99.1; Potassium Level - ABG 3.3 mmol/L (3.5-5.0); Sodium Level - ABG 138.0 mmol/L (131-143)
--- NOTE | 2025-08-05 20:25 | PC.NURSE ---
updated patient's daughter about surgical progress
--- NOTE | 2025-08-05 20:56 | XRR_ITS ---
PROCEDURE INFORMATION: Exam: XR Chest Exam date and time: 08/05/2025 7:56 PM Age: 74 years old Clinical indication: Shortness of breath; Acute hypoxia during exploratory laparotomy in progress. TECHNIQUE: Imaging protocol: Radiologic exam of the chest. Views: 1 view. COMPARISON: CR (CHEST, ) 08/04/2025 3:18 PM FINDINGS: Tubes, catheters and devices: A nasogastric tube is in place with the distal tip overlying the stomach, in radiographically appropriate position. Lungs: No pulmonary consolidation. Pulmonary hyperinflation. Pleural spaces: No pleural effusion or pneumothorax. Heart/Mediastinum: Heart size is within normal limits. Bones/joints: No acute osseous abnormalities are seen. XR/XR chest 1V portable [id number] IMPRESSION: 1. Nasogastric tube in radiographically appropriate position.
[2025-08-05] MEDS: norepinephrine 4 MG/250 ML BAG 7.5 MG IV (21:10)
--- NOTE | 2025-08-05 21:15 | PC.NURSE ---
Levophed Patient arrived to unit from OR at 2102. Dr. Miller at bedside; orders received to keep NG tube to low intermittent suction, administer LR at 100 ml/hr, and call hospitalist for sedation orders. Patient's blood pressure 91/46. Dr. Santiago contacted; orders received for levophed per protocol as well as propofol for sedation. Followup blood pressure 61/41. Dr. Santiago notified; order received for fentanyl drip. Propofol not initiated due to vasopressor requirement.
--- NOTE | 2025-08-05 21:15 | ANE.PACU2 ---
Inpatient post-anesthesia follow up: Airway intact: No Vital signs: Temperature 98.3 F Pulse Rate 113 Respiratory Rate 16 Blood Pressure 106/71 Pulse Oximetry 100 Oxygen Delivery Me thod Mechanical Ventila tion Oxygen Flow Rate 2 Fraction of Inspir ed Oxygen 40 Hydration adequate: Yes Nausea and vomiting: No Pain level: 1 Mental status: Altered Additional Comments: inutbated and sedated
[2025-08-05] MEDS: fentaNYL 1,000 MCG/100 ML BAG 2.5 MCG IV (21:30)
--- NOTE | 2025-08-05 21:47 | PM.OP ---
Operative Report Date of procedure: August 05, 2025 Pre-op diagnosis: Volvulus and SBO Post-op diagnosis: same Post-op findings: Volvulus of small bowel involving distal 75 cm of ileum with adhesions Procedure done: exploratory lap and lysis of adhesions, detorsing of volvulus and decompression of distended bowel by manually milking of intestinal contents retrograde into stomach and distally into colon Specimens removed/disposition: none Surgeon: Chau Miller MD Estimated blood loss: minimal Brief History: Patient who had open appendectomy when she was 15-16yo and came in 3 weeks ago with partial SBO. She came back in with recurrent SBO and abdominal pain worsened and family agreed to proceed with ex lap. Risks involved include bleeding, infection, cardiopulmonary problems, leakage, more surgery, perforation, injury to abdominal contents, missed lesion, aspiration. Procedure: After adequate anesthesia, abdomen was prepped and draped in sterile fashion. Midline abdominal incision was made and abdominal cavity was entered. There was some non bloody clear fluid in pelvis. Small bowel was dilated but appeared viable. There was some ecchymosis of wall of distal 75 cm of ileum. There was twisting of bowel around mesentery and some bowel wall was adherent to the base of the mesentery preventing spontaneous de torsing of the bowel. THe adhesions were old. These adhesions had to be freed up to allow de torsing of bowel. Patient is very thin with weight of 63 pounds stable for years. The bowel was adherent to the peritoneum over the mesenteric vessels with no protective fat layer. Care was taken to avoid injury to the mesenteric vessel and the bowel wall. A couple of arease about 1 cm of de serosalization of small bowel were re enforced with Lembert 4-0 Vicryl sutures. As much of the succus of intestine and air was milked retrograde into NG in stomach with tip in antrum and distally into bowel. During this time and anesthesiologist stated the patients O2 sat fell into 70's and felt to be possibly from mucus plugging and eventually felt to be due to malfunctioning oxygen sat machine. A CXR was done showing no PTX. No evidence of aspiration was noted. During this time patient was started on vasopressor drip and distal 75 cm of ileum appeared slightly blue dusky. It pinked up a bit after irrigation of warm saline. It was felt at this time that it would be prudent to place Abthera wound vac and re assess bowel in a couple of days. The GB was distended but did not appear inflamed. The liver was not cirrhotic but had a pale whitish sheen and not normal pink. Abthera was attached to suction pump and patient was taken back to ICU on vent.
--- NOTE | 2025-08-05 22:00 | PC.NURSE ---
Addendum entered by Ida Joseph RN 08/06/25 08:15: Increasing HR also discussed. Original Note: Vasopressin Dr. Santiago notified of rapid decrease in patient's blood pressure and subsequent rapid levophed increases. Order received to initiate titratable vasopressin as needed.
[2025-08-06] VITALS (38 sets, daily range): BP systolic 76–143; BP diastolic 52–93; PULSE 112–133; RESP 15–16; TEMP 36.1–37.7; O2SAT 92–100
[2025-08-06] MEDS: norepinephrine 4 MG/250 ML BAG 75 MG IV ×2 (00:49→03:54)
[2025-08-06 01:11] LABS: ABG PCO2 44.8 mmHg (35-45); ABG PH Result 7.28 (7.35-7.45); Alveolar-Arterial Oxygen Gradi 11.4 mmHg (5-10); Arterial Blood Gas Hematocrit 38.6 % (37-47); Blood Gas Allen Test Pos; Blood Gas Operator Identificat BD; Blood Gas Sample Site Brachial, right; Blood Gas Sample Type Arterial; Blood Gas Tidal Volume 0.32; Carboxyhemoglobin 1.0 %THgb (0.4-20.1); Glucose Level-ABG 109.0 mg/dL (70-115); HCO3 ABG 21.2 mmol/L (22-26); Ionized Calcium Level - ABG 1.2 mmol/L (1.1-1.4); Methemoglobin 1.1 % (0.4-1.5); Oxygen Saturation ABG 93.1; PEEP 6.0 cmH20; PO2 ABG 69.5 mmHg (80.0-100.0); PO2 FiO2 Ratio Arterial Blood 231; Potassium Level - ABG 3.9 mmol/L (3.5-5.0); Sodium Level - ABG 137.0 mmol/L (131-143)
[2025-08-06] MEDS: vasopressin 40 UNIT/100 ML PREMIX IV (01:19)
--- NOTE | 2025-08-06 01:35 | PC.NURSE ---
ABG Dr. Santiago notified of patient's ABG results: PH 7.28, bicarb level 21.2, with a base excess of -5.4. Order received for a stat BMP.
--- NOTE | 2025-08-06 02:25 | XRR_ITS ---
PROCEDURE INFORMATION: Exam: XR Chest Exam date and time: 08/06/2025 2:27 AM Age: 74 years old Clinical indication: Other vascular access device placement or adjustment; Central line, non-tunnelled; Check S/P RT sided central line placement. Intubated. ; Additional info: Check central line plcement TECHNIQUE: Imaging protocol: Radiologic exam of the chest. Views: 1 view. COMPARISON: CR XR chest 1V portable [id number] 08/05/2025 7:56 PM FINDINGS: Tubes, catheters and devices: Right central venous catheter tip terminates at the superior cavoatrial junction. Unchanged enteric tube. Lungs: Emphysema. No focal consolidation. Pleural spaces: No sizable pleural effusion or pneumothorax. Heart/Mediastinum: No cardiomegaly. Bones/joints: Unremarkable. XR/XR chest 1V portable [id number] IMPRESSION: Right central venous catheter tip terminates at the superior cavoatrial junction.
--- NOTE | 2025-08-06 02:30 | PC.NURSE ---
Central Line Dr. Santiago updated on patient vital signs as well as vasopressor requirements. Order received for central line insertion.
--- NOTE | 2025-08-06 02:46 | PM.CCN ---
Critical Care Event Note Was consulted by the hospitalist service for emergent placement of central line. Patient had earlier today undergone exploratory laparotomy and is hypotensive. Not able to deliver pressors with current access. Family has given permission to proceed with the central line. Critical Care Time Code activated: No Critical Care Time (min): 0 Procedures Central Line Placement^ Right SC: Time out performed: Yes Patient placed on monitor/pulse ox: Yes MD prep: mask, gown and gloves Central line prep: Chlorhexidine scrub Local anesthesia used: lidocaine 1% Amount of anesthesia used (ml): 4 Ultrasound used for placement: Yes Central line lumen inserted: triple Post procedure: sutured in place, good blood return, all ports aspirated, flushed, capped and sterile dressing applied Post procedure x-ray: tip of catheter in good position and no pneumothorax seen Patient tolerated procedure: well Complications: none Coding Level of Care Code Acute Code for Chg Fwronan
[2025-08-06 02:52] LABS: Anion Gap 15.3 (5-19); Blood Urea Nitrogen 31 mg/dL (8-23); Calcium 7.8 mg/dL (8.5-10.5); Carbon Dioxide 21 mmol/L (22-29); Chloride 105 mmol/L (98-107); Glucose 121 mg/dL (65-115); Osmolality Calculated 292 mOsm/kg (285-295); Potassium 4.3 mmol/L (3.5-5.1); Sodium 137 mmol/L (136-145)
[2025-08-06 04:44] LABS: ABG PCO2 42.4 mmHg (35-45); ABG PH Result 7.26 (7.35-7.45); Arterial Blood Gas Hematocrit 37.8 % (37-47); Blood Gas Allen Test Pos; Blood Gas Operator Identificat BD; Blood Gas Sample Site Brachial, left; Blood Gas Sample Type Arterial; Carboxyhemoglobin 0.7 %THgb (0.4-20.1); Glucose Level-ABG 106.0 mg/dL (70-115); HCO3 ABG 19.0 mmol/L (22-26); Ionized Calcium Level - ABG 1.1 mmol/L (1.1-1.4); Methemoglobin 1.1 % (0.4-1.5); Oxygen Saturation ABG 97.3; PO2 ABG 97.8 mmHg (80.0-100.0); Potassium Level - ABG 4.4 mmol/L (3.5-5.0); Sodium Level - ABG 138.0 mmol/L (131-143)
[2025-08-06 04:45] LABS: Alveolar-Arterial Oxygen Gradi 17.2 mmHg (5-10); Blood Gas Tidal Volume 0.34; PEEP 6.0 cmH20; PO2 FiO2 Ratio Arterial Blood 244
[2025-08-06] MEDS: pantoprazole 40 mg SDV IVP (04:46)
[2025-08-06 04:56] LABS: Hematocrit 36.8 % (36-47); Hemoglobin 11.60 g/dL (11.27-16.99); Mean Corpuscular HGB Conc 31.5 g/dL (30-55); Mean Corpuscular Hemoglobin 31.2 pg (27-33); Mean Corpuscular Volume 98.9 fl (85-98); Nucleated Red Blood Cells % 0.2 %; Platelet Count 166 10^3/cmm (157-399); Red Blood Count 3.72 10^6/uL (3.85-5.65); White Blood Count 8.29 10^3/uL (3.29-11.43)
[2025-08-06 05:14] LABS: Alanine Aminotransferase 13 U/L (0-33); Albumin Level 2.4 g/dL (3.5-5.2); Alkaline Phosphatase 29 U/L (35-105); Anion Gap 14.5 (5-19); Aspartate Amino Transferase 31 U/L (0-32); Blood Urea Nitrogen 27 mg/dL (8-23); Calcium 7.3 mg/dL (8.5-10.5); Carbon Dioxide 20 mmol/L (22-29); Chloride 107 mmol/L (98-107); Globulin 1.9 g/dL (1.3-4.6); Glucose 109 mg/dL (65-115); Osmolality Calculated 290 mOsm/kg (285-295); Potassium 4.5 mmol/L (3.5-5.1); Sodium 137 mmol/L (136-145); Total Protein 4.3 g/dL (6.6-8.7)
[2025-08-06 05:18] LABS: Magnesium 1.9 mg/dL (1.7-2.3)
--- NOTE | 2025-08-06 05:23 | PC.NURSE ---
Bicarb Drip Dr. Santiago at bedside; ABG, vasopressors, as well as vital signs discussed. Orders received to start a a bicarb drip 150 meq in D5W at 75 ml/hr, discontinue LR, obtain a lactic acid level, and wean levophed drip prior to weaning vasopressin.
[2025-08-06] MEDS: fentaNYL 1,000 MCG/100 ML BAG 12.5 MCG IV (05:40)
[2025-08-06] MEDS: metroNIDAZOLE IV 500 MG/100 ML PREMIX 100 MG IV (05:49)
[2025-08-06 05:53] LABS: Lactate (Lactic Acid level) 3.1 mmol/L (0.5-2.2)
--- NOTE | 2025-08-06 07:30 | PC.NURSE ---
Addendum entered by Keiry Tobin RN 08/06/25 07:31: Propofol waste witnessed with EAMON Quesada. Original Note: Propofol Waste 100 ml propofol bottle spiked earlier in the shift for sedation yet not initiated due to vasopressor requirements. Propofol wasted with EAMON Ricci.
[2025-08-06] MEDS: norepinephrine 4 MG/250 ML BAG 52.5 MG IV (07:36)
--- NOTE | 2025-08-06 08:55 | P.PN_ITS ---
Subjective 2 Subjective: 74-year-old female current SBO, [place] sh[place] Came in with SBO, volvulus, status post ex lap and lysis of adhesions, detorsion of volvulus and decompression distended bowel by manually milking of intestinal contents retrograde into stomach and distally into colon Became hypotensive in the OR, started on vasopressor. Patient was unstable, placed on ABThera wound VAC and sent to ICU. Distended gallbladder, no inflammation. No cirrhosis. Patient intubated Heart rate has been stable after resuscitation down to 124-113 this a.m. he 106/71, saturating 100%. FiO2 40, minimal settings Was able to de-escalate Levophed overnight from 20 mcg to 12 mcg/min. With vasopressin. On sedation with propofol and fentanyl GI antibiotic coverage with Cipro 400 mg IV every 12, Flagyl IV On bicarb drip, mild acidosis. Lactate 3.1 WBC 8.29, afebrile ABG base excess of -7.8 showed more significant metabolic acidosis, probably due to declining lactate after IV fluid resuscitation K+ normal Mild DESMOND, possibly shock versus prerenal Hypoalbuminemia, after large-volume expansion Elevated Phos decreases likely feeding Continue vent, continue sedation, continue to wean off pressors. Patient is volume resuscitated. Not septic. Supportive measures. Vitals/I&O/Wt Last Vital Signs Temp 98.3 F 08/06/25 08:00 Pulse 113 H 08/06/25 08:00 Resp 16 08/06/25 07:59 BP 106/71 08/06/25 08:00 Pulse Ox 100 08/06/25 08:00 O2 Del Method Mechanical Ventilation 08/06/25 07:59 O2 Flow Rate 2 08/05/25 18:00 FiO2 40 08/06/25 07:59 08/05/25 08/06/25 08/06/25 22:59 06:59 14:59 Intake Total 1208.875 / 2208.875 1799.575 / 4008.450 103.675 / 103.675 Output Total 575 / 575 Balance 1208.875 / 2208.875 1224.575 / 3433.450 103.675 / 103.675 Weight last 48 hrs Weight 31.5 kg Weight 28.576 kg Weight 28.576 kg Weight 28.576 kg Physical Exam 2 Narrative: HEENT: normocephalic with normal external ears and nonicteric, sedated on mechanical ventilation. Heart: RRR, no gallops murmurs or rubs, normal PMI with no thrills Lungs: normal excursions, no loud audible wheezing, no subcutaneous emphysema Abdomen: Midline incision present, wound VAC in place. No drainage, no erythema. Neuro: nonfocal, ORTIZ, grossly normal sensation. Retracts to pain Musculoskeletal: good muscle tone, no fasciculations, normal gait Skin: pink warm and dry with no rashes or ecchymosis Vascular: good radial pulses, no ulceration, less than 2 second capillary refill in hand : deferred Urinary Catheter Management: Sifuentes: Cath Placed During This Visit: yes Reason for Continuing Indwelling Catheter: Accurate Measurement of Urinary Output in Critically Ill Patients Urinary Catheter Date of Insertion: 08/05/25 Urinary Catheter Time of Insertion: 19:07 Data 08/06/25 04:19 08/06/25 04:19 Micro: Microbiology 08/04/25 12:41 Blood Culture - Preliminary Blood NEGATIVE TO DATE 08/04/25 12:43 Blood Culture - Preliminary Blood NEGATIVE TO DATE A&P Assessment and plan 1. Small bowel obstruction: Abdomen x-ray; dilated distal small bowel loops with some air noted in the colon, partial small bowel obstruction versus ileus, see full results Abdomen/pelvis CT; twisting of mesenteric vessels in the right lower quadrant resulting in small bowel volvulus, dilated small bowel loops consistent with at least partial obstruction, abdominal aortic aneurysm measuring 1.7 X1 0.6 cm, marked atherosclerotic vascular disease with luminal narrowing of the origin of the celiac axis and SMA, see full results Bowel Rest Avoid NSAIDS KUB every 4 hours initiated in the ED Pain management Intake and output General Surgery consulted, Dr. Chau Miller, recommendations appreciated Initial conservative management with NG tube placement - CXR; NG tube in adequate position, small bowel distention with air-fluid levels consistent with element of obstruction Patient pulled out NG tube overnight on 08/04/2025 Patient is now going to the OR today, 08/05/2025 Patient is postop day 1 exploratory laparotomy with open incision, wound VAC placed. Had a complication to surgery with acute hypoxia, is supported by pressors and IV fluids, but has been stable overnight based on labs and recent ABG. Shows slight metabolic acidosis. 2. Volvulus of intestine: As above 3. Hyponatremia: Chronic Initial sodium 134, chloride 95 IVF correction Monitoring for dehydration 4. Hypertension: 5. COPD (chronic obstructive pulmonary disease): History of nicotine dependence Home inhalers Pulse oximetry Supplemental O2 to keep saturations greater than 92% 6. Weight loss, unintentional: Intake and output Daily weights Supplemental nutrition Dietary consult consideration 7. Hypothyroidism: Continue home levothyroxine 8. Tobacco use disorder: Current daily smoker Nicotine dependence Cessation education 9. Nausea and vomiting: Antiemetics PDMP PDMP Reviewed: Not Reviewed Attestations 2 Medical Necessity Statement*: Patient not expected to stay for greater than 2 additional midnights. Patient expected to be treated for small bowel obstruction with general surgery with discharge greater than 2 midnights Coding Level of Care Code Critical Care >/= 30 minutes Critical care time (in minutes): 42 The high probability of a clinically significant, sudden or life threatening deterioration, as referenced in this documentation, required my full and direct attention, intervention and personal management. The critical care time shown is in addition to time spent performing any reported separately billable procedures and includes the following: [x] Data and vital sign review and interpretation [x ] Patient assessment, examination and intervention [x] Medication orders and management [x] Patient/Family updates as able [x] Care Coordination and Documentation. Diagnoses Small bowel obstruction K56.609 Volvulus of intestine K56.2 Hyponatremia E87.1 Hypertension I10 COPD (chronic obstructive pulmonary disease) J44.9 Weight loss, unintentional R63.4 Hypothyroidism E03.9 Tobacco use disorder F17.200 Nausea and vomiting R11.2
--- NOTE | 2025-08-06 09:56 | PC.NURSE ---
Patients sister took cellphone and leather goods i assembler.
--- NOTE | 2025-08-06 12:22 | P.DES_ITS ---
Discharge Providers DDS Date of Admission: 08/05/25 09:30 Date Summary Completed: 08/06/25 Attending Provider at Admission: Darinel Jovel MD Time of : 11:48 Attending Provider at Discharge: Darinel Jovel MD Pronouncing Clinician: Darinel Jovel Consults: Chau Miller MD Primary Care Provider: Jelly Stringer MD DS Diagnoses Probable Cause of Mesenteric ischemia due to arterial insufficiency Hospital Diagnoses 1. Small bowel obstruction: 2. Volvulus of intestine: 3. Hyponatremia: 4. Essential hypertension: Qualifiers: Hypertension type: essential hypertension Qualified Code(s): I10 - Essential (primary) hypertension 5. COPD (chronic obstructive pulmonary disease): 6. Weight loss, unintentional: 7. Hypothyroidism: 8. Tobacco use disorder: 9. Nausea and vomiting: Reason for Visit Reason for Visit abd pain Brief History: Lyndsay Jerome is a 74 year old female with prior medical history of HTN, HLD, COPD, SBO, CVA, chronic low back pain, status post carotid endarterectomy, chronic ear pain, tobacco use disorder, anxiety, emphysema, and vision loss presenting with complaints of abdominal pain. Pain is described as epigastric burning and tenderness. Found to have twisting of the mesenteric vessels on abdominal CT in the right lower quadrant resulting in small bowel volvulus. Patient also had severe atherosclerotic vascular disease of the origin of the celiac axis and SMA. Patient had recurrent SBO's and the family agreed to proceed with ex lap per general surgery. See surgery note below: Midline abdominal incision was made and abdominal cavity was entered. There was some non bloody clear fluid in pelvis. Small bowel was dilated but appeared viable. There was some ecchymosis of wall of distal 75 cm of ileum. There was twisting of bowel around mesentery and some bowel wall was adherent to the base of the mesentery preventing spontaneous de torsing of the bowel. THe adhesions were old. These adhesions had to be freed up to allow de torsing of bowel. Patient is very thin with weight of 63 pounds stable for years. The bowel was adherent to the peritoneum over the mesenteric vessels with no protective fat layer. Care was taken to avoid injury to the mesenteric vessel and the bowel wall. A couple of arease about 1 cm of de serosalization of small bowel were re enforced with Lembert 4-0 Vicryl sutures. As much of the succus of intestine and air was milked retrograde into NG in stomach with tip in antrum and distally into bowel. During this time and anesthesiologist stated the patients O2 sat fell into 70's and felt to be possibly from mucus plugging and eventually felt to be due to malfunctioning oxygen sat machine. A CXR was done showing no PTX. No evidence of aspiration was noted. During this time patient was started on vasopressor drip and distal 75 cm of ileum appeared slightly blue dusky. It pinked up a bit after irrigation of warm saline. It was felt at this time that it would be prudent to place Abthera wound vac and re assess bowel in a couple of days. The GB was distended but did not appear inflamed. The liver was not cirrhotic but had a pale whitish sheen and not normal pink. Abthera was attached to suction pump and patient was taken back to ICU on vent. Dictated By: Chau Miller MD Summary Date and Time of Date of : 08/06/25 Time of : 11:48 Summary Summary: Patient was monitored on the vasopressor drips in ICU overnight, appeared relatively stable, see progress note from 8:55 this morning. Per nursing staff, patient became pulseless was noted to have asystole on the monitoring and evaluation advisor. VIBHA ZARATE was called, CPR was initiated. After multiple rounds, patient failed to produce any pulse, and no rhythm was found on the monitor. Family was called during this period, the patient's has been determi diana that it would be in the patient's interest to be AND. CPR was stopped. Patient remained pulseless, and no rhythm showed on the monitoring and evaluation advisor. Patient nonresponsive. Time of was called at 11:48 AM. Additional Data Confirmation of as documented by pronouncing clinician: no pulse and no respirations Family: at bedside and contacted Additional persons at bedside: nursing staff Attending/PCP notified?: I am attending Was code activated?: Yes Autopsy requested?: No Discharge Plan Discharge Patient Disposition: DS Attestations Time Spent in /Discharge Care*: greater than 30 min Quality - AMI: AMI present?: No Quality - Stroke: CVA present?: No Quality - VTE: VTE present?: No Coding Level of Care Code Critical Care >/= 30 minutes Critical care time (in minutes): 35 The high probability of a clinically significant, sudden or life threatening deterioration, as referenced in this documentation, required my full and direct attention, intervention and personal management. The critical care time shown is in addition to time spent performing any reported separately billable procedures and includes the following: [x] Data and vital sign review and interpretation [x ] Patient assessment, examination and intervention [x] Medication orders and management [x] Patient/Family updates as able [x] Care Coordination and Documentation. Diagnoses Small bowel obstruction K56.609 Volvulus of intestine K56.2 Hyponatremia E87.1 Essential hypertension I10 Hypertension type: essential hypertension COPD (chronic obstructive pulmonary disease) J44.9 Weight loss, unintentional R63.4 Hypothyroidism E03.9 Tobacco use disorder F17.200 Nausea and vomiting R11.2
--- NOTE | 2025-08-06 12:32 | PC.NURSE ---
CODE BLUE; 1142 CPR 1144 Pulse Check/Asy./CPR resumed 1144 Epi IVP 1145 Amp Atropine IVP 1146 Amp Bicarb IVP 1146 Pulse Check/CPR resumed 1148 Pulse Check/Asystole [address] Jovel.
--- NOTE | 2025-08-06 12:35 | PC.NURSE ---
MTS notified of TOD. Pt fully released @3078 Ref #[id number]
== END 2025-08-06 11:48 | disposition expired | DRG 336 ==
LOC: ER 14:36 → MEDSURG 17:28 → ICU 08-06 05:21 → MEDSURG 08-06 10:17
PROVIDERS: Clinical Nurse Specialist Acute Care; Family Medicine; Specialist; Admitting Provider Internal Medicine; Emergency Provider Emergency Medicine; PCP Family Medicine; Visit Provider Internal Medicine
PROC: 0DN80ZZ Release Small Intestine, Open Approach (ICD-10-PCS; CPT 49000; principal; 2025-08-05 19:00)
PROC: 0DN80ZZ Release Small Intestine, Open Approach (ICD-10-PCS; 2025-08-05 19:00)
DX: K55.1 Chronic vascular disorders of intestine (principal); E87.1 Hypo-osmolality and hyponatremia; Z68.1 Body mass index [BMI] 19.9 or less, adult; N17.9 Acute kidney failure, unspecified; I10 Essential (primary) hypertension; J43.9 Emphysema, unspecified; R63.4 Abnormal weight loss; E03.9 Hypothyroidism, unspecified; F17.200 Nicotine dependence, unspecified, uncomplicated; E78.5 Hyperlipidemia, unspecified; G89.29 Other chronic pain; M54.50 Low back pain, unspecified; F41.9 Anxiety disorder, unspecified; H54.7 Unspecified visual loss; I46.9 Cardiac arrest, cause unspecified; E88.09 Other disorders of plasma-protein metabolism, not elsewhere classified; I95.9 Hypotension, unspecified; F17.210 Nicotine dependence, cigarettes, uncomplicated; Z79.02 Long term (current) use of antithrombotics/antiplatelets; Z86.73 Personal history of transient ischemic attack (TIA), and cerebral infarction without residual deficits; Z82.3 Family history of stroke; Z82.49 Family history of ischemic heart disease and other diseases of the circulatory system
CPT/HCPCS: 36415; 36416; 36592; 36600; 51702; 71045; 74018; 74019; 74177; 80048; 80051; 80053; 81001; 82330; 82805; 82962; 83605; 83690; 83735; 84100; 85025; 86140; 86850; 86900; 87040; 87070; 87086; 87205; 93005; 94002; 94640; 94799; 96374; 99285; A4570; G0378; J0330; J0744; J0780; J1171; J2405; J2470; J2598; J2704; J3010; J3490; J7030; J7070; J7120; J7611; J7613; J7626; J7644; J9999; Q9963